=== PATIENT | female | born 1960 | race Caucasian/White ===

== ENCOUNTER 2016-09-29 18:20 | Emergency (ER) | payer OTHER ==
[~2016-09-29] VITALS: Ht 165.1 cm; Wt 77.1 kg
[~2016-09-29 18:20] MED LIST: ATOR40TA59 PO; BENZ100C2 PO; BENZ200C39 PO; CRESTOR20 MG PO; DOCU-27 PO; DOXY100T PO; DULO30CA2 PO; FERR325T58 PO; GLYB2.5T2 PO; IBUP-1007 PO; INSU300I SQ; MECL25TA3 PO; METF-620 PO; OMEP40CA5 PO; OXYC-244 PO; OXYC-323 PO; PRED20TA PO; PROAIR HFA8.5 GM INH; SENN-22 PO; SERT50TA PO
[2016-09-29] MEDS ORDERED: IBUPROFEN 800 MG TABLET. PO ONE (20:00)
[2016-09-29] MEDS ORDERED: MECLIZINE HCL 12.5 MG TABLET. PO ONE (20:00)
[2016-09-29] MEDS ORDERED: DIAZ5TAB PO (20:29)
[2016-09-29] MEDS ORDERED: MECL25TA3 PO (20:29)
[2016-09-29] MEDS ORDERED: ONDA4TAB10 PO (20:29)
[2016-09-29 20:30] VITALS: BP 130/67
--- NOTE | 2016-09-29 20:30 | PHYS DOC ---
Past Medical History Past Medical History: Diabetes-Type I, GERD, High Cholesterol Additional Past Medical Histor: Ryan's esophogus Past Surgical History: Hysterectomy, Other Additional Past Surgical Histo: bilateral mastectomy, removal of pelvic tumor Alcohol Use: None Drug Use: None Adult General Chief Complaint Chief Complaint: DIZZY/LIGHT HEADED HPI HPI Patient is a 56 year old female presenting to the emergency department for evaluation of intermittent vertigo that has been going on for the past 3 weeks. Patient states that it only affects her when she is moving her head. She says that it is happening more often now any walking and bending over makes her have the room spinning sensation. She says lying still she does not feel it but when she does have the room spinning sensation she feels quite nauseated. She denies any pain fevers chills nausea vomiting or other systemic symptoms. She does have pressure sensation in the left ear. Review of Systems Review of Systems Constitutional: Denies fever or chills [] Respiratory: Denies cough or shortness of breath [] Cardiovascular: No additional information not addressed in HPI [] GI: Denies abdominal pain, nausea, vomiting, bloody stools or diarrhea [] : Denies dysuria or hematuria [] Musculoskeletal: Denies back pain or joint pain [] Integument: Denies rash or skin lesions [] Neurologic: Denies headache, focal weakness or sensory changes [] Current Medications Current Medications Current Medications Medications (Trade) Dose Ordered Sig/[facility] Start Time Stop Time Status Last Admin Dose Admin Ibuprofen (Motrin) 800 mg 1X ONCE 09/29/16 20:00 09/29/16 20:01 DC 09/29/16 20:06 800 MG Meclizine HCl (Antivert) 25 mg 1X ONCE 09/29/16 20:00 09/29/16 20:01 DC 09/29/16 20:06 25 MG Allergies Allergies Allergies Coded Allergies Type Severity Reaction Last Updated Verified codeine Allergy Intermediate 03/05/16 Yes Physical Exam Physical Exam Constitutional: Well developed, well nourished, no acute distress, non-toxic appearance. [] HENT: Normocephalic, atraumatic, bilateral external ears normal, oropharynx moist, no oral exudates, nose normal. [] Eyes: PERRLA, EOMI, conjunctiva normal, no discharge. [] Neck: Normal range of motion, no tenderness, supple, no stridor. [] Cardiovascular:Heart rate regular rhythm, no murmur [] Lungs & Thorax: Bilateral breath sounds clear to auscultation [] Abdomen: Bowel sounds normal, soft, no tenderness, no masses, no pulsatile masses. [] Skin: Warm, dry, no erythema, no rash. [] Back: No tenderness, no CVA tenderness. [] Extremities: No tenderness, no cyanosis, no clubbing, ROM intact, no edema. [] Neurologic: Alert and oriented X 3, normal motor function, normal sensory function, no focal deficits noted. [] Psychologic: Affect normal, judgement normal, mood normal. [] Current Patient Data Vital Signs Vital Signs Date Time Temp Pulse Resp B/P (MAP) Pulse Ox O2 Delivery O2 Flow Rate FiO2 09/29/16 19:35 98.1 74 20 136/63 (87) 96 Room Air 98.1 Lab Values Laboratory Tests Test 09/29/16 19:42 Glucose (Fingerstick) 179 mg/dL (70-99) H EKG EKG [] Radiology/Procedures Radiology/Procedures [] Course & Med Decision Making Course & Med Decision Making Patient with classic positional intermittent vertigo. Patient is a symptomatic at rest and she only feels this when walking and her neurologic exam is completely normal including gait finger to nose and heel to eller. Patient will be discharged with meclizine and Valium and ibuprofen and instructions for Nasonex. Patient told to come back to the ER if her vertigo is intractable orders happening at rest. Patient aware and agreeable with plan for discharge and verbalized understanding of the need for short-term follow-up and strict ER return precautions discussed worsening pain weakness vertigo or other general concerns. Dragon Disclaimer Dragon Disclaimer This electronic medical record was generated, in whole or in part, using a voice recognition dictation system. Departure Departure Impression: Primary Impression: Vertigo Disposition: 01 HOME, SELF-CARE Condition: GOOD Referrals: DINORAH STEWART MD (PCP) Patient Instructions: Benign Positional Vertigo Additional Instructions: TAKE 400MG OF IBUPROFEN EVERY 6 HOURS AND NASONEX FOR EAR FULLNESS. FOLLOW WITH YOUR PCP LATER THIS WEEK TO ENSURE IMPROVEMENT AND COME BACK TO THE ED SOONER WITH ANY NEW OR WORSENING SYMPTOMS. THANK YOU! Scripts Diazepam (VALIUM) 5 Mg Tablet 5 MG PO TID Y for MUSCLE SPASMS, #10 TAB Prov: BLAKE FRANK DO 09/29/16 Ondansetron (ZOFRAN ODT) 4 Mg Tab.rapdis 4 MG PO BID Y for NAUSEA/VOMITING, #10 TAB Prov: BLAKE FRANK DO 09/29/16 Meclizine Hcl (MECLIZINE HCL) 25 Mg Tablet 1 TAB PO PRN TID Y for VERTIGO, #30 TAB Prov: BLAKE FRANK DO 09/29/16 BLAKE FRANK DO Sep 29, 2016 20:30
== END 2016-09-29 20:45 | disposition home or self-care (01) ==
LOC: ER 18:20
DX: R42 Dizziness and giddiness (principal); R11.0 Nausea; E10.9 Type 1 diabetes mellitus without complications; K21.9 Gastro-esophageal reflux disease without esophagitis; E78.00 Pure hypercholesterolemia, unspecified; K22.70 Barrett's esophagus without dysplasia; Z88.5 Allergy status to narcotic agent; Z90.13 Acquired absence of bilateral breasts and nipples; Z90.710 Acquired absence of both cervix and uterus
CPT/HCPCS: 82962; 99284; J8597

== ENCOUNTER 2016-10-03 10:32 | Inpatient (IN) | payer OTHER ==
[~2016-10-03] VITALS: Ht 165.1 cm; Wt 77.1 kg
[2016-10-03] MEDS: IV NORMAL SALINE 1000ML BAG 1,000 ML IV SCH ×2 (02:00→13:30)
[~2016-10-03 10:32] MED LIST changes: +BENZ100C15 PO; -BENZ100C2 PO; -BENZ200C39 PO; +BENZ200C47 PO; +DIAZ5TAB PO; +DOCU-109 PO; -DOCU-27 PO; +ONDA4TAB10 PO; -OXYC-244 PO; +OXYC-327 PO
[2016-10-03] MEDS ORDERED: IV NORMAL SALINE 1000ML BAG 1,000 ML IV SCH (11:26)
[2016-10-03] MEDS ORDERED: MECLIZINE HCL 12.5 MG TABLET. PO ONE (11:30)
[2016-10-03] MEDS ORDERED: ONDANSETRON PF 4 MG/2 ML VIAL. IV ONE (11:30)
[2016-10-03 11:52] LABS: EOS % 2 % (0-3); HEMOGLOBIN 12.3 g/dL (12.0-15.5); LYMPH % 27 % (24-48); MEAN CORPUSCULAR HEMOGLOBIN 24 pg (25-35); MEAN CORPUSCULAR HGB CONC 32 g/dL (31-37); MEAN CORPUSCULAR VOLUME 77 fL (79-100); MONO % 5 % (0-9); NEUT % 65 % (31-73); PLATELET COUNT 198 x10^3/uL (140-400); RED BLOOD COUNT 5.07 x10^6/uL (3.50-5.40); RED CELL DISTRIBUTION WIDTH 16.8 % (11.5-14.5); WHITE BLOOD COUNT 6.7 x10^3/uL (4.0-11.0)
[2016-10-03 11:53] LABS: BASO % 1 % (0-3); LYMPH # 1.8 x10^3/uL (1.0-4.8)
[2016-10-03 11:54] LABS: INR 1.1 (0.8-1.1); PROTHROMBIN TIME PATIENT 13.4 SEC (11.7-14.0)
--- NOTE | 2016-10-03 11:58 | RAD ---
CT of the head without contrast, 10/13/2016: History: Vertigo Comparison is made to a study from 03/15/2016. The ventricles are within normal limits in size. There is no shift of the midline structures. There is no evidence of acute intracranial hemorrhage or mass effect. Minimal bilateral basal ganglia calcifications are present. IMPRESSION: No acute intracranial abnormality is detected. PQRS Compliance Statement: One or more of the following individualized dose reduction techniques were utilized for this examination: 1. Automated exposure control 2. Adjustment of the mA and/or kV according to patient size 3. Use of iterative reconstruction technique
[2016-10-03 11:59] LABS: CREATININE 0.9 mg/dL (0.6-1.0); GFR 65.2; POTASSIUM 4.1 mmol/L (3.5-5.1)
[2016-10-03 12:03] LABS: ALBUMIN 3.5 g/dL (3.4-5.0); ALBUMIN/GLOBULIN RATIO 0.7 (1.0-1.7); CALCIUM 9.1 mg/dL (8.5-10.1); TOTAL BILIRUBIN 0.3 mg/dL (0.2-1.0); TOTAL PROTEIN 8.7 g/dL (6.4-8.2)
[2016-10-03 12:04] LABS: MAGNESIUM 1.3 mg/dL (1.8-2.4)
[2016-10-03 12:24] LABS: BACTERIA,URINE FEW /HPF (0-FEW); BILIRUBIN,URINE NEGATIVE (NEG); GLUCOSE,URINE >=1000 mg/dL (NEG); NITRITE,URINE NEGATIVE (NEG); PH,URINE 5.5; PROTEIN,URINE 30 mg/dL (NEG-TRACE); RBC,URINE 0 /HPF (0-2); SQUAMOUS EPITHELIAL CELL,UR MOD /LPF; UROBILINOGEN,URINE 0.2 mg/dL (0.2 mg/dL)
[2016-10-03] MEDS ORDERED: ACETAMINOPHEN 325 MG TABLET. PO PRN (13:30)
[2016-10-03] MEDS ORDERED: fentaNYL PF VIAL 100 MCG/2 ML VIAL IV PRN (13:30)
[2016-10-03] MEDS ORDERED: ONDANSETRON PF 4 MG/2 ML VIAL. IV PRN (13:30)
--- NOTE | 2016-10-03 13:56 | PHYS DOC ---
Past Medical History Past Medical History: Diabetes-Type I, GERD, High Cholesterol Additional Past Medical Histor: Ryan's esophogus Past Surgical History: Hysterectomy, Other Additional Past Surgical Histo: bilateral mastectomy, removal of pelvic tumor Alcohol Use: None Drug Use: None Adult General Chief Complaint Chief Complaint: DIZZY/LIGHT HEADED HPI HPI Patient is a 56 year old female who presents with complaint of dizziness. Patient states that she has been having symptoms for the past 2-3 weeks. Patient was seen 4 days ago in the emergency department and treated for peripheral vertigo with meclizine and Valium. Patient states that despite outpatient treatment she is still had worsening symptoms. Patient states that the symptoms do worsen with positional changes. Patient states that she has had to stay in bed and only be able to get up to use the restroom due to severe symptoms. Patient denies any fevers. The patient is concerned since her symptoms have resolved whether she may have experienced a stroke. Patient denies any unilateral weakness or difficulty with speech or swallowing. Patient does admit to nausea associated with her dizziness. Review of Systems Review of Systems Constitutional: Denies fever or chills [] Eyes: Denies change in visual acuity, redness, or eye pain [] HENT: Denies nasal congestion or sore throat [] Respiratory: Denies cough or shortness of breath [] Cardiovascular: Denies chest pain or edema [] GI: Nausea, denies abdominal pain, vomiting, bloody stools or diarrhea [] : Denies dysuria or hematuria [] Musculoskeletal: Denies back pain or joint pain [] Integument: Denies rash or skin lesions [] Neurologic: Dizziness, denies focal weakness or sensory changes [] Current Medications Current Medications Current Medications Medications (Trade) Dose Ordered Sig/[facility] Start Time Stop Time Status Last Admin Dose Admin Diazepam (Valium) 2 mg 1X ONCE 10/03/16 11:30 10/03/16 11:31 DC 10/03/16 12:02 2 MG Meclizine HCl (Antivert) 25 mg 1X ONCE 10/03/16 11:30 10/03/16 11:31 DC 10/03/16 11:57 25 MG Ondansetron HCl (Zofran) 4 mg 1X ONCE 10/03/16 11:30 10/03/16 11:31 DC 10/03/16 11:57 4 MG Sodium Chloride 1,000 ml @ 1,000 mls/hr Q1H 10/03/16 11:26 10/03/16 12:25 DC 10/03/16 12:03 1,000 MLS/HR Allergies Allergies Allergies Coded Allergies Type Severity Reaction Last Updated Verified codeine Allergy Intermediate 03/05/16 Yes Physical Exam Physical Exam Constitutional: Alert, afebrile, appears fatigued and in moderate discomfort. [] HENT: Normocephalic, atraumatic, bilateral external ears normal, oropharynx moist, no oral exudates, nose normal. [] Eyes: PERRLA, EOMI, conjunctiva normal, no discharge. [] Neck: Normal range of motion, no tenderness, supple, no stridor. [] Cardiovascular:Heart rate regular rhythm, no murmur [] Lungs & Thorax: Bilateral breath sounds clear to auscultation [] Abdomen: Bowel sounds normal, soft, no tenderness, no masses, no pulsatile masses. [] Skin: Warm, dry, no erythema, no rash. [] Back: No tenderness, no CVA tenderness. [] Extremities: No tenderness, no cyanosis, no clubbing, ROM intact, no edema. [] Neurologic: Alert and oriented X 3, normal motor function, normal sensory function, no focal deficits noted. [] Current Patient Data Vital Signs Vital Signs Date Time Temp Pulse Resp B/P (MAP) Pulse Ox O2 Delivery O2 Flow Rate FiO2 10/03/16 10:36 98.4 80 18 162/75 (104) 96 Room Air 98.4 Lab Values Laboratory Tests Test 10/03/16 11:30 10/03/16 12:05 White Blood Count 6.7 x10^3/uL (4.0-11.0) Red Blood Count 5.07 x10^6/uL (3.50-5.40) Hemoglobin 12.3 g/dL (12.0-15.5) Hematocrit 39.0 % (36.0-47.0) Mean Corpuscular Volume 77 fL (79-100) L Mean Corpuscular Hemoglobin 24 pg (25-35) L Mean Corpuscular Hemoglobin Concent 32 g/dL (31-37) Red Cell Distribution Width 16.8 % (11.5-14.5) H Platelet Count 198 x10^3/uL (140-400) Neutrophils (%) (Auto) 65 % (31-73) Lymphocytes (%) (Auto) 27 % (24-48) Monocytes (%) (Auto) 5 % (0-9) Eosinophils (%) (Auto) 2 % (0-3) Basophils (%) (Auto) 1 % (0-3) Neutrophils # (Auto) 4.3 x10^3uL (1.8-7.7) Lymphocytes # (Auto) 1.8 x10^3/uL (1.0-4.8) Monocytes # (Auto) 0.3 x10^3/uL (0.0-1.1) Eosinophils # (Auto) 0.1 x10^3/uL (0.0-0.7) Basophils # (Auto) 0.0 x10^3/uL (0.0-0.2) Prothrombin Time 13.4 SEC (11.7-14.0) Prothrombin Time INR 1.1 (0.8-1.1) PTT 34 SEC (24-38) Sodium Level 135 mmol/L (136-145) L Potassium Level 4.1 mmol/L (3.5-5.1) Chloride Level 98 mmol/L (98-107) Carbon Dioxide Level 28 mmol/L (21-32) Anion Gap 9 (6-14) Blood Urea Nitrogen 11 mg/dL (7-20) Creatinine 0.9 mg/dL (0.6-1.0) Estimated GFR (Cockcroft-Gault) 65.2 BUN/Creatinine Ratio 12 (6-20) Glucose Level 281 mg/dL (70-99) H Calcium Level 9.1 mg/dL (8.5-10.1) Magnesium Level 1.3 mg/dL (1.8-2.4) L Total Bilirubin 0.3 mg/dL (0.2-1.0) Aspartate Amino Transferase (AST) 60 U/L (15-37) H Alanine Aminotransferase (ALT) 62 U/L (14-59) H Alkaline Phosphatase 129 U/L (46-116) H Total Protein 8.7 g/dL (6.4-8.2) H Albumin 3.5 g/dL (3.4-5.0) Albumin/Globulin Ratio 0.7 (1.0-1.7) L Lipase 388 U/L (73-393) Urine Collection Type Void Urine Color Yellow Urine Clarity Turbid Urine pH 5.5 Urine Specific Jones 1.025 Urine Protein 30 mg/dL (NEG-TRACE) Urine Glucose (UA) >=1000 mg/dL (NEG) Urine Ketones (Stick) Negative mg/dL (NEG) Urine Blood Negative (NEG) Urine Nitrite Negative (NEG) Urine Bilirubin Negative (NEG) Urine Urobilinogen Dipstick 0.2 mg/dL (0.2 mg/dL) Urine Leukocyte Esterase Negative (NEG) Urine RBC 0 /HPF (0-2) Urine WBC 1-4 /HPF (0-4) Urine Squamous Epithelial Cells Mod /LPF Urine Bacteria Few /HPF (0-FEW) Urine Mucus Marked /LPF Laboratory Tests 10/03/16 11:30 Laboratory Tests 10/03/16 11:30 EKG EKG Interpreted by me: Heart rate 83, sinus rhythm, normal intervals, normal axis, no acute ST/T-wave abnormalities present [] Radiology/Procedures Radiology/Procedures [facility] [address] [place], [place] [id number] IMAGING REPORT Signed PATIENT: AUDREY BLANCO ACCOUNT: [id number] : 1960 LOCATION: ER AGE: 56 SEX: F EXAM STATUS: REG ER ORD. PHYSICIAN: HANNAH RECINOS MD REASON: vertigo symptoms for 3 weeks PROCEDURE: CT HEAD WO CONTRAST CT of the head without contrast, 10/13/2016: History: Vertigo Comparison is made to a study from 03/15/2016. The ventricles are within normal limits in size. There is no shift of the midline structures. There is no evidence of acute intracranial hemorrhage or mass effect. Minimal bilateral basal ganglia calcifications are present. IMPRESSION: No acute intracranial abnormality is detected. PQRS Compliance Statement: One or more of the following individualized dose reduction techniques were utilized for this examination: 1. Automated exposure control 2. Adjustment of the mA and/or kV according to patient size 3. Use of iterative reconstruction technique DICTATED and SIGNED BY: JOHNNIE BARNHART MD DATE: 10/03/16 6515 CC: HANNAH RECINOS MD; DINORAH STEWART MD ~ [] Course & Med Decision Making Course & Med Decision Making Pertinent Labs and Imaging studies reviewed. (See chart for details) Patient was given IV Valium and oral meclizine with mild improvement in symptoms. The patient continues to have significant symptoms that are keeping her from being able to perform activities of daily living. Due to failure of outpatient treatment, the patient will need admission to the hospital for continued symptomatic control and further workup. I spoke with Dr. Crespo who accepted care patient in hospital. A consult was placed to Dr. Hughes of neurology to follow with patient in hospital. Dragon Disclaimer Dragon Disclaimer This electronic medical record was generated, in whole or in part, using a voice recognition dictation system. Departure Departure Impression: Primary Impression: Vertigo Additional Impression: Failure of outpatient treatment Disposition: ADMITTED INPATIENT Admitting Physician: Rupa Crespo Condition: STABLE Referrals: DINORAH STEWART MD (PCP) Problem Qualifiers HANNAH RECINOS MD Oct 03, 2016 13:56
[2016-10-03 14:00] VITALS: BP 135/65
--- NOTE | 2016-10-03 14:23 | ACF ---
Admission Forms Criteria VERTIGO Clinical Indications for Admission to Inpatient Care (Place 'X' for any and all applicable criteria): Admission is indicated for ANY ONE of the following(1)(2)(3)(4): [ ]I. Acute bacterial labyrinthitis [ ]II. A suspected etiology that requires admission for treatment [X]III. Inpatient admission required rather than observation care (Also use Vertigo: Observation Care as appropriate) because of ANY ONE of the following: [ ]a) Hemodynamic instability that is severe or persistent [X]b) Signs or symptoms that are severe or persistent (eg, vomiting , orthostasis, inability to ambulate) [ ]c) Cardiac arrhythmias of immediate concern [ ]d) Severe (new) neurologic findings requiring inpatient care as indicated by ANY ONE of the following(6)(7) [ ]1) Cerebral bleeding, ischemia, or vasospasm(8)(9) [ ]2) Increased intracranial pressure or hydrocephalus(10) (11)(12) [ ]3) Papilledema [ ]4) Cerebral edema [ ]5) Mass effect on CT scan [ ]e) Vomiting that is severe or persistent [ ]f) Continuous IV infusion of anticoagulation, platelet inhibitor, vasoactive, or antiarrhythmic medication [ ]g) Cerebral bleeding, hydrocephalus, or vasospasm monitoring(14) [ ]h) Increased intracranial pressure or cerebral edema monitoring [ ]i) Other condition, treatment or monitoring requiring inpatient admission [ ]IV. Cerebellar, brainstem, or cerebral ischemia or hemorrhage(5) Extended stay beyond goal length of stay may be needed for evaluating and treating a specific cause of dizziness, including(26): [ ]a) Head injury (27) ( Also use Traumatic Brain Injury, Nonsurgical Treatment guideline) [ ]b) New-onset vertebrobasilar vascular insufficiency(23) [ ]c) Acute Meniere disease with intractable symptoms [ ]d) Cardiac arrhythmias or conduction defects [ ]e) Acute neurologic event causing dizziness [ ]f) Myocardial ischemia [ ]g) Acute bacterial labyrinthitis(1) [ ]h) Severe acute vestibular neuronitis(18) The original [employer] content created by [employer]án [employer] has been revised. The portions of the content which have been revised are identified through the use of italic text or in bold, and [employer]án [employer] has neither reviewed nor approved the modified material. All other unmodified content is copyright [facility]. Please see references footnoted in the original [facility] edition 2016 Admission Criteria Met?: Yes CEASAR GODOY Oct 03, 2016 14:23
[2016-10-03] MEDS ORDERED: INSU100I13 SQ (14:47)
[2016-10-03] MEDS ORDERED: LISI2.5T PO (14:47)
[2016-10-03] MEDS ORDERED: INSU100I17 SQ (14:47)
--- NOTE | 2016-10-03 14:54 | EKG ---
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
--- NOTE | 2016-10-03 18:00 | HP ---
ADMIT DATE: 10/03/2016 CHIEF COMPLAINT: Vertigo. HISTORY OF PRESENT ILLNESS: The patient is a pleasant 56-year-old female who presented to the ER with vertigo. She rates it 11/03. She has got associated nausea. It has been occurring for a day or so. She tried taking some home meds, but that was not working. I discussed the case with the ER physician. We are going to admit the patient and consult Neurology. PAST MEDICAL HISTORY: Pneumonia, sepsis, right shoulder fracture, bronchitis, diabetes, breast cancer with double mastectomy, hysterectomy. ALLERGIES: None. FAMILY HISTORY: Breast cancer. SOCIAL HISTORY: She does not drink, smoke or take drugs. MEDICATIONS: Reviewed, please refer to the MRAD. REVIEW OF SYSTEMS: GENERAL: No history of weight change, weakness or fevers. SKIN: No bruising, hair changes or rashes. EYES: No blurred, double or loss of vision. NOSE AND THROAT: No history of nosebleeds, hoarseness or sore throat. HEART: No history of palpitations, chest pain or shortness of breath on exertion. LUNGS: Denies cough, hemoptysis, wheezing or shortness of breath. GASTROINTESTINAL: Denies changes in appetite, nausea, vomiting, diarrhea or constipation. GENITOURINARY: No history of frequency, urgency, hesitancy or nocturia. NEUROLOGIC: She complains of vertigo. PSYCHIATRIC: No history of panic, anxiety or depression. ENDOCRINE: No history of heat or cold intolerance, polyuria or polydipsia. EXTREMITIES: Denies muscle weakness, joint pain, pain on walking or stiffness. PHYSICAL EXAMINATION: VITAL SIGNS: Temperature afebrile, pulse 68, respirations 18, blood pressure 144/90. GENERAL: She is alert, cooperative. HEART: Normal S1, S2. LUNGS: Clear. ABDOMEN: Soft, positive bowel sounds. EXTREMITIES: No edema. SKIN: No rashes. PSYCHIATRIC: She is stable. VASCULAR: Good capillary refill. ENDOCRINE: No thyromegaly. LYMPHATICS: No cervical nodes. HEMATOPOIETIC: No bruising. LABORATORY DATA: Reviewed. CT of the head was negative. ASSESSMENT AND PLAN: Vertigo, suspect vestibular dysfunction, perhaps a viral vestibulitis. The patient has been admitted. We will give her p.r.n. Antivert, IV fluids. Consult Dr. Hughes. PT, OT. Continue home medicines. ADAML Darrell ARITA DO DR: Elen JOB#: [id number] / [id number]
[2016-10-03 19:47] VITALS: BP_SYST 101; BP_SYST 150; BP_DIAS 44; BP_DIAS 45
[2016-10-03 23:26] VITALS: BP 104/54
[2016-10-04] MEDS: MECLIZINE HCL 12.5 MG TABLET. PO PRN (03:16)
[2016-10-04 04:48] LABS: BASO % 1 % (0-3); EOS % 2 % (0-3); HEMATOCRIT 35.1 % (36.0-47.0); HEMOGLOBIN 10.8 g/dL (12.0-15.5); LYMPH # 1.8 x10^3/uL (1.0-4.8); LYMPH % 37 % (24-48); MEAN CORPUSCULAR HEMOGLOBIN 24 pg (25-35); MEAN CORPUSCULAR HGB CONC 31 g/dL (31-37); MEAN CORPUSCULAR VOLUME 77 fL (79-100); MONO % 6 % (0-9); NEUT % 54 % (31-73); PLATELET COUNT 161 x10^3/uL (140-400); RED BLOOD COUNT 4.55 x10^6/uL (3.50-5.40); RED CELL DISTRIBUTION WIDTH 16.7 % (11.5-14.5); WHITE BLOOD COUNT 4.9 x10^3/uL (4.0-11.0)
[2016-10-04 05:15] LABS: CALCIUM 8.4 mg/dL (8.5-10.1); CREATININE 0.7 mg/dL (0.6-1.0); GFR 87.2; POTASSIUM 4.4 mmol/L (3.5-5.1)
[2016-10-04 07:00] VITALS: BP 132/54
[2016-10-04] MEDS: IV NORMAL SALINE 1000ML BAG 1,000 ML IV SCH (09:30)
[2016-10-04] MEDS: ASPIRIN CHEWABLE 81 MG TABLET. PO SCH (10:23)
[2016-10-04] MEDS ORDERED: ALBUTEROL SULFATE 2.5 MG/3 ML NEBU. NEB PRN (10:30)
[2016-10-04] MEDS ORDERED: ONDANSETRON ODT 4 MG TAB.RAPDIS. PO PRN (10:30)
[2016-10-04] MEDS ORDERED: NON FORMULARY ITEM (Albuterol Sulfate (Proair Hfa Inhaler) 1 PUFF) INH PRN (10:30)
[2016-10-04] MEDS: DULoxetine HCL 30 MG CAPSULE.DR PO SCH (10:35)
[2016-10-04] MEDS: oxyCODONE/APAP 5/325 1 TAB TABLET PO PRN ×2 (10:35→17:50)
[2016-10-04] MEDS: SERTRALINE 50 MG TABLET. PO SCH (10:35)
[2016-10-04] MEDS: FERROUS SULFATE 325 MG TABLET. PO SCH (10:35)
[2016-10-04] MEDS: PANTOPRAZOLE 40 MG TABLET.DR. PO SCH (10:35)
[2016-10-04] MEDS: glyBURIDE 5 MG TABLET PO SCH (10:36)
[2016-10-04] MEDS: LISINOPRIL 2.5 MG TABLET PO SCH (10:36)
--- NOTE | 2016-10-04 10:37 | PDOC ---
PROGRESS NOTES Chief Complaint Chief Complaint Vertigo ASSESSMENT AND PLAN: 1. Vertigo: ?vestibular dysfxn. neurology consult pending, MRI brain pending. treat symptomatically for now 2. Neck pain: new in past couple of days. eval with MRI (add on to brain scan ); heat, pain meds for now. no UEs neurological dysfxn 3. DM: on metformin, glyburide and insulin at home. currently good control ( poor PO intake). hold metformin for now. add ISS 4. HTN: well controlled on home meds 5. HLD: on statin 6. Chronic pain syndrome. continue home meds 7. Abn LFTs: chronic. previous viral hepatitis panel neg 8. Anemia: microcytic. by previous iron studies, due to combo of iron deficiency and chronic inflammation. on PO repletion 9. Prophylaxis: lovenox History of Present Illness History of Present Illness c/o persistent dizziness, but able to walk, took shower this AM. no nausea, but did not eat breakfast. Vitals Vitals Vital Signs Date Time Temp Pulse Resp B/P (MAP) Pulse Ox O2 Delivery O2 Flow Rate FiO2 10/04/16 07:00 98.4 66 18 132/54 (80) 93 Room Air 98.4 Physical Exam General: Alert, Oriented X3, Cooperative, No acute distress Heart: Regular rate Lungs: Clear Abdomen: Normal bowel sounds, Soft, No tenderness Extremities: No edema Skin: No rashes Labs LABS Laboratory Tests Test 10/03/16 11:30 10/03/16 12:05 10/03/16 16:25 10/03/16 20:42 White Blood Count 6.7 x10^3/uL (4.0-11.0) Red Blood Count 5.07 x10^6/uL (3.50-5.40) Hemoglobin 12.3 g/dL (12.0-15.5) Hematocrit 39.0 % (36.0-47.0) Mean Corpuscular Volume 77 fL (79-100) Mean Corpuscular Hemoglobin 24 pg (25-35) Mean Corpuscular Hemoglobin Concent 32 g/dL (31-37) Red Cell Distribution Width 16.8 % (11.5-14.5) Platelet Count 198 x10^3/uL (140-400) Neutrophils (%) (Auto) 65 % (31-73) Lymphocytes (%) (Auto) 27 % (24-48) Monocytes (%) (Auto) 5 % (0-9) Eosinophils (%) (Auto) 2 % (0-3) Basophils (%) (Auto) 1 % (0-3) Neutrophils # (Auto) 4.3 x10^3uL (1.8-7.7) Lymphocytes # (Auto) 1.8 x10^3/uL (1.0-4.8) Monocytes # (Auto) 0.3 x10^3/uL (0.0-1.1) Eosinophils # (Auto) 0.1 x10^3/uL (0.0-0.7) Basophils # (Auto) 0.0 x10^3/uL (0.0-0.2) Prothrombin Time 13.4 SEC (11.7-14.0) Prothromb Time International Ratio 1.1 (0.8-1.1) Activated Partial Thromboplast Time 34 SEC (24-38) Sodium Level 135 mmol/L (136-145) Potassium Level 4.1 mmol/L (3.5-5.1) Chloride Level 98 mmol/L (98-107) Carbon Dioxide Level 28 mmol/L (21-32) Anion Gap 9 (6-14) Blood Urea Nitrogen 11 mg/dL (7-20) Creatinine 0.9 mg/dL (0.6-1.0) Estimated GFR (Cockcroft-Gault) 65.2 BUN/Creatinine Ratio 12 (6-20) Glucose Level 281 mg/dL (70-99) Calcium Level 9.1 mg/dL (8.5-10.1) Magnesium Level 1.3 mg/dL (1.8-2.4) Total Bilirubin 0.3 mg/dL (0.2-1.0) Aspartate Amino Transf (AST/SGOT) 60 U/L (15-37) Alanine Aminotransferase (ALT/SGPT) 62 U/L (14-59) Alkaline Phosphatase 129 U/L (46-116) Total Protein 8.7 g/dL (6.4-8.2) Albumin 3.5 g/dL (3.4-5.0) Albumin/Globulin Ratio 0.7 (1.0-1.7) Lipase 388 U/L (73-393) Urine Collection Type Void Urine Color Yellow Urine Clarity Turbid Urine pH 5.5 Urine Specific Orient 1.025 Urine Protein 30 mg/dL (NEG-TRACE) Urine Glucose (UA) >=1000 mg/dL (NEG) Urine Ketones (Stick) Negative mg/dL (NEG) Urine Blood Negative (NEG) Urine Nitrite Negative (NEG) Urine Bilirubin Negative (NEG) Urine Urobilinogen Dipstick 0.2 mg/dL (0.2 mg/dL) Urine Leukocyte Esterase Negative (NEG) Urine RBC 0 /HPF (0-2) Urine WBC 1-4 /HPF (0-4) Urine Squamous Epithelial Cells Mod /LPF Urine Bacteria Few /HPF (0-FEW) Urine Mucus Marked /LPF Glucose (Fingerstick) 149 mg/dL (70-99) 174 mg/dL (70-99) Test 10/04/16 03:30 10/04/16 07:33 White Blood Count 4.9 x10^3/uL (4.0-11.0) Red Blood Count 4.55 x10^6/uL (3.50-5.40) Hemoglobin 10.8 g/dL (12.0-15.5) Hematocrit 35.1 % (36.0-47.0) Mean Corpuscular Volume 77 fL (79-100) Mean Corpuscular Hemoglobin 24 pg (25-35) Mean Corpuscular Hemoglobin Concent 31 g/dL (31-37) Red Cell Distribution Width 16.7 % (11.5-14.5) Platelet Count 161 x10^3/uL (140-400) Neutrophils (%) (Auto) 54 % (31-73) Lymphocytes (%) (Auto) 37 % (24-48) Monocytes (%) (Auto) 6 % (0-9) Eosinophils (%) (Auto) 2 % (0-3) Basophils (%) (Auto) 1 % (0-3) Neutrophils # (Auto) 2.7 x10^3uL (1.8-7.7) Lymphocytes # (Auto) 1.8 x10^3/uL (1.0-4.8) Monocytes # (Auto) 0.3 x10^3/uL (0.0-1.1) Eosinophils # (Auto) 0.1 x10^3/uL (0.0-0.7) Basophils # (Auto) 0.0 x10^3/uL (0.0-0.2) Sodium Level 144 mmol/L (136-145) Potassium Level 4.4 mmol/L (3.5-5.1) Chloride Level 107 mmol/L (98-107) Carbon Dioxide Level 32 mmol/L (21-32) Anion Gap 5 (6-14) Blood Urea Nitrogen 8 mg/dL (7-20) Creatinine 0.7 mg/dL (0.6-1.0) Estimated GFR (Cockcroft-Gault) 87.2 Glucose Level 178 mg/dL (70-99) Calcium Level 8.4 mg/dL (8.5-10.1) Glucose (Fingerstick) 149 mg/dL (70-99) BALJIT MOSS MD Oct 04, 2016 10:37
[2016-10-04] MEDS: ENOXAPARIN 40 MG/0.4 ML SYRINGE. SQ SCH (10:44)
[2016-10-04 10:57] VITALS: BP 124/74
[2016-10-04 14:56] VITALS: BP 115/53
--- NOTE | 2016-10-04 15:27 | RAD ---
Indication vertigo. Pain in the back of the head. Duration approximately 3 weeks. MRI examination of the head was performed. Imaging sequences which were obtained include sagittal T1, axial T1, T2, FLAIR and gradient echo sequences. Axial ADC and DWI maps were also obtained. No prior MRI imaging of the head is available. On the ADC and DWI maps no recent or acute infarct is seen. On the gradient echo sequence there is no evidence of hemorrhage. No significant microvascular disease is seen on the FLAIR sequence. The ventricles and sulci are normal. No acute or significant finding is seen. IMPRESSION: No acute or significant finding seen in the head
--- NOTE | 2016-10-04 16:46 | PDOC2 ---
CONSULT Date of Consult Date of Consult DATE: 10/04/16 TIME: 16:44 Reason for Consult Reason for Consult: Vertigo History of Present Illness Reason for Visit: This patient is 56-year-old woman who presented to emergency room with complaint of vertigo. Patient was recently evaluated for symptoms of vertigo patient reports last few months she is having problems with dizziness. She was having some worsening of symptoms in last few days. Patient currently has improvement in her symptoms. Patient will have more symptoms of vertigo, dizziness when she is trying to change her body position in bed or trying to get out of the bed quickly. Likely benign positional vertigo. MRI of the brain done did not show any acute intracranial process We'll treat symptomatically will use meclizine as needed We can also use low-dose Valium to help with symptoms. Past Medical History Cardiovascular: Hyperlipidemia Pulmonary: Bronchitis CENTRAL NERVOUS SYSTEM: Periperal neuropathy GI: GERD, Other Heme/Onc: Anemia NOS, Cancer Hepatobiliary: No pertinent hx Psych: Depression Musculoskeletal: Osteoarthritis Rheumatologic: No pertinent hx Infectious disease: No pertinent hx Renal/: UTI Endocrine: Diabetes Past Surgical History Past Surgical History: Mastectomy, Hysterectomy Family History Family History: Cancer, Coronary Artery Disease Social History ALCOHOL: none Drugs: None Lives: with Family Current Problem List Problem List Problems Medical Problems: (1) Failure of outpatient treatment Status: Acute (2) Vertigo Status: Acute Current Medications Current Medications Current Medications Ondansetron HCl (Zofran) 4 mg 1X ONCE IV Last administered on 10/03/16 11:57; Start 10/03/16 at 11:30; Stop 10/03/16 at 11:31; Status DC Meclizine HCl (Antivert) 25 mg 1X ONCE PO Last administered on 10/03/16 11:57 ; Start 10/03/16 at 11:30; Stop 10/03/16 at 11:31; Status DC Sodium Chloride 1,000 ml @ 1,000 mls/hr Q1H IV Last administered on 10/03/16 12:03; Start 10/03/16 at 11:26; Stop 10/03/16 at 12:25; Status DC Diazepam (Valium) 2 mg 1X ONCE IV Last administered on 10/03/16 12:02; Start 10/03/16 at 11:30; Stop 10/03/16 at 11:31; Status DC Ondansetron HCl (Zofran) 4 mg PRN Q8HRS PRN IV NAUSEA/VOMITING; Start 10/03/16 at 13:30; Stop 10/04/16 at 13:29; Status DC Fentanyl Citrate (Fentanyl 2ml Vial) 50 mcg PRN Q2HR PRN IV PAIN; Start at 13:30; Stop 10/04/16 at 10:36; Status DC Sodium Chloride 1,000 ml @ 100 mls/hr Q10H IV Last administered on 10/04/16 09:30; Start 10/03/16 at 13:30; Stop 10/04/16 at 13:29; Status DC Acetaminophen (Tylenol) 650 mg PRN Q4HRS PRN PO FEVER Last administered on 10/04 03:14; Start 10/03/16 at 13:30; Stop 10/04/16 at 13:29; Status DC Meclizine HCl (Antivert) 12.5 mg PRN Q6HRS PRN PO DIZZINESS Last administered on 10/04/16 03:16; Start 10/03/16 at 13:30 Diazepam (Valium) 2 mg PRN Q6HRS PRN IV DIZZINESS; Start 10/03/16 at 13:30 Aspirin (Children'S Aspirin) 81 mg DAILYWBKFT PO Last administered on 10:23; Start 10/04/16 at 10:15 Atorvastatin Calcium (Lipitor) 40 mg QHS PO ; Start 10/04/16 at 21:00 Diazepam (Valium) 5 mg PRN TID PRN PO MUSCLE SPASM; Start 10/04/16 at 10:30 Duloxetine HCl (Cymbalta) 30 mg DAILY PO Last administered on 10/04/16 10:35; Start 10/04/16 at 11:00 Ferrous Sulfate (Feosol) 325 mg DAILYWBKFT PO Last administered on 10/04/16 10 :35; Start 10/04/16 at 11:00 Lisinopril (Prinivil) 2.5 mg DAILY PO Last administered on 10/04/16 10:36; Start 10/04/16 at 11:00 Ondansetron HCl (Zofran Odt) 4 mg PRN BID PRN PO NAUSEA/VOMITING; Start at 10:30 Oxycodone/ Acetaminophen (Percocet 5/325) 1 tab PRN Q6HRS PRN PO PAIN Last administered on 10/04/16 10:35; Start 10/04/16 at 10:30 Sertraline HCl (Zoloft) 50 mg DAILY PO Last administered on 10/04/16 10:35; Start 10/04/16 at 11:00 Non-Formulary Medication 1 puff PRN Q6HRS PRN INH SHORTNESS OF BREATH; Start at 10:30; Status UNV Glyburide (Diabeta) 2.5 mg DAILY PO Last administered on 10/04/16 10:36; Start 10/04/16 at 11:00 Insulin Detemir (Levemir) 50 units QHS SQ ; Start 10/04/16 at 21:00 Pantoprazole Sodium (Protonix) 40 mg DAILYAC PO Last administered on 10/04/16 10:35; Start 10/04/16 at 11:00 Albuterol Sulfate (Ventolin Neb Soln) 2.5 mg PRN Q6HRS PRN NEB SHORTNESS OF BREATH; Start 10/04/16 at 10:30 Enoxaparin Sodium (Lovenox 40mg Syringe) 40 mg Q24H SQ Last administered on 10:44; Start 10/04/16 at 11:00 Active Scripts Active Valium (Diazepam) 5 Mg Tablet 5 Mg PO TID PRN Zofran Odt (Ondansetron) 4 Mg Tab.rapdis 4 Mg PO BID PRN Meclizine Hcl 25 Mg Tablet 1 Tab PO PRN TID PRN Benzonatate 200 Mg Capsule 1 Cap PO TID Prednisone 20 Mg Tablet 40 Mg PO DAILY 5 Days Proair Hfa Inhaler (Albuterol Sulfate) 8.5 Gm Hfa.aer.ad 1 Puff INH PRN Q6HRS PRN Meclizine Hcl 25 Mg Tablet 1 Tab PO TID Ibuprofen 600 Mg Tablet 600 Mg PO PRN Q6HRS PRN Percocet 5-325 Mg Tablet (Oxycodone/Acetaminophen) 1 Each Tablet 1 Tab PO PRN Q6HRS PRN Percocet 7.5-325 Mg Tablet (Oxycodone/Acetaminophen) 1 Each Tablet 1-2 Tab PO Q4 -6HRS PRN Iron Supplement (Ferrous Sulfate) 325 Mg Tablet 1 Tab PO DAILY Reported Lantus Solostar (Insulin Glargine,Hum.rec.anlog) 100 Unit/1 Ml Insuln.pen 50 Unit SQ QHS Lisinopril 2.5 Mg Tablet 1 Tab PO DAILY Novolog Flexpen (Insulin Aspart) 100 Unit/1 Ml Insuln.pen 12 Unit SQ TIDWMEALHC Daisy Solostar (Insulin Glargine,Hum.rec.anlog) 300 Unit/1 Ml Insuln.pen Unknown Dose SQ HS PRN Atorvastatin Calcium 40 Mg Tablet 40 Mg PO DAILY Zoloft (Sertraline Hcl) 50 Mg Tablet 50 Mg PO DAILY Omeprazole 40 Mg Capsule.dr 40 Mg PO DAILY Metformin Hcl 1,000 Mg Tablet 2,000 Mg PO DAILY Glyburide 2.5 Mg Tablet 2.5 Mg PO DAILY Cymbalta (Duloxetine Hcl) 30 Mg Capsule.dr 30 Mg PO DAILY Allergies Allergies: Coded Allergies: codeine (Verified Allergy, Intermediate, 03/05/16) Physical Exam Physical Exam REVIEW OF SYSTEMS: Otherwise, not [id number] review of systems. PHYSICAL EXAMINATION: General appearance is in acute distress. HEENT: Normocephalic and nontraumatic. Eyes, nose, ears, and throat are unremarkable. Neck is supple. No lymphadenopathy. No crepitus. Cardiovascular: S1, S2, regular rate and rhythm. Pulmonary: Clear to auscultation bilaterally. Abdomen: Bowel sounds are positive. Abdomen is soft, nontender, and nondistended. NEUROLOGICAL EXAMINATION: Alert Oriented to time, place and person. PERRL. EOMI. CN: no focal findings. Muscle tone: within normal. Muscle strength: 5 DTR: 2 Plantar reflex: Flexor response bilaterally Gait: not examined in bed. Sensory exam: no abnormal findings. No obvious cerebellar signs elicited. Vitals VITALS Vital Signs Date Time Temp Pulse Resp B/P (MAP) Pulse Ox O2 Delivery O2 Flow Rate FiO2 10/04/16 14:56 97.7 72 18 115/53 (73) 92 Room Air 97.7 Labs Labs Laboratory Tests Test 10/03/16 11:30 10/03/16 12:05 10/03/16 16:25 10/03/16 20:42 White Blood Count 6.7 x10^3/uL (4.0-11.0) Red Blood Count 5.07 x10^6/uL (3.50-5.40) Hemoglobin 12.3 g/dL (12.0-15.5) Hematocrit 39.0 % (36.0-47.0) Mean Corpuscular Volume 77 fL (79-100) Mean Corpuscular Hemoglobin 24 pg (25-35) Mean Corpuscular Hemoglobin Concent 32 g/dL (31-37) Red Cell Distribution Width 16.8 % (11.5-14.5) Platelet Count 198 x10^3/uL (140-400) Neutrophils (%) (Auto) 65 % (31-73) Lymphocytes (%) (Auto) 27 % (24-48) Monocytes (%) (Auto) 5 % (0-9) Eosinophils (%) (Auto) 2 % (0-3) Basophils (%) (Auto) 1 % (0-3) Neutrophils # (Auto) 4.3 x10^3uL (1.8-7.7) Lymphocytes # (Auto) 1.8 x10^3/uL (1.0-4.8) Monocytes # (Auto) 0.3 x10^3/uL (0.0-1.1) Eosinophils # (Auto) 0.1 x10^3/uL (0.0-0.7) Basophils # (Auto) 0.0 x10^3/uL (0.0-0.2) Prothrombin Time 13.4 SEC (11.7-14.0) Prothromb Time International Ratio 1.1 (0.8-1.1) Activated Partial Thromboplast Time 34 SEC (24-38) Sodium Level 135 mmol/L (136-145) Potassium Level 4.1 mmol/L (3.5-5.1) Chloride Level 98 mmol/L (98-107) Carbon Dioxide Level 28 mmol/L (21-32) Anion Gap 9 (6-14) Blood Urea Nitrogen 11 mg/dL (7-20) Creatinine 0.9 mg/dL (0.6-1.0) Estimated GFR (Cockcroft-Gault) 65.2 BUN/Creatinine Ratio 12 (6-20) Glucose Level 281 mg/dL (70-99) Calcium Level 9.1 mg/dL (8.5-10.1) Magnesium Level 1.3 mg/dL (1.8-2.4) Total Bilirubin 0.3 mg/dL (0.2-1.0) Aspartate Amino Transf (AST/SGOT) 60 U/L (15-37) Alanine Aminotransferase (ALT/SGPT) 62 U/L (14-59) Alkaline Phosphatase 129 U/L (46-116) Total Protein 8.7 g/dL (6.4-8.2) Albumin 3.5 g/dL (3.4-5.0) Albumin/Globulin Ratio 0.7 (1.0-1.7) Lipase 388 U/L (73-393) Urine Collection Type Void Urine Color Yellow Urine Clarity Turbid Urine pH 5.5 Urine Specific Juda 1.025 Urine Protein 30 mg/dL (NEG-TRACE) Urine Glucose (UA) >=1000 mg/dL (NEG) Urine Ketones (Stick) Negative mg/dL (NEG) Urine Blood Negative (NEG) Urine Nitrite Negative (NEG) Urine Bilirubin Negative (NEG) Urine Urobilinogen Dipstick 0.2 mg/dL (0.2 mg/dL) Urine Leukocyte Esterase Negative (NEG) Urine RBC 0 /HPF (0-2) Urine WBC 1-4 /HPF (0-4) Urine Squamous Epithelial Cells Mod /LPF Urine Bacteria Few /HPF (0-FEW) Urine Mucus Marked /LPF Glucose (Fingerstick) 149 mg/dL (70-99) 174 mg/dL (70-99) Test 10/04/16 03:30 10/04/16 07:33 10/04/16 16:31 White Blood Count 4.9 x10^3/uL (4.0-11.0) Red Blood Count 4.55 x10^6/uL (3.50-5.40) Hemoglobin 10.8 g/dL (12.0-15.5) Hematocrit 35.1 % (36.0-47.0) Mean Corpuscular Volume 77 fL (79-100) Mean Corpuscular Hemoglobin 24 pg (25-35) Mean Corpuscular Hemoglobin Concent 31 g/dL (31-37) Red Cell Distribution Width 16.7 % (11.5-14.5) Platelet Count 161 x10^3/uL (140-400) Neutrophils (%) (Auto) 54 % (31-73) Lymphocytes (%) (Auto) 37 % (24-48) Monocytes (%) (Auto) 6 % (0-9) Eosinophils (%) (Auto) 2 % (0-3) Basophils (%) (Auto) 1 % (0-3) Neutrophils # (Auto) 2.7 x10^3uL (1.8-7.7) Lymphocytes # (Auto) 1.8 x10^3/uL (1.0-4.8) Monocytes # (Auto) 0.3 x10^3/uL (0.0-1.1) Eosinophils # (Auto) 0.1 x10^3/uL (0.0-0.7) Basophils # (Auto) 0.0 x10^3/uL (0.0-0.2) Sodium Level 144 mmol/L (136-145) Potassium Level 4.4 mmol/L (3.5-5.1) Chloride Level 107 mmol/L (98-107) Carbon Dioxide Level 32 mmol/L (21-32) Anion Gap 5 (6-14) Blood Urea Nitrogen 8 mg/dL (7-20) Creatinine 0.7 mg/dL (0.6-1.0) Estimated GFR (Cockcroft-Gault) 87.2 Glucose Level 178 mg/dL (70-99) Calcium Level 8.4 mg/dL (8.5-10.1) Glucose (Fingerstick) 149 mg/dL (70-99) 172 mg/dL (70-99) Laboratory Tests Test 10/03/16 20:42 10/04/16 03:30 10/04/16 07:33 10/04/16 16:31 Glucose (Fingerstick) 174 mg/dL (70-99) 149 mg/dL (70-99) 172 mg/dL (70-99) White Blood Count 4.9 x10^3/uL (4.0-11.0) Red Blood Count 4.55 x10^6/uL (3.50-5.40) Hemoglobin 10.8 g/dL (12.0-15.5) Hematocrit 35.1 % (36.0-47.0) Mean Corpuscular Volume 77 fL (79-100) Mean Corpuscular Hemoglobin 24 pg (25-35) Mean Corpuscular Hemoglobin Concent 31 g/dL (31-37) Red Cell Distribution Width 16.7 % (11.5-14.5) Platelet Count 161 x10^3/uL (140-400) Neutrophils (%) (Auto) 54 % (31-73) Lymphocytes (%) (Auto) 37 % (24-48) Monocytes (%) (Auto) 6 % (0-9) Eosinophils (%) (Auto) 2 % (0-3) Basophils (%) (Auto) 1 % (0-3) Neutrophils # (Auto) 2.7 x10^3uL (1.8-7.7) Lymphocytes # (Auto) 1.8 x10^3/uL (1.0-4.8) Monocytes # (Auto) 0.3 x10^3/uL (0.0-1.1) Eosinophils # (Auto) 0.1 x10^3/uL (0.0-0.7) Basophils # (Auto) 0.0 x10^3/uL (0.0-0.2) Sodium Level 144 mmol/L (136-145) Potassium Level 4.4 mmol/L (3.5-5.1) Chloride Level 107 mmol/L (98-107) Carbon Dioxide Level 32 mmol/L (21-32) Anion Gap 5 (6-14) Blood Urea Nitrogen 8 mg/dL (7-20) Creatinine 0.7 mg/dL (0.6-1.0) Estimated GFR (Cockcroft-Gault) 87.2 Glucose Level 178 mg/dL (70-99) Calcium Level 8.4 mg/dL (8.5-10.1) Assessment/Plan Assessment/Plan This patient is 56-year-old woman who presented to emergency room with complaint of vertigo. Patient was recently evaluated for symptoms of vertigo patient reports last few months she is having problems with dizziness. She was having some worsening of symptoms in last few days. Patient currently has improvement in her symptoms. Patient will have more symptoms of vertigo, dizziness when she is trying to change her body position in bed or trying to get out of the bed quickly. Likely benign positional vertigo. MRI of the brain done did not show any acute intracranial process We'll treat symptomatically will use meclizine as needed We can also use low-dose Valium to help with symptoms. May benefit from vestibular rehabilitation. Patient also being evaluated for MRI C-spine with complaint of neck pain pending History of diabetes continue treat and monitor History of hypertension continue medication Anemia ENT evaluation Follow up with the neurology clinic. ANH GRACIA MD Oct 04, 2016 16:46
[2016-10-04 19:40] VITALS: BP 121/50
[2016-10-04] MEDS: ATORVASTATIN CALCIUM 40 MG TABLET. PO SCH (20:46)
[2016-10-04] MEDS: INSULIN DETEMIR 300 UNITS/3 ML INSULN.PEN. SQ SCH (20:52)
[2016-10-04] MEDS: diazePAM 5 MG TABLET PO PRN (23:07)
[2016-10-04 23:40] VITALS: BP 113/55
[2016-10-05 03:40] VITALS: BP 108/60
[2016-10-05] MEDS: oxyCODONE/APAP 5/325 1 TAB TABLET PO PRN ×3 (04:22→21:05)
[2016-10-05 05:58] LABS: BASO % 1 % (0-3); EOS % 3 % (0-3); HEMATOCRIT 34.3 % (36.0-47.0); HEMOGLOBIN 10.9 g/dL (12.0-15.5); LYMPH # 1.7 x10^3/uL (1.0-4.8); LYMPH % 38 % (24-48); MEAN CORPUSCULAR HEMOGLOBIN 24 pg (25-35); MEAN CORPUSCULAR HGB CONC 32 g/dL (31-37); MEAN CORPUSCULAR VOLUME 76 fL (79-100); MONO % 7 % (0-9); NEUT % 52 % (31-73); PLATELET COUNT 173 x10^3/uL (140-400); RED BLOOD COUNT 4.51 x10^6/uL (3.50-5.40); RED CELL DISTRIBUTION WIDTH 16.8 % (11.5-14.5); WHITE BLOOD COUNT 4.5 x10^3/uL (4.0-11.0)
[2016-10-05 06:24] LABS: ALBUMIN 2.9 g/dL (3.4-5.0); ALBUMIN/GLOBULIN RATIO 0.7 (1.0-1.7); CALCIUM 8.8 mg/dL (8.5-10.1); CREATININE 0.8 mg/dL (0.6-1.0); GFR 74.7; POTASSIUM 4.3 mmol/L (3.5-5.1); TOTAL BILIRUBIN 0.2 mg/dL (0.2-1.0); TOTAL PROTEIN 7.2 g/dL (6.4-8.2)
[2016-10-05 07:00] VITALS: BP 129/66
[2016-10-05] MEDS: ASPIRIN CHEWABLE 81 MG TABLET. PO SCH (08:07)
[2016-10-05] MEDS: LISINOPRIL 2.5 MG TABLET PO SCH (08:07)
[2016-10-05] MEDS: glyBURIDE 5 MG TABLET PO SCH (08:08)
[2016-10-05] MEDS: DULoxetine HCL 30 MG CAPSULE.DR PO SCH (08:08)
[2016-10-05] MEDS: SERTRALINE 50 MG TABLET. PO SCH (08:08)
[2016-10-05] MEDS: diazePAM 5 MG TABLET PO PRN (08:09)
[2016-10-05] MEDS: FERROUS SULFATE 325 MG TABLET. PO SCH (08:09)
[2016-10-05] MEDS: PANTOPRAZOLE 40 MG TABLET.DR. PO SCH (08:09)
[2016-10-05 10:47] VITALS: BP 119/62
[2016-10-05] MEDS: ENOXAPARIN 40 MG/0.4 ML SYRINGE. SQ SCH (11:47)
--- NOTE | 2016-10-05 13:38 | PDOC ---
PROGRESS NOTES Chief Complaint Chief Complaint Vertigo ASSESSMENT AND PLAN: 1. Vertigo: appreciate Dr Helm's input: BPV. treat sympromatically, consider vestibular rehab 2. Neck pain: new in past couple of days, worsening with pain when liftin R arm. eval with MRI (add on to brain scan); heat, pain meds for now. Dr Pierce consult 3. DM: on metformin, glyburide and insulin at home. hold metformin for now. add ISS. adequate control 4. HTN: well controlled on home meds 5. HLD: on statin 6. Chronic pain syndrome. continue home meds 7. Abn LFTs: chronic. previous viral hepatitis panel neg 8. Anemia: microcytic. by previous iron studies, due to combo of iron deficiency and chronic inflammation. on PO repletion 9. Prophylaxis: lovenox History of Present Illness History of Present Illness neck pain worse, overshadowing any other c/o. Vitals Vitals Vital Signs Date Time Temp Pulse Resp B/P (MAP) Pulse Ox O2 Delivery O2 Flow Rate FiO2 10/05/16 10:47 98.1 74 18 119/62 (81) 96 Room Air 98.1 Physical Exam General: Alert, Oriented X3, Cooperative, No acute distress Heart: Regular rate Lungs: Clear Abdomen: Normal bowel sounds, Soft, No tenderness Extremities: No edema Skin: No rashes Labs LABS Laboratory Tests Test 10/04/16 16:31 10/04/16 20:49 10/04/16 23:03 10/05/16 05:05 Glucose (Fingerstick) 172 mg/dL (70-99) 211 mg/dL (70-99) 250 mg/dL (70-99) White Blood Count 4.5 x10^3/uL (4.0-11.0) Red Blood Count 4.51 x10^6/uL (3.50-5.40) Hemoglobin 10.9 g/dL (12.0-15.5) Hematocrit 34.3 % (36.0-47.0) Mean Corpuscular Volume 76 fL (79-100) Mean Corpuscular Hemoglobin 24 pg (25-35) Mean Corpuscular Hemoglobin Concent 32 g/dL (31-37) Red Cell Distribution Width 16.8 % (11.5-14.5) Platelet Count 173 x10^3/uL (140-400) Neutrophils (%) (Auto) 52 % (31-73) Lymphocytes (%) (Auto) 38 % (24-48) Monocytes (%) (Auto) 7 % (0-9) Eosinophils (%) (Auto) 3 % (0-3) Basophils (%) (Auto) 1 % (0-3) Neutrophils # (Auto) 2.3 x10^3uL (1.8-7.7) Lymphocytes # (Auto) 1.7 x10^3/uL (1.0-4.8) Monocytes # (Auto) 0.3 x10^3/uL (0.0-1.1) Eosinophils # (Auto) 0.1 x10^3/uL (0.0-0.7) Basophils # (Auto) 0.0 x10^3/uL (0.0-0.2) Sodium Level 139 mmol/L (136-145) Potassium Level 4.3 mmol/L (3.5-5.1) Chloride Level 103 mmol/L (98-107) Carbon Dioxide Level 32 mmol/L (21-32) Anion Gap 4 (6-14) Blood Urea Nitrogen 10 mg/dL (7-20) Creatinine 0.8 mg/dL (0.6-1.0) Estimated GFR (Cockcroft-Gault) 74.7 BUN/Creatinine Ratio 13 (6-20) Glucose Level 195 mg/dL (70-99) Calcium Level 8.8 mg/dL (8.5-10.1) Total Bilirubin 0.2 mg/dL (0.2-1.0) Aspartate Amino Transf (AST/SGOT) 53 U/L (15-37) Alanine Aminotransferase (ALT/SGPT) 46 U/L (14-59) Alkaline Phosphatase 89 U/L (46-116) Total Protein 7.2 g/dL (6.4-8.2) Albumin 2.9 g/dL (3.4-5.0) Albumin/Globulin Ratio 0.7 (1.0-1.7) Test 10/05/16 07:59 10/05/16 11:54 Glucose (Fingerstick) 148 mg/dL (70-99) 216 mg/dL (70-99) BALJIT MOSS MD Oct 05, 2016 13:38
[2016-10-05 15:00] VITALS: BP 122/71
--- NOTE | 2016-10-05 17:14 | RAD ---
MR of the cervical spine, 10/04/2016: HISTORY: Head and neck pain radiating down right arm Imaging was performed in sagittal and axial planes utilizing T1 and T2 weighted sequences. The cervical vertebral heights are well maintained. There are mild scattered anterior and posterior spurs. No significant abnormality is identified at the C2-3, C3-4 or C4-5 disc levels. The central spinal canal and neural foramina are well maintained. At C5-6 there is a mild posterior disc bulge centered just to the left of midline. Thecal sac measures 9 mm in AP diameter at the midline. There is only minimal left foraminal narrowing. At C6-7 there is only minimal annular bulging at the midline. The thecal sac measures 9 mm in AP diameter. There is minimal left foraminal narrowing. No significant abnormality is identified at the C7-T1 level. The cervical cord demonstrates no intrinsic abnormality. IMPRESSION: Mild multilevel degenerative change with mild posterior disc bulges at C5-6 and C6-7 as described above. No high-grade central spinal or foraminal stenosis is evident. Electronically signed by: Melquiades Telles MD (10/05/2016 5:11 PM)
[2016-10-05] MEDS ORDERED: tiZANidine 4 MG TABLET. PO PRN (19:15)
[2016-10-05 19:45] VITALS: BP 114/58
--- NOTE | 2016-10-05 20:55 | PDOC ---
PROGRESS NOTES Assessment Problems Medical Problems: (1) Failure of outpatient treatment Status: Acute (2) Vertigo Status: Acute Problems: Plan This patient is 56-year-old woman who presented to emergency room with complaint of vertigo. Patient was recently evaluated for symptoms of vertigo patient reports last few months she is having problems with dizziness. She was having some worsening of symptoms in last few days. Patient currently has improvement in her symptoms. Patient will have more symptoms of vertigo, dizziness when she is trying to change her body position in bed or trying to get out of the bed quickly. Likely benign positional vertigo. MRI of the brain done did not show any acute intracranial process We'll treat symptomatically will use meclizine as needed We can also use low-dose Valium to help with symptoms. May benefit from vestibular rehabilitation. Patient also being evaluated for MRI C-spine with complaint of neck pain pending History of diabetes continue treat and monitor History of hypertension continue medication Anemia ENT evaluation Follow up with the neurology clinic. Objective Vital Signs Date Time Temp Pulse Resp B/P (MAP) Pulse Ox O2 Delivery O2 Flow Rate FiO2 10/05/16 20:00 Room Air 10/05/16 15:00 98.0 73 18 122/71 (88) 95 98.0 Intake and Output 10/05/16 07:00 Intake Total 800 ml Output Total 1750 ml Balance -950 ml Intake Oral 800 ml Output Urine Total 1750 ml PHYSICAL EXAM NEUROLOGICAL EXAMINATION: Alert Oriented to time, place and person. PERRL. EOMI. CN: no focal findings. Muscle tone: within normal. Muscle strength: 5 DTR: 2 Plantar reflex: Flexor response bilaterally Gait: not examined in bed. Sensory exam: no abnormal findings. No obvious cerebellar signs elicited. Review of Relevant I have reviewed the following items malorie (where applicable) has been applied. Labs Laboratory Tests Test 10/04/16 03:30 10/04/16 07:33 10/04/16 16:31 10/04/16 20:49 White Blood Count 4.9 x10^3/uL (4.0-11.0) Red Blood Count 4.55 x10^6/uL (3.50-5.40) Hemoglobin 10.8 g/dL (12.0-15.5) Hematocrit 35.1 % (36.0-47.0) Mean Corpuscular Volume 77 fL (79-100) Mean Corpuscular Hemoglobin 24 pg (25-35) Mean Corpuscular Hemoglobin Concent 31 g/dL (31-37) Red Cell Distribution Width 16.7 % (11.5-14.5) Platelet Count 161 x10^3/uL (140-400) Neutrophils (%) (Auto) 54 % (31-73) Lymphocytes (%) (Auto) 37 % (24-48) Monocytes (%) (Auto) 6 % (0-9) Eosinophils (%) (Auto) 2 % (0-3) Basophils (%) (Auto) 1 % (0-3) Neutrophils # (Auto) 2.7 x10^3uL (1.8-7.7) Lymphocytes # (Auto) 1.8 x10^3/uL (1.0-4.8) Monocytes # (Auto) 0.3 x10^3/uL (0.0-1.1) Eosinophils # (Auto) 0.1 x10^3/uL (0.0-0.7) Basophils # (Auto) 0.0 x10^3/uL (0.0-0.2) Sodium Level 144 mmol/L (136-145) Potassium Level 4.4 mmol/L (3.5-5.1) Chloride Level 107 mmol/L (98-107) Carbon Dioxide Level 32 mmol/L (21-32) Anion Gap 5 (6-14) Blood Urea Nitrogen 8 mg/dL (7-20) Creatinine 0.7 mg/dL (0.6-1.0) Estimated GFR (Cockcroft-Gault) 87.2 Glucose Level 178 mg/dL (70-99) Calcium Level 8.4 mg/dL (8.5-10.1) Glucose (Fingerstick) 149 mg/dL (70-99) 172 mg/dL (70-99) 211 mg/dL (70-99) Test 10/04/16 23:03 10/05/16 05:05 10/05/16 07:59 10/05/16 11:54 Glucose (Fingerstick) 250 mg/dL (70-99) 148 mg/dL (70-99) 216 mg/dL (70-99) White Blood Count 4.5 x10^3/uL (4.0-11.0) Red Blood Count 4.51 x10^6/uL (3.50-5.40) Hemoglobin 10.9 g/dL (12.0-15.5) Hematocrit 34.3 % (36.0-47.0) Mean Corpuscular Volume 76 fL (79-100) Mean Corpuscular Hemoglobin 24 pg (25-35) Mean Corpuscular Hemoglobin Concent 32 g/dL (31-37) Red Cell Distribution Width 16.8 % (11.5-14.5) Platelet Count 173 x10^3/uL (140-400) Neutrophils (%) (Auto) 52 % (31-73) Lymphocytes (%) (Auto) 38 % (24-48) Monocytes (%) (Auto) 7 % (0-9) Eosinophils (%) (Auto) 3 % (0-3) Basophils (%) (Auto) 1 % (0-3) Neutrophils # (Auto) 2.3 x10^3uL (1.8-7.7) Lymphocytes # (Auto) 1.7 x10^3/uL (1.0-4.8) Monocytes # (Auto) 0.3 x10^3/uL (0.0-1.1) Eosinophils # (Auto) 0.1 x10^3/uL (0.0-0.7) Basophils # (Auto) 0.0 x10^3/uL (0.0-0.2) Sodium Level 139 mmol/L (136-145) Potassium Level 4.3 mmol/L (3.5-5.1) Chloride Level 103 mmol/L (98-107) Carbon Dioxide Level 32 mmol/L (21-32) Anion Gap 4 (6-14) Blood Urea Nitrogen 10 mg/dL (7-20) Creatinine 0.8 mg/dL (0.6-1.0) Estimated GFR (Cockcroft-Gault) 74.7 BUN/Creatinine Ratio 13 (6-20) Glucose Level 195 mg/dL (70-99) Calcium Level 8.8 mg/dL (8.5-10.1) Total Bilirubin 0.2 mg/dL (0.2-1.0) Aspartate Amino Transf (AST/SGOT) 53 U/L (15-37) Alanine Aminotransferase (ALT/SGPT) 46 U/L (14-59) Alkaline Phosphatase 89 U/L (46-116) Total Protein 7.2 g/dL (6.4-8.2) Albumin 2.9 g/dL (3.4-5.0) Albumin/Globulin Ratio 0.7 (1.0-1.7) Test 10/05/16 16:32 Glucose (Fingerstick) 192 mg/dL (70-99) Laboratory Tests Test 10/04/16 23:03 10/05/16 05:05 10/05/16 07:59 10/05/16 11:54 Glucose (Fingerstick) 250 mg/dL (70-99) 148 mg/dL (70-99) 216 mg/dL (70-99) White Blood Count 4.5 x10^3/uL (4.0-11.0) Red Blood Count 4.51 x10^6/uL (3.50-5.40) Hemoglobin 10.9 g/dL (12.0-15.5) Hematocrit 34.3 % (36.0-47.0) Mean Corpuscular Volume 76 fL (79-100) Mean Corpuscular Hemoglobin 24 pg (25-35) Mean Corpuscular Hemoglobin Concent 32 g/dL (31-37) Red Cell Distribution Width 16.8 % (11.5-14.5) Platelet Count 173 x10^3/uL (140-400) Neutrophils (%) (Auto) 52 % (31-73) Lymphocytes (%) (Auto) 38 % (24-48) Monocytes (%) (Auto) 7 % (0-9) Eosinophils (%) (Auto) 3 % (0-3) Basophils (%) (Auto) 1 % (0-3) Neutrophils # (Auto) 2.3 x10^3uL (1.8-7.7) Lymphocytes # (Auto) 1.7 x10^3/uL (1.0-4.8) Monocytes # (Auto) 0.3 x10^3/uL (0.0-1.1) Eosinophils # (Auto) 0.1 x10^3/uL (0.0-0.7) Basophils # (Auto) 0.0 x10^3/uL (0.0-0.2) Sodium Level 139 mmol/L (136-145) Potassium Level 4.3 mmol/L (3.5-5.1) Chloride Level 103 mmol/L (98-107) Carbon Dioxide Level 32 mmol/L (21-32) Anion Gap 4 (6-14) Blood Urea Nitrogen 10 mg/dL (7-20) Creatinine 0.8 mg/dL (0.6-1.0) Estimated GFR (Cockcroft-Gault) 74.7 BUN/Creatinine Ratio 13 (6-20) Glucose Level 195 mg/dL (70-99) Calcium Level 8.8 mg/dL (8.5-10.1) Total Bilirubin 0.2 mg/dL (0.2-1.0) Aspartate Amino Transf (AST/SGOT) 53 U/L (15-37) Alanine Aminotransferase (ALT/SGPT) 46 U/L (14-59) Alkaline Phosphatase 89 U/L (46-116) Total Protein 7.2 g/dL (6.4-8.2) Albumin 2.9 g/dL (3.4-5.0) Albumin/Globulin Ratio 0.7 (1.0-1.7) Test 10/05/16 16:32 Glucose (Fingerstick) 192 mg/dL (70-99) Medications Current Medications Ondansetron HCl (Zofran) 4 mg 1X ONCE IV Last administered on 10/03/16 11:57; Start 10/03/16 at 11:30; Stop 10/03/16 at 11:31; Status DC Meclizine HCl (Antivert) 25 mg 1X ONCE PO Last administered on 10/03/16 11:57 ; Start 10/03/16 at 11:30; Stop 10/03/16 at 11:31; Status DC Sodium Chloride 1,000 ml @ 1,000 mls/hr Q1H IV Last administered on 10/03/16 12:03; Start 10/03/16 at 11:26; Stop 10/03/16 at 12:25; Status DC Diazepam (Valium) 2 mg 1X ONCE IV Last administered on 10/03/16 12:02; Start 10/03/16 at 11:30; Stop 10/03/16 at 11:31; Status DC Ondansetron HCl (Zofran) 4 mg PRN Q8HRS PRN IV NAUSEA/VOMITING; Start 10/03/16 at 13:30; Stop 10/04/16 at 13:29; Status DC Fentanyl Citrate (Fentanyl 2ml Vial) 50 mcg PRN Q2HR PRN IV PAIN; Start at 13:30; Stop 10/04/16 at 10:36; Status DC Sodium Chloride 1,000 ml @ 100 mls/hr Q10H IV Last administered on 10/04/16 09:30; Start 10/03/16 at 13:30; Stop 10/04/16 at 13:29; Status DC Acetaminophen (Tylenol) 650 mg PRN Q4HRS PRN PO FEVER Last administered on 10/04 03:14; Start 10/03/16 at 13:30; Stop 10/04/16 at 13:29; Status DC Meclizine HCl (Antivert) 12.5 mg PRN Q6HRS PRN PO DIZZINESS Last administered on 10/04/16 03:16; Start 10/03/16 at 13:30 Diazepam (Valium) 2 mg PRN Q6HRS PRN IV DIZZINESS; Start 10/03/16 at 13:30 Aspirin (Children'S Aspirin) 81 mg DAILYWBKFT PO Last administered on 08:07; Start 10/04/16 at 10:15 Atorvastatin Calcium (Lipitor) 40 mg QHS PO Last administered on 10/04/16 20: 46; Start 10/04/16 at 21:00 Diazepam (Valium) 5 mg PRN TID PRN PO MUSCLE SPASM Last administered on 08:09; Start 10/04/16 at 10:30 Duloxetine HCl (Cymbalta) 30 mg DAILY PO Last administered on 10/05/16 08:08; Start 10/04/16 at 11:00 Ferrous Sulfate (Feosol) 325 mg DAILYWBKFT PO Last administered on 10/05/16 08 :09; Start 10/04/16 at 11:00 Lisinopril (Prinivil) 2.5 mg DAILY PO Last administered on 10/05/16 08:07; Start 10/04/16 at 11:00 Ondansetron HCl (Zofran Odt) 4 mg PRN BID PRN PO NAUSEA/VOMITING; Start at 10:30 Oxycodone/ Acetaminophen (Percocet 5/325) 1 tab PRN Q6HRS PRN PO PAIN Last administered on 10/05/16 04:22; Start 10/04/16 at 10:30 Sertraline HCl (Zoloft) 50 mg DAILY PO Last administered on 10/05/16 08:08; Start 10/04/16 at 11:00 Non-Formulary Medication 1 puff PRN Q6HRS PRN INH SHORTNESS OF BREATH; Start at 10:30; Status UNV Glyburide (Diabeta) 2.5 mg DAILY PO Last administered on 10/05/16 08:08; Start 10/04/16 at 11:00 Insulin Detemir (Levemir) 50 units QHS SQ Last administered on 10/04/16 20:52 ; Start 10/04/16 at 21:00 Pantoprazole Sodium (Protonix) 40 mg DAILYAC PO Last administered on 10/05/16 08:09; Start 10/04/16 at 11:00 Albuterol Sulfate (Ventolin Neb Soln) 2.5 mg PRN Q6HRS PRN NEB SHORTNESS OF BREATH; Start 10/04/16 at 10:30 Enoxaparin Sodium (Lovenox 40mg Syringe) 40 mg Q24H SQ Last administered on 11:47; Start 10/04/16 at 11:00 Oxycodone/ Acetaminophen (Percocet 5/325) 2 tab PRN Q6HRS PRN PO PAIN Last administered on 10/05/16 15:06; Start 10/05/16 at 15:00 Tizanidine HCl (Zanaflex) 2 mg PRN Q12HR PRN PO MUSCLE SPASMS; Start 10/05/16 at 19:15 Active Scripts Active Valium (Diazepam) 5 Mg Tablet 5 Mg PO TID PRN Zofran Odt (Ondansetron) 4 Mg Tab.rapdis 4 Mg PO BID PRN Meclizine Hcl 25 Mg Tablet 1 Tab PO PRN TID PRN Benzonatate 200 Mg Capsule 1 Cap PO TID Prednisone 20 Mg Tablet 40 Mg PO DAILY 5 Days Proair Hfa Inhaler (Albuterol Sulfate) 8.5 Gm Hfa.aer.ad 1 Puff INH PRN Q6HRS PRN Meclizine Hcl 25 Mg Tablet 1 Tab PO TID Ibuprofen 600 Mg Tablet 600 Mg PO PRN Q6HRS PRN Percocet 5-325 Mg Tablet (Oxycodone/Acetaminophen) 1 Each Tablet 1 Tab PO PRN Q6HRS PRN Percocet 7.5-325 Mg Tablet (Oxycodone/Acetaminophen) 1 Each Tablet 1-2 Tab PO Q4 -6HRS PRN Iron Supplement (Ferrous Sulfate) 325 Mg Tablet 1 Tab PO DAILY Reported Lantus Solostar (Insulin Glargine,Hum.rec.anlog) 100 Unit/1 Ml Insuln.pen 50 Unit SQ QHS Lisinopril 2.5 Mg Tablet 1 Tab PO DAILY Novolog Flexpen (Insulin Aspart) 100 Unit/1 Ml Insuln.pen 12 Unit SQ TIDWMEALHC Toujeo Solostar (Insulin Glargine,Hum.rec.anlog) 300 Unit/1 Ml Insuln.pen Unknown Dose SQ HS PRN Atorvastatin Calcium 40 Mg Tablet 40 Mg PO DAILY Zoloft (Sertraline Hcl) 50 Mg Tablet 50 Mg PO DAILY Omeprazole 40 Mg Capsule.dr 40 Mg PO DAILY Metformin Hcl 1,000 Mg Tablet 2,000 Mg PO DAILY Glyburide 2.5 Mg Tablet 2.5 Mg PO DAILY Cymbalta (Duloxetine Hcl) 30 Mg Capsule.dr 30 Mg PO DAILY Vitals/I & O Vital Sign - Last 24 Hours 10/04/16 10/05/16 10/05/16 10/05/16 23:40 03:40 07:00 08:07 Temp 97.7 97.5 98.1 97.7 97.5 98.1 Pulse 67 68 67 67 Resp 20 20 18 B/P (MAP) 113/55 (74) 108/60 (76) 129/66 (87) 129/66 Pulse Ox 96 92 93 O2 Delivery Room Air Room Air Room Air 10/05/16 10/05/16 10/05/16 10/05/16 10:47 15:00 15:06 20:00 Temp 98.1 98.0 98.1 98.0 Pulse 74 73 Resp 18 18 B/P (MAP) 119/62 (81) 122/71 (88) Pulse Ox 96 95 O2 Delivery Room Air Room Air Room Air Room Air Intake and Output 10/04/16 10/04/1617 15:00 23:00 07:00 Intake Total 600 ml 200 ml Output Total 500 ml 1250 ml Balance 100 ml -1050 ml ANH GRACIA MD Oct 05, 2016 20:55
[2016-10-05] MEDS: ATORVASTATIN CALCIUM 40 MG TABLET. PO SCH (21:04)
[2016-10-05] MEDS: INSULIN DETEMIR 300 UNITS/3 ML INSULN.PEN. SQ SCH (21:08)
[2016-10-05 23:50] VITALS: BP 135/59
[2016-10-06 03:50] VITALS: BP 110/45
[2016-10-06 04:00] LABS: BASO % 1 % (0-3); EOS % 3 % (0-3); HEMATOCRIT 34.5 % (36.0-47.0); HEMOGLOBIN 10.9 g/dL (12.0-15.5); LYMPH # 1.5 x10^3/uL (1.0-4.8); LYMPH % 34 % (24-48); MEAN CORPUSCULAR HEMOGLOBIN 25 pg (25-35); MEAN CORPUSCULAR HGB CONC 32 g/dL (31-37); MEAN CORPUSCULAR VOLUME 77 fL (79-100); MONO % 7 % (0-9); NEUT % 56 % (31-73); PLATELET COUNT 162 x10^3/uL (140-400); RED BLOOD COUNT 4.46 x10^6/uL (3.50-5.40); RED CELL DISTRIBUTION WIDTH 16.9 % (11.5-14.5); WHITE BLOOD COUNT 4.4 x10^3/uL (4.0-11.0)
[2016-10-06 05:01] LABS: ALBUMIN/GLOBULIN RATIO 0.7 (1.0-1.7); CALCIUM 8.9 mg/dL (8.5-10.1); CREATININE 0.9 mg/dL (0.6-1.0); GFR 65.2; POTASSIUM 4.3 mmol/L (3.5-5.1); TOTAL BILIRUBIN 0.2 mg/dL (0.2-1.0); TOTAL PROTEIN 7.6 g/dL (6.4-8.2)
[2016-10-06 07:15] VITALS: BP 113/69
[2016-10-06] MEDS: oxyCODONE/APAP 5/325 1 TAB TABLET PO PRN ×2 (07:52→20:26)
[2016-10-06] MEDS: ASPIRIN CHEWABLE 81 MG TABLET. PO SCH (07:54)
[2016-10-06] MEDS: LISINOPRIL 2.5 MG TABLET PO SCH (07:54)
[2016-10-06] MEDS: DULoxetine HCL 30 MG CAPSULE.DR PO SCH (07:54)
[2016-10-06] MEDS: FERROUS SULFATE 325 MG TABLET. PO SCH (07:54)
[2016-10-06] MEDS: PANTOPRAZOLE 40 MG TABLET.DR. PO SCH (07:54)
[2016-10-06] MEDS: SERTRALINE 50 MG TABLET. PO SCH (07:54)
[2016-10-06] MEDS: glyBURIDE 5 MG TABLET PO SCH (07:55)
[2016-10-06] MEDS: NAPROXEN 500 MG TABLET PO SCH ×2 (10:33→17:18)
[2016-10-06] MEDS: ENOXAPARIN 40 MG/0.4 ML SYRINGE. SQ SCH (10:34)
[2016-10-06] MEDS: MECLIZINE HCL 12.5 MG TABLET. PO PRN (10:35)
[2016-10-06 10:49] VITALS: BP 129/53
[2016-10-06 14:37] VITALS: BP 122/53
--- NOTE | 2016-10-06 14:59 | PDOC ---
PROGRESS NOTES Chief Complaint Chief Complaint Vertigo 1. Vertigo: BPV. treat symptoms 2. Neck pain: new, MRI ok Dr Pierce consult 3. DM2: hold metformin for now. adequate control 4. HTN: well controlled on home meds 5. HLD: on statin 6. Chronic pain syndrome. continue home meds 7. Abn LFTs: chronic 8. Anemia: microcytic. History of Present Illness History of Present Illness neck pain worse, try lidoderm patch try wean off percocets Vitals Vitals Vital Signs Date Time Temp Pulse Resp B/P (MAP) Pulse Ox O2 Delivery O2 Flow Rate FiO2 10/06/16 14:37 97.9 71 19 122/53 (76) 96 Room Air 97.9 Physical Exam General: Alert, Oriented X3, Cooperative, No acute distress Heart: Regular rate Lungs: Clear Abdomen: Normal bowel sounds, Soft, No tenderness Extremities: No edema Skin: No rashes Labs LABS Laboratory Tests Test 10/05/16 16:32 10/05/16 21:04 10/06/16 03:20 10/06/16 07:14 Glucose (Fingerstick) 192 mg/dL (70-99) 262 mg/dL (70-99) 213 mg/dL (70-99) White Blood Count 4.4 x10^3/uL (4.0-11.0) Red Blood Count 4.46 x10^6/uL (3.50-5.40) Hemoglobin 10.9 g/dL (12.0-15.5) Hematocrit 34.5 % (36.0-47.0) Mean Corpuscular Volume 77 fL (79-100) Mean Corpuscular Hemoglobin 25 pg (25-35) Mean Corpuscular Hemoglobin Concent 32 g/dL (31-37) Red Cell Distribution Width 16.9 % (11.5-14.5) Platelet Count 162 x10^3/uL (140-400) Neutrophils (%) (Auto) 56 % (31-73) Lymphocytes (%) (Auto) 34 % (24-48) Monocytes (%) (Auto) 7 % (0-9) Eosinophils (%) (Auto) 3 % (0-3) Basophils (%) (Auto) 1 % (0-3) Neutrophils # (Auto) 2.4 x10^3uL (1.8-7.7) Lymphocytes # (Auto) 1.5 x10^3/uL (1.0-4.8) Monocytes # (Auto) 0.3 x10^3/uL (0.0-1.1) Eosinophils # (Auto) 0.1 x10^3/uL (0.0-0.7) Basophils # (Auto) 0.0 x10^3/uL (0.0-0.2) Sodium Level 139 mmol/L (136-145) Potassium Level 4.3 mmol/L (3.5-5.1) Chloride Level 102 mmol/L (98-107) Carbon Dioxide Level 32 mmol/L (21-32) Anion Gap 5 (6-14) Blood Urea Nitrogen 9 mg/dL (7-20) Creatinine 0.9 mg/dL (0.6-1.0) Estimated GFR (Cockcroft-Gault) 65.2 BUN/Creatinine Ratio 10 (6-20) Glucose Level 281 mg/dL (70-99) Calcium Level 8.9 mg/dL (8.5-10.1) Total Bilirubin 0.2 mg/dL (0.2-1.0) Aspartate Amino Transf (AST/SGOT) 43 U/L (15-37) Alanine Aminotransferase (ALT/SGPT) 47 U/L (14-59) Alkaline Phosphatase 105 U/L (46-116) Total Protein 7.6 g/dL (6.4-8.2) Albumin 3.0 g/dL (3.4-5.0) Albumin/Globulin Ratio 0.7 (1.0-1.7) Assessment and Plan Assessmemt and Plan Problems Medical Problems: (1) Failure of outpatient treatment Status: Acute (2) Vertigo Status: Acute Problems: Comment Review of Relevant I have reviewed the following items malorie (where applicable) has been applied. Labs Laboratory Tests Test 10/04/16 16:31 10/04/16 20:49 10/04/16 23:03 10/05/16 05:05 Glucose (Fingerstick) 172 mg/dL (70-99) 211 mg/dL (70-99) 250 mg/dL (70-99) White Blood Count 4.5 x10^3/uL (4.0-11.0) Red Blood Count 4.51 x10^6/uL (3.50-5.40) Hemoglobin 10.9 g/dL (12.0-15.5) Hematocrit 34.3 % (36.0-47.0) Mean Corpuscular Volume 76 fL (79-100) Mean Corpuscular Hemoglobin 24 pg (25-35) Mean Corpuscular Hemoglobin Concent 32 g/dL (31-37) Red Cell Distribution Width 16.8 % (11.5-14.5) Platelet Count 173 x10^3/uL (140-400) Neutrophils (%) (Auto) 52 % (31-73) Lymphocytes (%) (Auto) 38 % (24-48) Monocytes (%) (Auto) 7 % (0-9) Eosinophils (%) (Auto) 3 % (0-3) Basophils (%) (Auto) 1 % (0-3) Neutrophils # (Auto) 2.3 x10^3uL (1.8-7.7) Lymphocytes # (Auto) 1.7 x10^3/uL (1.0-4.8) Monocytes # (Auto) 0.3 x10^3/uL (0.0-1.1) Eosinophils # (Auto) 0.1 x10^3/uL (0.0-0.7) Basophils # (Auto) 0.0 x10^3/uL (0.0-0.2) Sodium Level 139 mmol/L (136-145) Potassium Level 4.3 mmol/L (3.5-5.1) Chloride Level 103 mmol/L (98-107) Carbon Dioxide Level 32 mmol/L (21-32) Anion Gap 4 (6-14) Blood Urea Nitrogen 10 mg/dL (7-20) Creatinine 0.8 mg/dL (0.6-1.0) Estimated GFR (Cockcroft-Gault) 74.7 BUN/Creatinine Ratio 13 (6-20) Glucose Level 195 mg/dL (70-99) Calcium Level 8.8 mg/dL (8.5-10.1) Total Bilirubin 0.2 mg/dL (0.2-1.0) Aspartate Amino Transf (AST/SGOT) 53 U/L (15-37) Alanine Aminotransferase (ALT/SGPT) 46 U/L (14-59) Alkaline Phosphatase 89 U/L (46-116) Total Protein 7.2 g/dL (6.4-8.2) Albumin 2.9 g/dL (3.4-5.0) Albumin/Globulin Ratio 0.7 (1.0-1.7) Test 10/05/16 07:59 10/05/16 11:54 10/05/16 16:32 10/05/16 21:04 Glucose (Fingerstick) 148 mg/dL (70-99) 216 mg/dL (70-99) 192 mg/dL (70-99) 262 mg/dL (70-99) Test 10/06/16 03:20 10/06/16 07:14 White Blood Count 4.4 x10^3/uL (4.0-11.0) Red Blood Count 4.46 x10^6/uL (3.50-5.40) Hemoglobin 10.9 g/dL (12.0-15.5) Hematocrit 34.5 % (36.0-47.0) Mean Corpuscular Volume 77 fL (79-100) Mean Corpuscular Hemoglobin 25 pg (25-35) Mean Corpuscular Hemoglobin Concent 32 g/dL (31-37) Red Cell Distribution Width 16.9 % (11.5-14.5) Platelet Count 162 x10^3/uL (140-400) Neutrophils (%) (Auto) 56 % (31-73) Lymphocytes (%) (Auto) 34 % (24-48) Monocytes (%) (Auto) 7 % (0-9) Eosinophils (%) (Auto) 3 % (0-3) Basophils (%) (Auto) 1 % (0-3) Neutrophils # (Auto) 2.4 x10^3uL (1.8-7.7) Lymphocytes # (Auto) 1.5 x10^3/uL (1.0-4.8) Monocytes # (Auto) 0.3 x10^3/uL (0.0-1.1) Eosinophils # (Auto) 0.1 x10^3/uL (0.0-0.7) Basophils # (Auto) 0.0 x10^3/uL (0.0-0.2) Sodium Level 139 mmol/L (136-145) Potassium Level 4.3 mmol/L (3.5-5.1) Chloride Level 102 mmol/L (98-107) Carbon Dioxide Level 32 mmol/L (21-32) Anion Gap 5 (6-14) Blood Urea Nitrogen 9 mg/dL (7-20) Creatinine 0.9 mg/dL (0.6-1.0) Estimated GFR (Cockcroft-Gault) 65.2 BUN/Creatinine Ratio 10 (6-20) Glucose Level 281 mg/dL (70-99) Calcium Level 8.9 mg/dL (8.5-10.1) Total Bilirubin 0.2 mg/dL (0.2-1.0) Aspartate Amino Transf (AST/SGOT) 43 U/L (15-37) Alanine Aminotransferase (ALT/SGPT) 47 U/L (14-59) Alkaline Phosphatase 105 U/L (46-116) Total Protein 7.6 g/dL (6.4-8.2) Albumin 3.0 g/dL (3.4-5.0) Albumin/Globulin Ratio 0.7 (1.0-1.7) Glucose (Fingerstick) 213 mg/dL (70-99) Laboratory Tests Test 10/05/16 16:32 10/05/16 21:04 10/06/16 03:20 10/06/16 07:14 Glucose (Fingerstick) 192 mg/dL (70-99) 262 mg/dL (70-99) 213 mg/dL (70-99) White Blood Count 4.4 x10^3/uL (4.0-11.0) Red Blood Count 4.46 x10^6/uL (3.50-5.40) Hemoglobin 10.9 g/dL (12.0-15.5) Hematocrit 34.5 % (36.0-47.0) Mean Corpuscular Volume 77 fL (79-100) Mean Corpuscular Hemoglobin 25 pg (25-35) Mean Corpuscular Hemoglobin Concent 32 g/dL (31-37) Red Cell Distribution Width 16.9 % (11.5-14.5) Platelet Count 162 x10^3/uL (140-400) Neutrophils (%) (Auto) 56 % (31-73) Lymphocytes (%) (Auto) 34 % (24-48) Monocytes (%) (Auto) 7 % (0-9) Eosinophils (%) (Auto) 3 % (0-3) Basophils (%) (Auto) 1 % (0-3) Neutrophils # (Auto) 2.4 x10^3uL (1.8-7.7) Lymphocytes # (Auto) 1.5 x10^3/uL (1.0-4.8) Monocytes # (Auto) 0.3 x10^3/uL (0.0-1.1) Eosinophils # (Auto) 0.1 x10^3/uL (0.0-0.7) Basophils # (Auto) 0.0 x10^3/uL (0.0-0.2) Sodium Level 139 mmol/L (136-145) Potassium Level 4.3 mmol/L (3.5-5.1) Chloride Level 102 mmol/L (98-107) Carbon Dioxide Level 32 mmol/L (21-32) Anion Gap 5 (6-14) Blood Urea Nitrogen 9 mg/dL (7-20) Creatinine 0.9 mg/dL (0.6-1.0) Estimated GFR (Cockcroft-Gault) 65.2 BUN/Creatinine Ratio 10 (6-20) Glucose Level 281 mg/dL (70-99) Calcium Level 8.9 mg/dL (8.5-10.1) Total Bilirubin 0.2 mg/dL (0.2-1.0) Aspartate Amino Transf (AST/SGOT) 43 U/L (15-37) Alanine Aminotransferase (ALT/SGPT) 47 U/L (14-59) Alkaline Phosphatase 105 U/L (46-116) Total Protein 7.6 g/dL (6.4-8.2) Albumin 3.0 g/dL (3.4-5.0) Albumin/Globulin Ratio 0.7 (1.0-1.7) Medications Current Medications Ondansetron HCl (Zofran) 4 mg 1X ONCE IV Last administered on 10/03/16 11:57; Start 10/03/16 at 11:30; Stop 10/03/16 at 11:31; Status DC Meclizine HCl (Antivert) 25 mg 1X ONCE PO Last administered on 10/03/16 11:57 ; Start 10/03/16 at 11:30; Stop 10/03/16 at 11:31; Status DC Sodium Chloride 1,000 ml @ 1,000 mls/hr Q1H IV Last administered on 10/03/16 12:03; Start 10/03/16 at 11:26; Stop 10/03/16 at 12:25; Status DC Diazepam (Valium) 2 mg 1X ONCE IV Last administered on 10/03/16 12:02; Start 10/03/16 at 11:30; Stop 10/03/16 at 11:31; Status DC Ondansetron HCl (Zofran) 4 mg PRN Q8HRS PRN IV NAUSEA/VOMITING; Start 10/03/16 at 13:30; Stop 10/04/16 at 13:29; Status DC Fentanyl Citrate (Fentanyl 2ml Vial) 50 mcg PRN Q2HR PRN IV PAIN; Start at 13:30; Stop 10/04/16 at 10:36; Status DC Sodium Chloride 1,000 ml @ 100 mls/hr Q10H IV Last administered on 10/04/16 09:30; Start 10/03/16 at 13:30; Stop 10/04/16 at 13:29; Status DC Acetaminophen (Tylenol) 650 mg PRN Q4HRS PRN PO FEVER Last administered on 10/04 03:14; Start 10/03/16 at 13:30; Stop 10/04/16 at 13:29; Status DC Meclizine HCl (Antivert) 12.5 mg PRN Q6HRS PRN PO DIZZINESS Last administered on 10/06/16 10:35; Start 10/03/16 at 13:30 Diazepam (Valium) 2 mg PRN Q6HRS PRN IV DIZZINESS; Start 10/03/16 at 13:30 Aspirin (Children'S Aspirin) 81 mg DAILYWBKFT PO Last administered on 07:54; Start 10/04/16 at 10:15 Atorvastatin Calcium (Lipitor) 40 mg QHS PO Last administered on 10/05/16 21: 04; Start 10/04/16 at 21:00 Diazepam (Valium) 5 mg PRN TID PRN PO MUSCLE SPASM Last administered on 08:09; Start 10/04/16 at 10:30 Duloxetine HCl (Cymbalta) 30 mg DAILY PO Last administered on 10/06/16 07:54; Start 10/04/16 at 11:00 Ferrous Sulfate (Feosol) 325 mg DAILYWBKFT PO Last administered on 10/06/16 07 :54; Start 10/04/16 at 11:00 Lisinopril (Prinivil) 2.5 mg DAILY PO Last administered on 10/06/16 07:54; Start 10/04/16 at 11:00 Ondansetron HCl (Zofran Odt) 4 mg PRN BID PRN PO NAUSEA/VOMITING; Start at 10:30 Oxycodone/ Acetaminophen (Percocet 5/325) 1 tab PRN Q6HRS PRN PO PAIN Last administered on 10/05/16 04:22; Start 10/04/16 at 10:30 Sertraline HCl (Zoloft) 50 mg DAILY PO Last administered on 10/06/16 07:54; Start 10/04/16 at 11:00 Non-Formulary Medication 1 puff PRN Q6HRS PRN INH SHORTNESS OF BREATH; Start at 10:30; Status UNV Glyburide (Diabeta) 2.5 mg DAILY PO Last administered on 10/06/16 07:55; Start 10/04/16 at 11:00 Insulin Detemir (Levemir) 50 units QHS SQ Last administered on 10/05/16 21:08 ; Start 10/04/16 at 21:00 Pantoprazole Sodium (Protonix) 40 mg DAILYAC PO Last administered on 10/06/16 07:54; Start 10/04/16 at 11:00 Albuterol Sulfate (Ventolin Neb Soln) 2.5 mg PRN Q6HRS PRN NEB SHORTNESS OF BREATH; Start 10/04/16 at 10:30 Enoxaparin Sodium (Lovenox 40mg Syringe) 40 mg Q24H SQ Last administered on 10:34; Start 10/04/16 at 11:00 Oxycodone/ Acetaminophen (Percocet 5/325) 2 tab PRN Q6HRS PRN PO PAIN Last administered on 10/06/16 07:52; Start 10/05/16 at 15:00 Tizanidine HCl (Zanaflex) 2 mg PRN Q12HR PRN PO MUSCLE SPASMS Last administered on 10/05/16 21:04; Start 10/05/16 at 19:15 Naproxen (Naprosyn) 500 mg BIDWMEALS PO Last administered on 10/06/16 10:33; Start 10/06/16 at 10:00 Lidocaine (Lidoderm) 1 patch DAILY TD ; Start 10/06/16 at 15:00 Active Scripts Active Valium (Diazepam) 5 Mg Tablet 5 Mg PO TID PRN Zofran Odt (Ondansetron) 4 Mg Tab.rapdis 4 Mg PO BID PRN Meclizine Hcl 25 Mg Tablet 1 Tab PO PRN TID PRN Benzonatate 200 Mg Capsule 1 Cap PO TID Prednisone 20 Mg Tablet 40 Mg PO DAILY 5 Days Proair Hfa Inhaler (Albuterol Sulfate) 8.5 Gm Hfa.aer.ad 1 Puff INH PRN Q6HRS PRN Meclizine Hcl 25 Mg Tablet 1 Tab PO TID Ibuprofen 600 Mg Tablet 600 Mg PO PRN Q6HRS PRN Percocet 5-325 Mg Tablet (Oxycodone/Acetaminophen) 1 Each Tablet 1 Tab PO PRN Q6HRS PRN Percocet 7.5-325 Mg Tablet (Oxycodone/Acetaminophen) 1 Each Tablet 1-2 Tab PO Q4 -6HRS PRN Iron Supplement (Ferrous Sulfate) 325 Mg Tablet 1 Tab PO DAILY Reported Lantus Solostar (Insulin Glargine,Hum.rec.anlog) 100 Unit/1 Ml Insuln.pen 50 Unit SQ QHS Lisinopril 2.5 Mg Tablet 1 Tab PO DAILY Novolog Flexpen (Insulin Aspart) 100 Unit/1 Ml Insuln.pen 12 Unit SQ TIDWMEALHC Toujeo Solostar (Insulin Glargine,Hum.rec.anlog) 300 Unit/1 Ml Insuln.pen Unknown Dose SQ HS PRN Atorvastatin Calcium 40 Mg Tablet 40 Mg PO DAILY Zoloft (Sertraline Hcl) 50 Mg Tablet 50 Mg PO DAILY Omeprazole 40 Mg Capsule.dr 40 Mg PO DAILY Metformin Hcl 1,000 Mg Tablet 2,000 Mg PO DAILY Glyburide 2.5 Mg Tablet 2.5 Mg PO DAILY Cymbalta (Duloxetine Hcl) 30 Mg Capsule.dr 30 Mg PO DAILY Vitals/I & O Vital Sign - Last 24 Hours 10/05/16 10/05/16 10/05/16 10/05/16 15:00 15:06 19:45 20:00 Temp 98.0 98.0 98.0 98.0 Pulse 73 72 Resp 18 20 B/P (MAP) 122/71 (88) 114/58 (76) Pulse Ox 95 96 O2 Delivery Room Air Room Air Room Air Room Air 10/05/16 10/05/16 10/05/16 10/06/16 21:05 22:00 23:50 03:50 Temp 97.8 97.6 97.8 97.6 Pulse 71 69 Resp 16 19 20 20 B/P (MAP) 135/59 (84) 110/45 (66) Pulse Ox 96 92 93 O2 Delivery Room Air Room Air Room Air 10/06/16 10/06/16 10/06/16 10/06/16 07:15 07:52 07:54 08:00 Temp 97.5 97.5 Pulse 69 69 Resp 17 B/P (MAP) 113/69 (84) 113/69 Pulse Ox 93 93 O2 Delivery Room Air Room Air Room Air 10/06/16 10/06/16 10/06/16 09:20 10:49 14:37 Temp 97.8 97.9 97.8 97.9 Pulse 73 71 Resp 19 19 B/P (MAP) 129/53 (78) 122/53 (76) Pulse Ox 93 93 96 O2 Delivery Room Air Room Air Room Air Intake and Output 10/05/16 10/05/16 10/06/16 14:59 22:59 06:59 Intake Total 600 ml 200 ml Output Total 500 ml 0 ml Balance 100 ml 200 ml BRUNO MARTEL MD Oct 06, 2016 14:59
--- NOTE | 2016-10-06 18:01 | PDOC ---
PROGRESS NOTES Assessment Assessment IMPRESSION: Vertigo. DM HLD Peripheral neuropathy. No evidence of acute CVA this time. RECOMMENDATIONS/PLAN: Continue ASA daily. Continue Lipitor HS. Treat medical diseases. FU with PCP. SUBJECTIVE: Stating better on 10/06/16. OBJECTIVE: No focalized neurological deficits. PAST MEDICAL HISTORY: Pneumonia, sepsis, right shoulder fracture, bronchitis, diabetes, breast cancer with double mastectomy, hysterectomy. ALLERGIES: NKDA FAMILY HISTORY: Breast cancer. SOCIAL HISTORY: Denies drink, smoke or illicit drugs. MEDICATIONS: Refer to MAR REVIEW OF SYSTEMS: Constitutional: No malnutrition, weight loss, cachexia. Head: No traumatic brain or head injury. Skin: No edema, or rash. Ear: No infection, tinnitus. Eyes: No vision loss, or diplopia. Nose: No bleeding or purulent discharges. Hearing: No hearing decrease. Neck: No injury. Cardiac: HLD Pulmonary: No CPOD. GI: No GI Ulcer, GI bleeding Urinary/genital: UTI. Endocrine: Diabetes Mellitus. Skeletomuscular: No muscular atrophy, deformity Neurological: see HP. Psychiatric: Denies drug use/abuse. Otherwise, not [id number] review of systems. PHYSICAL EXAMINATION: General appearance in no acute distress. HEENT: Normocephalic and nontraumatic. Eyes, nose, ears, and throat are unremarkable. Hearing decrease. Neck is supple. No lymphadenopathy. No Crepitus. Cardiovascular: S1, S2, regular rate and rhythm. Pulmonary: Clear to auscultation bilaterally. Abdomen: Bowel sounds are positive. Abdomen is soft, nontender, and nondistended. Extremities: No rash, lesions, or edema. No restriction of range of motion NEUROLOGICAL EXAMINATION: Alert. Oriented to time, place and person. PERRL. EOMI. CN: no focal findings. Muscle tone: within normal. Muscle strength: 5 DTR: 2 Plantar reflex: Flexor response bilaterally Gait: not examined in bed. Sensory exam: no abnormal findings. No cerebellar signs elicited. F-T-N test accurate. Objective Objective Vital Signs Date Time Temp Pulse Resp B/P (MAP) Pulse Ox O2 Delivery O2 Flow Rate FiO2 10/06/16 14:37 97.9 71 19 122/53 (76) 96 Room Air 97.9 Intake and Output 10/06/16 07:00 Intake Total 800 ml Output Total 500 ml Balance 300 ml Intake Oral 800 ml Output Urine Total 500 ml Vitals Signs Vitals VS - Last 72 Hours, by Label Date Time Temp Pulse Resp B/P (MAP) Pulse Ox O2 Delivery O2 Flow Rate FiO2 10/06/16 14:37 97.9 71 19 122/53 (76) 96 Room Air 97.9 10/06/16 10:49 97.8 73 19 129/53 (78) 93 Room Air 97.8 10/06/16 09:20 93 Room Air 10/06/16 08:00 Room Air 10/06/16 07:54 69 113/69 10/06/16 07:52 93 Room Air 10/06/16 07:15 97.5 69 17 113/69 (84) 93 Room Air 97.5 10/06/16 03:50 97.6 69 20 110/45 (66) 93 Room Air 97.6 10/05/16 23:50 97.8 71 20 135/59 (84) 92 Room Air 97.8 10/05/16 22:00 19 10/05/16 21:05 16 96 Room Air 10/05/16 20:00 Room Air 10/05/16 19:45 98.0 72 20 114/58 (76) 96 Room Air 98.0 10/05/16 15:06 Room Air 10/05/16 15:00 98.0 73 18 122/71 (88) 95 Room Air 98.0 10/05/16 10:47 98.1 74 18 119/62 (81) 96 Room Air 98.1 10/05/16 08:07 67 129/66 10/05/16 07:00 98.1 67 18 129/66 (87) 93 Room Air 98.1 Laboratory Laboratory Laboratory Tests Test 10/05/16 21:04 10/06/16 03:20 10/06/16 07:14 Glucose (Fingerstick) 262 mg/dL (70-99) 213 mg/dL (70-99) White Blood Count 4.4 x10^3/uL (4.0-11.0) Red Blood Count 4.46 x10^6/uL (3.50-5.40) Hemoglobin 10.9 g/dL (12.0-15.5) Hematocrit 34.5 % (36.0-47.0) Mean Corpuscular Volume 77 fL (79-100) Mean Corpuscular Hemoglobin 25 pg (25-35) Mean Corpuscular Hemoglobin Concent 32 g/dL (31-37) Red Cell Distribution Width 16.9 % (11.5-14.5) Platelet Count 162 x10^3/uL (140-400) Neutrophils (%) (Auto) 56 % (31-73) Lymphocytes (%) (Auto) 34 % (24-48) Monocytes (%) (Auto) 7 % (0-9) Eosinophils (%) (Auto) 3 % (0-3) Basophils (%) (Auto) 1 % (0-3) Neutrophils # (Auto) 2.4 x10^3uL (1.8-7.7) Lymphocytes # (Auto) 1.5 x10^3/uL (1.0-4.8) Monocytes # (Auto) 0.3 x10^3/uL (0.0-1.1) Eosinophils # (Auto) 0.1 x10^3/uL (0.0-0.7) Basophils # (Auto) 0.0 x10^3/uL (0.0-0.2) Sodium Level 139 mmol/L (136-145) Potassium Level 4.3 mmol/L (3.5-5.1) Chloride Level 102 mmol/L (98-107) Carbon Dioxide Level 32 mmol/L (21-32) Anion Gap 5 (6-14) Blood Urea Nitrogen 9 mg/dL (7-20) Creatinine 0.9 mg/dL (0.6-1.0) Estimated GFR (Cockcroft-Gault) 65.2 BUN/Creatinine Ratio 10 (6-20) Glucose Level 281 mg/dL (70-99) Calcium Level 8.9 mg/dL (8.5-10.1) Total Bilirubin 0.2 mg/dL (0.2-1.0) Aspartate Amino Transf (AST/SGOT) 43 U/L (15-37) Alanine Aminotransferase (ALT/SGPT) 47 U/L (14-59) Alkaline Phosphatase 105 U/L (46-116) Total Protein 7.6 g/dL (6.4-8.2) Albumin 3.0 g/dL (3.4-5.0) Albumin/Globulin Ratio 0.7 (1.0-1.7) Medication Medications Current Medications Lidocaine (Lidoderm) 1 patch DAILY TD ; Start 10/06/16 at 15:00 Naproxen (Naprosyn) 500 mg BIDWMEALS PO Last administered on 10/06/16 17:18; Start 10/06/16 at 10:00 Tizanidine HCl (Zanaflex) 2 mg PRN Q12HR PRN PO MUSCLE SPASMS Last administered on 10/05/16 21:04; Start 10/05/16 at 19:15 Comment Review of Relevant I have reviewed the following items malorie (where applicable) has been applied. JACOB SHEETS MD Oct 06, 2016 18:01
[2016-10-06 19:00] VITALS: BP 133/52
[2016-10-06] MEDS: LIDOCAINE (700MG/PATCH) PATCH. TD SCH (20:26)
[2016-10-06] MEDS: ATORVASTATIN CALCIUM 40 MG TABLET. PO SCH (20:26)
[2016-10-06] MEDS: INSULIN DETEMIR 300 UNITS/3 ML INSULN.PEN. SQ SCH (20:34)
[2016-10-06 23:04] VITALS: BP 117/57
--- NOTE | 2016-10-07 01:20 | CONS ---
DATE OF CONSULTATION: Dr. De Santiago is her family physician. 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 She started having some neck pain and dizziness and neck pain with radiation to both upper extremities going on for the last few weeks. She was admitted on 10/03/2016, complaining of vertigo with associated nausea started in the last few days. The patient was seen in the Emergency Room. The patient with history of pneumonia, sepsis, right shoulder fracture, bronchitis, diabetes mellitus, carcinoma of breast with double mastectomy, hysterectomy, KNOWN ALLERGIC TO CODEINE. The patient lives with her and grandchild in [place], [place], [place], had stairs to manage. The patient noted some balance problems. Since admission, she had a CT scan and MRI scan of the brain, which were within normal limits and MRI scan of her cervical vertebrae revealed straightening of normal cervical curvature and multilevel mild degenerative disk disease without any significant cervical spinal or neural foraminal compromise. The patient admits still some dizziness and funny sensation in her head. The patient was seen by Neurology as per consultation. He felt it might be benign positional vertigo and that treating with meclizine and Valium and he commanded she might benefit from vestibular rehabilitation. PHYSICAL EXAMINATION: Today revealed a middle-aged female. She is alert, oriented to time, place, person and circumstance and follows commands appropriately, moves all 4 extremities voluntarily where she had 4+/5 grade muscle strength. Deep tendon reflexes are slightly exaggerated at both knees and ankles. She had equal perception of touch and pinprick sensation bilaterally. She had tenderness to palpation over right cervical paraspinal and posterior shoulder girdle muscles. She had some limitation of right shoulder abduction and external rotation at extremes. The patient is independent with bed mobility and transfers, and she can walk on level surface without any loss of balance. She can even walk on her tiptoes and on her heels without loss of balance, but she has some difficulty to try to walk on a straight line, one foot in front of the other. Her skin is intact at this time. No significant cervical paraspinal muscle spasm was noted at this time. ASSESSMENT: A middle-aged female with degenerative disk disease of cervical vertebrae with associated cervical paraspinal and right posterior shoulder girdle muscle strain and cervical radiculitis. No clinical evidence of ongoing cervical radiculopathy. The patient is status post right shoulder fracture with residual mild limitation of right shoulder abduction and external rotation that might have been contributing to her neck problem and dizziness. The patient with known diabetes mellitus. No clinical evidence of peripheral neuropathy. She also had some high level balance problems with hyperreflexia in her knees, but no significant cervical spinal stenosis as per MRI scan of her neck and no mid and lower back area discomfort. RECOMMENDATIONS: I have instructed her in a home program of physical modalities, trigger point massage and relax stretching exercise to her neck and shoulder girdle muscles and Codman exercise to her right shoulder. To start her on Naprosyn. Agree with trial of meclizine and Valium and home with outpatient followup when medically stable. Dr. Crespo, I appreciate asking me to participate in the care of this interesting patient. I will be glad to follow her with you as needed for her rehabilitation. MIRIAM DAVENPORT MD DR: TRA/stoney JOB#: [id number] / [id number] DINORAH Greenfield MD
[2016-10-07 03:26] VITALS: BP 113/43
[2016-10-07 04:49] LABS: BASO % 1 % (0-3); EOS % 3 % (0-3); HEMATOCRIT 35.3 % (36.0-47.0); LYMPH # 1.4 x10^3/uL (1.0-4.8); LYMPH % 29 % (24-48); MEAN CORPUSCULAR HEMOGLOBIN 24 pg (25-35); MEAN CORPUSCULAR HGB CONC 31 g/dL (31-37); MEAN CORPUSCULAR VOLUME 77 fL (79-100); MONO % 6 % (0-9); NEUT % 62 % (31-73); PLATELET COUNT 185 x10^3/uL (140-400); RED BLOOD COUNT 4.57 x10^6/uL (3.50-5.40); RED CELL DISTRIBUTION WIDTH 16.7 % (11.5-14.5); WHITE BLOOD COUNT 4.9 x10^3/uL (4.0-11.0)
[2016-10-07 05:18] LABS: ALBUMIN 3.1 g/dL (3.4-5.0); ALBUMIN/GLOBULIN RATIO 0.7 (1.0-1.7); CALCIUM 8.6 mg/dL (8.5-10.1); CREATININE 0.8 mg/dL (0.6-1.0); GFR 74.7; POTASSIUM 4.1 mmol/L (3.5-5.1); TOTAL BILIRUBIN 0.3 mg/dL (0.2-1.0); TOTAL PROTEIN 7.4 g/dL (6.4-8.2)
[2016-10-07 07:22] VITALS: BP 120/67
[2016-10-07] MEDS: LIDOCAINE (700MG/PATCH) PATCH. TD SCH (08:27)
[2016-10-07] MEDS: NAPROXEN 500 MG TABLET PO SCH (08:28)
[2016-10-07] MEDS: glyBURIDE 5 MG TABLET PO SCH (08:28)
[2016-10-07] MEDS: DULoxetine HCL 30 MG CAPSULE.DR PO SCH (08:28)
[2016-10-07] MEDS: FERROUS SULFATE 325 MG TABLET. PO SCH (08:28)
[2016-10-07] MEDS: PANTOPRAZOLE 40 MG TABLET.DR. PO SCH (08:28)
[2016-10-07] MEDS: SERTRALINE 50 MG TABLET. PO SCH (08:28)
[2016-10-07] MEDS: ASPIRIN CHEWABLE 81 MG TABLET. PO SCH (08:28)
[2016-10-07] MEDS: LISINOPRIL 2.5 MG TABLET PO SCH (08:29)
[2016-10-07] MEDS ORDERED: OXYC-323 PO (09:54)
[2016-10-07] MEDS ORDERED: LIDO700A27 TD (09:54)
--- NOTE | 2016-10-07 09:58 | PDOC3 ---
Discharge Summary Visit Information Date of Admission: Oct 03, 2016 Date of Discharge: Oct 07, 2016 Admitting Diagnosis: vertigo, neck pain Final Diagnosis 1. Vertigo: BPV. marked symptoms 2. Neck pain: new, MRI ok 3. DM2: adequate control 4. HTN: 5. HLD: on statin 6. Chronic pain syndrome. continue home meds 7. Abn LFTs: chronic 8. Anemia: microcytic. 9. Depression and anxiety History of Present Illness History of Present Illness neck pain worse, try lidoderm patch try wean off percocetsProblems Medical Problems: (1) Failure of outpatient treatment Status: Acute (2) Vertigo Status: Acute Brief Hospital Course Allergies Allergies Coded Allergies Type Severity Reaction Last Updated Verified codeine Allergy Intermediate 03/05/16 Yes Vital Signs Vital Signs Date Time Temp Pulse Resp B/P (MAP) Pulse Ox O2 Delivery O2 Flow Rate FiO2 10/07/16 08:29 74 120/67 10/07/16 08:23 Room Air 10/07/16 07:22 97.9 18 93 97.9 Lab Results Laboratory Tests Test 10/05/16 11:54 10/05/16 16:32 10/05/16 21:04 10/06/16 03:20 Glucose (Fingerstick) 216 mg/dL (70-99) 192 mg/dL (70-99) 262 mg/dL (70-99) White Blood Count 4.4 x10^3/uL (4.0-11.0) Red Blood Count 4.46 x10^6/uL (3.50-5.40) Hemoglobin 10.9 g/dL (12.0-15.5) Hematocrit 34.5 % (36.0-47.0) Mean Corpuscular Volume 77 fL (79-100) Mean Corpuscular Hemoglobin 25 pg (25-35) Mean Corpuscular Hemoglobin Concent 32 g/dL (31-37) Red Cell Distribution Width 16.9 % (11.5-14.5) Platelet Count 162 x10^3/uL (140-400) Neutrophils (%) (Auto) 56 % (31-73) Lymphocytes (%) (Auto) 34 % (24-48) Monocytes (%) (Auto) 7 % (0-9) Eosinophils (%) (Auto) 3 % (0-3) Basophils (%) (Auto) 1 % (0-3) Neutrophils # (Auto) 2.4 x10^3uL (1.8-7.7) Lymphocytes # (Auto) 1.5 x10^3/uL (1.0-4.8) Monocytes # (Auto) 0.3 x10^3/uL (0.0-1.1) Eosinophils # (Auto) 0.1 x10^3/uL (0.0-0.7) Basophils # (Auto) 0.0 x10^3/uL (0.0-0.2) Sodium Level 139 mmol/L (136-145) Potassium Level 4.3 mmol/L (3.5-5.1) Chloride Level 102 mmol/L (98-107) Carbon Dioxide Level 32 mmol/L (21-32) Anion Gap 5 (6-14) Blood Urea Nitrogen 9 mg/dL (7-20) Creatinine 0.9 mg/dL (0.6-1.0) Estimated GFR (Cockcroft-Gault) 65.2 BUN/Creatinine Ratio 10 (6-20) Glucose Level 281 mg/dL (70-99) Calcium Level 8.9 mg/dL (8.5-10.1) Total Bilirubin 0.2 mg/dL (0.2-1.0) Aspartate Amino Transf (AST/SGOT) 43 U/L (15-37) Alanine Aminotransferase (ALT/SGPT) 47 U/L (14-59) Alkaline Phosphatase 105 U/L (46-116) Total Protein 7.6 g/dL (6.4-8.2) Albumin 3.0 g/dL (3.4-5.0) Albumin/Globulin Ratio 0.7 (1.0-1.7) Test 10/06/16 07:14 10/06/16 11:44 10/06/16 16:52 10/06/16 20:09 Glucose (Fingerstick) 213 mg/dL (70-99) 249 mg/dL (70-99) 168 mg/dL (70-99) 240 mg/dL (70-99) Test 10/07/16 04:05 10/07/16 07:29 White Blood Count 4.9 x10^3/uL (4.0-11.0) Red Blood Count 4.57 x10^6/uL (3.50-5.40) Hemoglobin 11.0 g/dL (12.0-15.5) Hematocrit 35.3 % (36.0-47.0) Mean Corpuscular Volume 77 fL (79-100) Mean Corpuscular Hemoglobin 24 pg (25-35) Mean Corpuscular Hemoglobin Concent 31 g/dL (31-37) Red Cell Distribution Width 16.7 % (11.5-14.5) Platelet Count 185 x10^3/uL (140-400) Neutrophils (%) (Auto) 62 % (31-73) Lymphocytes (%) (Auto) 29 % (24-48) Monocytes (%) (Auto) 6 % (0-9) Eosinophils (%) (Auto) 3 % (0-3) Basophils (%) (Auto) 1 % (0-3) Neutrophils # (Auto) 3.1 x10^3uL (1.8-7.7) Lymphocytes # (Auto) 1.4 x10^3/uL (1.0-4.8) Monocytes # (Auto) 0.3 x10^3/uL (0.0-1.1) Eosinophils # (Auto) 0.1 x10^3/uL (0.0-0.7) Basophils # (Auto) 0.0 x10^3/uL (0.0-0.2) Sodium Level 140 mmol/L (136-145) Potassium Level 4.1 mmol/L (3.5-5.1) Chloride Level 103 mmol/L (98-107) Carbon Dioxide Level 32 mmol/L (21-32) Anion Gap 5 (6-14) Blood Urea Nitrogen 13 mg/dL (7-20) Creatinine 0.8 mg/dL (0.6-1.0) Estimated GFR (Cockcroft-Gault) 74.7 BUN/Creatinine Ratio 16 (6-20) Glucose Level 198 mg/dL (70-99) Calcium Level 8.6 mg/dL (8.5-10.1) Total Bilirubin 0.3 mg/dL (0.2-1.0) Aspartate Amino Transf (AST/SGOT) 39 U/L (15-37) Alanine Aminotransferase (ALT/SGPT) 42 U/L (14-59) Alkaline Phosphatase 94 U/L (46-116) Total Protein 7.4 g/dL (6.4-8.2) Albumin 3.1 g/dL (3.4-5.0) Albumin/Globulin Ratio 0.7 (1.0-1.7) Glucose (Fingerstick) 173 mg/dL (70-99) Laboratory Tests Test 10/06/16 11:44 10/06/16 16:52 10/06/16 20:09 10/07/16 04:05 Glucose (Fingerstick) 249 mg/dL (70-99) 168 mg/dL (70-99) 240 mg/dL (70-99) White Blood Count 4.9 x10^3/uL (4.0-11.0) Red Blood Count 4.57 x10^6/uL (3.50-5.40) Hemoglobin 11.0 g/dL (12.0-15.5) Hematocrit 35.3 % (36.0-47.0) Mean Corpuscular Volume 77 fL (79-100) Mean Corpuscular Hemoglobin 24 pg (25-35) Mean Corpuscular Hemoglobin Concent 31 g/dL (31-37) Red Cell Distribution Width 16.7 % (11.5-14.5) Platelet Count 185 x10^3/uL (140-400) Neutrophils (%) (Auto) 62 % (31-73) Lymphocytes (%) (Auto) 29 % (24-48) Monocytes (%) (Auto) 6 % (0-9) Eosinophils (%) (Auto) 3 % (0-3) Basophils (%) (Auto) 1 % (0-3) Neutrophils # (Auto) 3.1 x10^3uL (1.8-7.7) Lymphocytes # (Auto) 1.4 x10^3/uL (1.0-4.8) Monocytes # (Auto) 0.3 x10^3/uL (0.0-1.1) Eosinophils # (Auto) 0.1 x10^3/uL (0.0-0.7) Basophils # (Auto) 0.0 x10^3/uL (0.0-0.2) Sodium Level 140 mmol/L (136-145) Potassium Level 4.1 mmol/L (3.5-5.1) Chloride Level 103 mmol/L (98-107) Carbon Dioxide Level 32 mmol/L (21-32) Anion Gap 5 (6-14) Blood Urea Nitrogen 13 mg/dL (7-20) Creatinine 0.8 mg/dL (0.6-1.0) Estimated GFR (Cockcroft-Gault) 74.7 BUN/Creatinine Ratio 16 (6-20) Glucose Level 198 mg/dL (70-99) Calcium Level 8.6 mg/dL (8.5-10.1) Total Bilirubin 0.3 mg/dL (0.2-1.0) Aspartate Amino Transf (AST/SGOT) 39 U/L (15-37) Alanine Aminotransferase (ALT/SGPT) 42 U/L (14-59) Alkaline Phosphatase 94 U/L (46-116) Total Protein 7.4 g/dL (6.4-8.2) Albumin 3.1 g/dL (3.4-5.0) Albumin/Globulin Ratio 0.7 (1.0-1.7) Test 10/07/16 07:29 Glucose (Fingerstick) 173 mg/dL (70-99) Brief Hospital Course Ms. Aguirre is a 56 old woman admit with complaint of vertigo, could not walk. She also had neck pain and parathesias neuro and physiatry consult cleared, MRI brain and c-spine were largely normal , some mild stenosis only difficult to control pain, pt slow to improve Discharge Information Condition at Discharge: Improved Follow Up: Weeks Disposition/Orders: D/C to Home Scheduled Atorvastatin Calcium (Atorvastatin Calcium), 40 MG PO DAILY, (Reported) Benzonatate (Benzonatate), 1 CAP PO TID Duloxetine Hcl (Cymbalta), 30 MG PO DAILY, (Reported) Ferrous Sulfate (Iron Supplement), 1 TAB PO DAILY Glyburide (Glyburide), 2.5 MG PO DAILY, (Reported) Insulin Aspart (Novolog Flexpen), 12 UNIT SQ TIDWMEALHC, (Reported) Insulin Glargine,Hum.rec.anlog (Lantus Solostar), 50 UNIT SQ QHS, (Reported) Lisinopril (Lisinopril), 1 TAB PO DAILY, (Reported) Meclizine Hcl (Meclizine Hcl), 1 TAB PO TID Metformin Hcl (Metformin Hcl), 2,000 MG PO DAILY, (Reported) Omeprazole (Omeprazole), 40 MG PO DAILY, (Reported) Prednisone (Prednisone), 40 MG PO DAILY Sertraline Hcl (Zoloft), 50 MG PO DAILY, (Reported) Scheduled PRN Albuterol Sulfate (Proair Hfa Inhaler), 1 PUFF INH PRN Q6HRS PRN for SHORTNESS OF BREATH Diazepam (Valium), 5 MG PO TID PRN for MUSCLE SPASMS Ibuprofen (Ibuprofen), 600 MG PO PRN Q6HRS PRN for INFLAMMATION Insulin Glargine,Hum.rec.anlog (Toujeo Solostar), Unknown Dose SQ HS PRN for high blood sugar, (Reported) Meclizine Hcl (Meclizine Hcl), 1 TAB PO PRN TID PRN for VERTIGO Ondansetron (Zofran Odt), 4 MG PO BID PRN for NAUSEA/VOMITING Oxycodone/Apap 5-325 (Percocet 5-325 Mg Tablet), 1 TAB PO PRN Q6HRS PRN for PAIN Oxycodone/Apap 7.5-325 (Percocet 7.5-325 Mg Tablet), 1-2 TAB PO Q4-6HRS PRN for PAIN Patient Instructions Patient Instructions time > 30 min BRUNO MARTEL MD Oct 07, 2016 09:58
--- NOTE | 2016-10-07 10:25 | PDOC ---
PROGRESS NOTES Subjective Subjective She feels better with her dizziness. Objective Objective Vital Signs Date Time Temp Pulse Resp B/P (MAP) Pulse Ox O2 Delivery O2 Flow Rate FiO2 10/07/16 08:29 74 120/67 10/07/16 08:23 Room Air 10/07/16 07:22 97.9 18 93 97.9 Intake and Output 10/07/16 07:00 Intake Total 900 ml Balance 900 ml Intake Oral 900 ml # Voids 7 Physical Exam Physical Exam She continues with tenderness to palpation over right cervical paraspinal and posterior shoulder girdle muscles and high level balance deficits. Assessment Assessment Problems Medical Problems: (1) Failure of outpatient treatment Status: Acute (2) Vertigo Status: Acute Plan Plan of Care Agree with plans for home with out patient follow up. Comment Review of Relevant I have reviewed the following items malorie (where applicable) has been applied. Labs Laboratory Tests Test 10/05/16 11:54 10/05/16 16:32 10/05/16 21:04 10/06/16 03:20 Glucose (Fingerstick) 216 mg/dL (70-99) 192 mg/dL (70-99) 262 mg/dL (70-99) White Blood Count 4.4 x10^3/uL (4.0-11.0) Red Blood Count 4.46 x10^6/uL (3.50-5.40) Hemoglobin 10.9 g/dL (12.0-15.5) Hematocrit 34.5 % (36.0-47.0) Mean Corpuscular Volume 77 fL (79-100) Mean Corpuscular Hemoglobin 25 pg (25-35) Mean Corpuscular Hemoglobin Concent 32 g/dL (31-37) Red Cell Distribution Width 16.9 % (11.5-14.5) Platelet Count 162 x10^3/uL (140-400) Neutrophils (%) (Auto) 56 % (31-73) Lymphocytes (%) (Auto) 34 % (24-48) Monocytes (%) (Auto) 7 % (0-9) Eosinophils (%) (Auto) 3 % (0-3) Basophils (%) (Auto) 1 % (0-3) Neutrophils # (Auto) 2.4 x10^3uL (1.8-7.7) Lymphocytes # (Auto) 1.5 x10^3/uL (1.0-4.8) Monocytes # (Auto) 0.3 x10^3/uL (0.0-1.1) Eosinophils # (Auto) 0.1 x10^3/uL (0.0-0.7) Basophils # (Auto) 0.0 x10^3/uL (0.0-0.2) Sodium Level 139 mmol/L (136-145) Potassium Level 4.3 mmol/L (3.5-5.1) Chloride Level 102 mmol/L (98-107) Carbon Dioxide Level 32 mmol/L (21-32) Anion Gap 5 (6-14) Blood Urea Nitrogen 9 mg/dL (7-20) Creatinine 0.9 mg/dL (0.6-1.0) Estimated GFR (Cockcroft-Gault) 65.2 BUN/Creatinine Ratio 10 (6-20) Glucose Level 281 mg/dL (70-99) Calcium Level 8.9 mg/dL (8.5-10.1) Total Bilirubin 0.2 mg/dL (0.2-1.0) Aspartate Amino Transf (AST/SGOT) 43 U/L (15-37) Alanine Aminotransferase (ALT/SGPT) 47 U/L (14-59) Alkaline Phosphatase 105 U/L (46-116) Total Protein 7.6 g/dL (6.4-8.2) Albumin 3.0 g/dL (3.4-5.0) Albumin/Globulin Ratio 0.7 (1.0-1.7) Test 10/06/16 07:14 10/06/16 11:44 10/06/16 16:52 10/06/16 20:09 Glucose (Fingerstick) 213 mg/dL (70-99) 249 mg/dL (70-99) 168 mg/dL (70-99) 240 mg/dL (70-99) Test 10/07/16 04:05 10/07/16 07:29 White Blood Count 4.9 x10^3/uL (4.0-11.0) Red Blood Count 4.57 x10^6/uL (3.50-5.40) Hemoglobin 11.0 g/dL (12.0-15.5) Hematocrit 35.3 % (36.0-47.0) Mean Corpuscular Volume 77 fL (79-100) Mean Corpuscular Hemoglobin 24 pg (25-35) Mean Corpuscular Hemoglobin Concent 31 g/dL (31-37) Red Cell Distribution Width 16.7 % (11.5-14.5) Platelet Count 185 x10^3/uL (140-400) Neutrophils (%) (Auto) 62 % (31-73) Lymphocytes (%) (Auto) 29 % (24-48) Monocytes (%) (Auto) 6 % (0-9) Eosinophils (%) (Auto) 3 % (0-3) Basophils (%) (Auto) 1 % (0-3) Neutrophils # (Auto) 3.1 x10^3uL (1.8-7.7) Lymphocytes # (Auto) 1.4 x10^3/uL (1.0-4.8) Monocytes # (Auto) 0.3 x10^3/uL (0.0-1.1) Eosinophils # (Auto) 0.1 x10^3/uL (0.0-0.7) Basophils # (Auto) 0.0 x10^3/uL (0.0-0.2) Sodium Level 140 mmol/L (136-145) Potassium Level 4.1 mmol/L (3.5-5.1) Chloride Level 103 mmol/L (98-107) Carbon Dioxide Level 32 mmol/L (21-32) Anion Gap 5 (6-14) Blood Urea Nitrogen 13 mg/dL (7-20) Creatinine 0.8 mg/dL (0.6-1.0) Estimated GFR (Cockcroft-Gault) 74.7 BUN/Creatinine Ratio 16 (6-20) Glucose Level 198 mg/dL (70-99) Calcium Level 8.6 mg/dL (8.5-10.1) Total Bilirubin 0.3 mg/dL (0.2-1.0) Aspartate Amino Transf (AST/SGOT) 39 U/L (15-37) Alanine Aminotransferase (ALT/SGPT) 42 U/L (14-59) Alkaline Phosphatase 94 U/L (46-116) Total Protein 7.4 g/dL (6.4-8.2) Albumin 3.1 g/dL (3.4-5.0) Albumin/Globulin Ratio 0.7 (1.0-1.7) Glucose (Fingerstick) 173 mg/dL (70-99) Laboratory Tests Test 10/06/16 11:44 10/06/16 16:52 10/06/16 20:09 10/07/16 04:05 Glucose (Fingerstick) 249 mg/dL (70-99) 168 mg/dL (70-99) 240 mg/dL (70-99) White Blood Count 4.9 x10^3/uL (4.0-11.0) Red Blood Count 4.57 x10^6/uL (3.50-5.40) Hemoglobin 11.0 g/dL (12.0-15.5) Hematocrit 35.3 % (36.0-47.0) Mean Corpuscular Volume 77 fL (79-100) Mean Corpuscular Hemoglobin 24 pg (25-35) Mean Corpuscular Hemoglobin Concent 31 g/dL (31-37) Red Cell Distribution Width 16.7 % (11.5-14.5) Platelet Count 185 x10^3/uL (140-400) Neutrophils (%) (Auto) 62 % (31-73) Lymphocytes (%) (Auto) 29 % (24-48) Monocytes (%) (Auto) 6 % (0-9) Eosinophils (%) (Auto) 3 % (0-3) Basophils (%) (Auto) 1 % (0-3) Neutrophils # (Auto) 3.1 x10^3uL (1.8-7.7) Lymphocytes # (Auto) 1.4 x10^3/uL (1.0-4.8) Monocytes # (Auto) 0.3 x10^3/uL (0.0-1.1) Eosinophils # (Auto) 0.1 x10^3/uL (0.0-0.7) Basophils # (Auto) 0.0 x10^3/uL (0.0-0.2) Sodium Level 140 mmol/L (136-145) Potassium Level 4.1 mmol/L (3.5-5.1) Chloride Level 103 mmol/L (98-107) Carbon Dioxide Level 32 mmol/L (21-32) Anion Gap 5 (6-14) Blood Urea Nitrogen 13 mg/dL (7-20) Creatinine 0.8 mg/dL (0.6-1.0) Estimated GFR (Cockcroft-Gault) 74.7 BUN/Creatinine Ratio 16 (6-20) Glucose Level 198 mg/dL (70-99) Calcium Level 8.6 mg/dL (8.5-10.1) Total Bilirubin 0.3 mg/dL (0.2-1.0) Aspartate Amino Transf (AST/SGOT) 39 U/L (15-37) Alanine Aminotransferase (ALT/SGPT) 42 U/L (14-59) Alkaline Phosphatase 94 U/L (46-116) Total Protein 7.4 g/dL (6.4-8.2) Albumin 3.1 g/dL (3.4-5.0) Albumin/Globulin Ratio 0.7 (1.0-1.7) Test 10/07/16 07:29 Glucose (Fingerstick) 173 mg/dL (70-99) Medications Current Medications Ondansetron HCl (Zofran) 4 mg 1X ONCE IV Last administered on 10/03/16 11:57; Start 10/03/16 at 11:30; Stop 10/03/16 at 11:31; Status DC Meclizine HCl (Antivert) 25 mg 1X ONCE PO Last administered on 10/03/16 11:57 ; Start 10/03/16 at 11:30; Stop 10/03/16 at 11:31; Status DC Sodium Chloride 1,000 ml @ 1,000 mls/hr Q1H IV Last administered on 10/03/16 12:03; Start 10/03/16 at 11:26; Stop 10/03/16 at 12:25; Status DC Diazepam (Valium) 2 mg 1X ONCE IV Last administered on 10/03/16 12:02; Start 10/03/16 at 11:30; Stop 10/03/16 at 11:31; Status DC Ondansetron HCl (Zofran) 4 mg PRN Q8HRS PRN IV NAUSEA/VOMITING; Start 10/03/16 at 13:30; Stop 10/04/16 at 13:29; Status DC Fentanyl Citrate (Fentanyl 2ml Vial) 50 mcg PRN Q2HR PRN IV PAIN; Start at 13:30; Stop 10/04/16 at 10:36; Status DC Sodium Chloride 1,000 ml @ 100 mls/hr Q10H IV Last administered on 10/04/16 09:30; Start 10/03/16 at 13:30; Stop 10/04/16 at 13:29; Status DC Acetaminophen (Tylenol) 650 mg PRN Q4HRS PRN PO FEVER Last administered on 10/04 03:14; Start 10/03/16 at 13:30; Stop 10/04/16 at 13:29; Status DC Meclizine HCl (Antivert) 12.5 mg PRN Q6HRS PRN PO DIZZINESS Last administered on 10/06/16 10:35; Start 10/03/16 at 13:30 Diazepam (Valium) 2 mg PRN Q6HRS PRN IV DIZZINESS; Start 10/03/16 at 13:30 Aspirin (Children'S Aspirin) 81 mg DAILYWBKFT PO Last administered on 08:28; Start 10/04/16 at 10:15 Atorvastatin Calcium (Lipitor) 40 mg QHS PO Last administered on 10/06/16 20: 26; Start 10/04/16 at 21:00 Diazepam (Valium) 5 mg PRN TID PRN PO MUSCLE SPASM Last administered on 08:09; Start 10/04/16 at 10:30 Duloxetine HCl (Cymbalta) 30 mg DAILY PO Last administered on 10/07/16 08:28; Start 10/04/16 at 11:00 Ferrous Sulfate (Feosol) 325 mg DAILYWBKFT PO Last administered on 10/07/16 08 :28; Start 10/04/16 at 11:00 Lisinopril (Prinivil) 2.5 mg DAILY PO Last administered on 10/07/16 08:29; Start 10/04/16 at 11:00 Ondansetron HCl (Zofran Odt) 4 mg PRN BID PRN PO NAUSEA/VOMITING; Start at 10:30 Oxycodone/ Acetaminophen (Percocet 5/325) 1 tab PRN Q6HRS PRN PO PAIN Last administered on 10/05/16 04:22; Start 10/04/16 at 10:30 Sertraline HCl (Zoloft) 50 mg DAILY PO Last administered on 10/07/16 08:28; Start 10/04/16 at 11:00 Non-Formulary Medication 1 puff PRN Q6HRS PRN INH SHORTNESS OF BREATH; Start at 10:30; Status UNV Glyburide (Diabeta) 2.5 mg DAILY PO Last administered on 10/07/16 08:28; Start 10/04/16 at 11:00 Insulin Detemir (Levemir) 50 units QHS SQ Last administered on 10/06/16 20:34 ; Start 10/04/16 at 21:00 Pantoprazole Sodium (Protonix) 40 mg DAILYAC PO Last administered on 10/07/16 08:28; Start 10/04/16 at 11:00 Albuterol Sulfate (Ventolin Neb Soln) 2.5 mg PRN Q6HRS PRN NEB SHORTNESS OF BREATH; Start 10/04/16 at 10:30 Enoxaparin Sodium (Lovenox 40mg Syringe) 40 mg Q24H SQ Last administered on 10:34; Start 10/04/16 at 11:00 Oxycodone/ Acetaminophen (Percocet 5/325) 2 tab PRN Q6HRS PRN PO PAIN Last administered on 10/06/16 20:26; Start 10/05/16 at 15:00 Tizanidine HCl (Zanaflex) 2 mg PRN Q12HR PRN PO MUSCLE SPASMS Last administered on 10/05/16 21:04; Start 10/05/16 at 19:15 Naproxen (Naprosyn) 500 mg BIDWMEALS PO Last administered on 10/07/16 08:28; Start 10/06/16 at 10:00 Lidocaine (Lidoderm) 1 patch DAILY TD Last administered on 10/06/16 20:26; Start 10/06/16 at 15:00 Active Scripts Active Lidocaine 700 Mg Adh..patch 1 Patch TD DAILY Percocet 5-325 Mg Tablet (Oxycodone/Acetaminophen) 1 Each Tablet 1 Tab PO PRN Q6HRS PRN Valium (Diazepam) 5 Mg Tablet 5 Mg PO TID PRN Zofran Odt (Ondansetron) 4 Mg Tab.rapdis 4 Mg PO BID PRN Meclizine Hcl 25 Mg Tablet 1 Tab PO PRN TID PRN Benzonatate 200 Mg Capsule 1 Cap PO TID Proair Hfa Inhaler (Albuterol Sulfate) 8.5 Gm Hfa.aer.ad 1 Puff INH PRN Q6HRS PRN Meclizine Hcl 25 Mg Tablet 1 Tab PO TID Ibuprofen 600 Mg Tablet 600 Mg PO PRN Q6HRS PRN Iron Supplement (Ferrous Sulfate) 325 Mg Tablet 1 Tab PO DAILY Reported Lantus Solostar (Insulin Glargine,Hum.rec.anlog) 100 Unit/1 Ml Insuln.pen 50 Unit SQ QHS Lisinopril 2.5 Mg Tablet 1 Tab PO DAILY Novolog Flexpen (Insulin Aspart) 100 Unit/1 Ml Insuln.pen 12 Unit SQ TIDWMEALHC Toujeo Solostar (Insulin Glargine,Hum.rec.anlog) 300 Unit/1 Ml Insuln.pen Unknown Dose SQ HS PRN Atorvastatin Calcium 40 Mg Tablet 40 Mg PO DAILY Zoloft (Sertraline Hcl) 50 Mg Tablet 50 Mg PO DAILY Omeprazole 40 Mg Capsule.dr 40 Mg PO DAILY Metformin Hcl 1,000 Mg Tablet 2,000 Mg PO DAILY Glyburide 2.5 Mg Tablet 2.5 Mg PO DAILY Cymbalta (Duloxetine Hcl) 30 Mg Capsule.dr 30 Mg PO DAILY Vitals/I & O Vital Sign - Last 24 Hours 10/06/16 10/06/16 10/06/16 10/06/16 10:49 14:37 19:00 20:00 Temp 97.8 97.9 97.5 97.8 97.9 97.5 Pulse 73 71 74 Resp 19 19 20 B/P (MAP) 129/53 (78) 122/53 (76) 133/52 (79) Pulse Ox 93 96 95 O2 Delivery Room Air Room Air Room Air Room Air 10/06/16 10/07/16 10/07/16 10/07/16 23:04 03:26 07:22 08:23 Temp 95.9 96.6 97.9 95.9 96.6 97.9 Pulse 73 67 74 Resp 20 20 18 B/P (MAP) 117/57 (77) 113/43 (66) 120/67 (84) Pulse Ox 96 91 93 O2 Delivery Room Air Room Air Room Air Room Air 10/07/16 08:29 Pulse 74 B/P (MAP) 120/67 Intake and Output 10/06/16 10/06/16 10/07/16 15:00 23:00 07:00 Intake Total 660 ml 240 ml Balance 660 ml 240 ml MIRIAM DAVENPORT MD Oct 07, 2016 10:25
[2016-10-07 10:41] VITALS: BP 126/61
[2016-10-07] MEDS: ENOXAPARIN 40 MG/0.4 ML SYRINGE. SQ SCH (11:00)
== END 2016-10-07 11:03 | disposition home or self-care (01) | DRG 563 ==
LOC: ER 10:32 → 6 SOUTH 12:11
PROVIDERS: ADMIT Internal Medicine; ATTEND Internal Medicine
DX: S42.91XA Fracture of right shoulder girdle, part unspecified, initial encounter for closed fracture (principal); H81.10 Benign paroxysmal vertigo, unspecified ear; S16.1XXA Strain of muscle, fascia and tendon at neck level, initial encounter; D50.9 Iron deficiency anemia, unspecified; E11.42 Type 2 diabetes mellitus with diabetic polyneuropathy; E78.5 Hyperlipidemia, unspecified; F32.9 Major depressive disorder, single episode, unspecified; F41.9 Anxiety disorder, unspecified; G89.4 Chronic pain syndrome; I10 Essential (primary) hypertension; K21.9 Gastro-esophageal reflux disease without esophagitis; M50.10 Cervical disc disorder with radiculopathy, unspecified cervical region; E78.00 Pure hypercholesterolemia, unspecified; R29.2 Abnormal reflex; S46.911A Strain of unspecified muscle, fascia and tendon at shoulder and upper arm level, right arm, initial encounter; X58.XXXA Exposure to other specified factors, initial encounter; M19.90 Unspecified osteoarthritis, unspecified site; Z79.4 Long term (current) use of insulin; Z80.3 Family history of malignant neoplasm of breast; Z82.49 Family history of ischemic heart disease and other diseases of the circulatory system; Z85.3 Personal history of malignant neoplasm of breast; Z90.13 Acquired absence of bilateral breasts and nipples; Z90.710 Acquired absence of both cervix and uterus; Z87.01 Personal history of pneumonia (recurrent); Z88.5 Allergy status to narcotic agent; Z87.440 Personal history of urinary (tract) infections; Y93.89 Activity, other specified; Y92.89 Other specified places as the place of occurrence of the external cause; Y99.8 Other external cause status
CPT/HCPCS: 36415; 70450; 70551; 72141; 80048; 80053; 81001; 82962; 83690; 83735; 85027; 85610; 85730; 93005; 96361; 96374; 96375; J1650; J1815; J2405; J3360; J7030; J8597; 97110; 99285-25

== ENCOUNTER 2017-11-09 18:44 | Emergency (ER) | payer BC, OTHER ==
[2017-11-09 20:02] LABS: BILIRUBIN,URINE NEGATIVE (NEG); CLARITY,URINE CLEAR; COLOR,URINE YELLOW; GLUCOSE,URINE >=1000 mg/dL (NEG); NITRITE,URINE NEGATIVE (NEG); PROTEIN,URINE 100 mg/dL (NEG-TRACE)
[2017-11-09 20:09] LABS: ADD MAN DIFF? NO
[2017-11-09 20:11] LABS: BASO % 1 % (0-3); EOS # 0.1 x10^3/uL (0.0-0.7); EOS % 2 % (0-3); HEMATOCRIT 36.4 % (36.0-47.0); HEMOGLOBIN 11.6 g/dL (12.0-15.5); LYMPH # 2.2 x10^3/uL (1.0-4.8); LYMPH % 36 % (24-48); MEAN CORPUSCULAR HEMOGLOBIN 24 pg (25-35); MEAN CORPUSCULAR HGB CONC 32 g/dL (31-37); MEAN CORPUSCULAR VOLUME 76 fL (79-100); MONO # 0.4 x10^3/uL (0.0-1.1); MONO % 6 % (0-9); NEUT # 3.4 x10^3uL (1.8-7.7); NEUT % 55 % (31-73); PLATELET COUNT 217 x10^3/uL (140-400); RED BLOOD COUNT 4.78 x10^6/uL (3.50-5.40); RED CELL DISTRIBUTION WIDTH 16.5 % (11.5-14.5); WHITE BLOOD COUNT 6.2 x10^3/uL (4.0-11.0)
[2017-11-09 20:17] LABS: BACTERIA,URINE FEW /HPF (0-FEW); RBC,URINE 0 /HPF (0-2); SQUAMOUS EPITHELIAL CELL,UR FEW /LPF
[2017-11-09 20:20] LABS: INR 1.1 (0.8-1.1); PROTHROMBIN TIME PATIENT 13.5 SEC (11.7-14.0)
[2017-11-09 20:21] LABS: PARTIAL THROMBOPLASTIN TIME 29 SEC (24-38)
[2017-11-09] MEDS: IV NORMAL SALINE 1000ML BAG 1,000 ML IV (20:23)
[2017-11-09 20:28] LABS: ANION GAP 11 (6-14); BLOOD UREA NITROGEN 10 mg/dL (7-20); BUN/CREATININE RATIO 11 (6-20); CALCIUM 8.9 mg/dL (8.5-10.1); CARBON DIOXIDE 26 mmol/L (21-32); CHLORIDE 99 mmol/L (98-107); CREATININE 0.9 mg/dL (0.6-1.0); GLUCOSE 284 mg/dL (70-99); POTASSIUM 3.5 mmol/L (3.5-5.1); SODIUM 136 mmol/L (136-145)
[2017-11-09 20:33] LABS: TROPONINI < 0.017 ng/mL (0.000-0.055)
[2017-11-09 20:33] LABS: ALBUMIN 3.5 g/dL (3.4-5.0); ALBUMIN/GLOBULIN RATIO 0.7 (1.0-1.7); ALK PHOS 128 U/L (46-116); ALT (SGPT) 47 U/L (14-59); AST (SGOT) 40 U/L (15-37); LIPASE 464 U/L (73-393); MAGNESIUM 1.4 mg/dL (1.8-2.4); TOTAL BILIRUBIN 0.3 mg/dL (0.2-1.0); TOTAL PROTEIN 8.4 g/dL (6.4-8.2)
[2017-11-09 20:36] LABS: CKMB INDEX 0.7 % (0-4); CKMB MASS 1.8 ng/mL (0.0-3.6); CREATINE KINASE 269 U/L (26-192)
== END 2017-11-09 21:32 | disposition home or self-care (01) ==
LOC: ER 18:44
DX: R10.13 Epigastric pain (principal); R14.0 Abdominal distension (gaseous); E10.9 Type 1 diabetes mellitus without complications; K21.9 Gastro-esophageal reflux disease without esophagitis; E78.00 Pure hypercholesterolemia, unspecified
CPT/HCPCS: 36415; 74176; 80053; 81001; 82553; 83690; 83735; 84484; 85025; 85610; 85730; 87086; 93005; 99285-25; J7030

== ENCOUNTER 2017-11-15 12:23 | Inpatient (IN) | payer BC, OTHER ==
[2017-11-15 13:02] LABS: BILIRUBIN,URINE NEGATIVE (NEG); CLARITY,URINE CLEAR; COLOR,URINE YELLOW; GLUCOSE,URINE >=1000 mg/dL (NEG); NITRITE,URINE NEGATIVE (NEG); PH,URINE 5.5; PROTEIN,URINE 30 mg/dL (NEG-TRACE); UROBILINOGEN,URINE 0.2 mg/dL (0.2 mg/dL)
[2017-11-15 13:12] LABS: RBC,URINE 0 /HPF (0-2)
[2017-11-15 13:13] LABS: BACTERIA,URINE FEW /HPF (0-FEW); HYALINE CASTS, URINE FEW /HPF; SQUAMOUS EPITHELIAL CELL,UR MANY /LPF; YEAST,URINE PRESENT /HPF
[2017-11-15 13:16] LABS: ADD MAN DIFF? NO
[2017-11-15 13:18] LABS: BASO % 1 % (0-3); EOS # 0.1 x10^3/uL (0.0-0.7); EOS % 2 % (0-3); HEMATOCRIT 36.3 % (36.0-47.0); HEMOGLOBIN 11.8 g/dL (12.0-15.5); LYMPH # 1.9 x10^3/uL (1.0-4.8); LYMPH % 30 % (24-48); MEAN CORPUSCULAR HEMOGLOBIN 25 pg (25-35); MEAN CORPUSCULAR HGB CONC 33 g/dL (31-37); MEAN CORPUSCULAR VOLUME 76 fL (79-100); MONO # 0.4 x10^3/uL (0.0-1.1); MONO % 6 % (0-9); NEUT # 3.8 x10^3uL (1.8-7.7); NEUT % 61 % (31-73); PLATELET COUNT 247 x10^3/uL (140-400); RED CELL DISTRIBUTION WIDTH 16.3 % (11.5-14.5); WHITE BLOOD COUNT 6.2 x10^3/uL (4.0-11.0)
[2017-11-15] MEDS: MORPHINE SULFATE 4 MG/ML DISP.SYRIN. IV ×3 (13:18→18:36)
[2017-11-15] MEDS: ONDANSETRON PF 4 MG/2 ML VIAL. IV ×2 (13:18→21:19)
[2017-11-15 13:27] LABS: ANION GAP 7 (6-14); BLOOD UREA NITROGEN 13 mg/dL (7-20); CALCIUM 9.6 mg/dL (8.5-10.1); CARBON DIOXIDE 29 mmol/L (21-32); CHLORIDE 97 mmol/L (98-107); CREATININE 0.9 mg/dL (0.6-1.0); GLUCOSE 266 mg/dL (70-99); POTASSIUM 4.7 mmol/L (3.5-5.1); SODIUM 133 mmol/L (136-145)
[2017-11-15 13:33] LABS: ALBUMIN 3.5 g/dL (3.4-5.0); ALK PHOS 120 U/L (46-116); ALT (SGPT) 59 U/L (14-59); AST (SGOT) 60 U/L (15-37); DIRECT BILIRUBIN 0.1 mg/dL (0.0-0.2); LIPASE 337 U/L (73-393); TOTAL BILIRUBIN 0.3 mg/dL (0.2-1.0); TOTAL PROTEIN 8.4 g/dL (6.4-8.2)
[2017-11-15] MEDS ORDERED: CONTRAST GIVEN. MC (14:45)
[2017-11-15] MEDS: IOHEXOL 240 MG/ML 50ML VIAL. PO (14:45)
[2017-11-15] MEDS: IOHEXOL 300 MG/ML 100ML VIAL. IV (14:45)
[2017-11-15] MEDS ORDERED: DOCUSATE SODIUM 100 MG CAPSULE. PO (18:15)
[2017-11-15] MEDS ORDERED: DEXTROSE 50% 25 GM / 50ML DISP.SYRIN. IV (18:15)
[2017-11-15] MEDS ORDERED: traMADol 50 MG TABLET PO (18:15)
[2017-11-15] MEDS ORDERED: MORPHINE SULFATE 2 MG/ML DISP.SYRIN. IV (18:15)
[2017-11-15] MEDS ORDERED: hydrALAZINE 20 MG/ML VIAL. IVP (18:15)
[2017-11-15] MEDS: ENOXAPARIN 40 MG/0.4 ML SYRINGE. SQ (18:15)
[2017-11-15] MEDS: INSULIN LISPRO 300 UNITS/3 ML INSULN.PEN. SQ (18:30)
[2017-11-15] MEDS: IV NORMAL SALINE 1000ML BAG 1,000 ML IV (18:37)
[2017-11-15] MEDS ORDERED: ONDANSETRON PF 4 MG/2 ML VIAL. IV (18:45)
[2017-11-15] MEDS ORDERED: MORPHINE SULFATE 4 MG/ML DISP.SYRIN. IV (18:45)
[2017-11-15] MEDS: LIDOCAINE (700MG/PATCH) PATCH. TD ×2 (19:00→21:22)
[2017-11-15 20:57] LABS: POC GLUCOSE 208 mg/dL (70-99)
[2017-11-15] MEDS: PATCH REMOVAL. MC (21:00)
[2017-11-15] MEDS: ACETAMINOPHEN 325 MG TABLET. PO (21:27)
[2017-11-15] MEDS: INSULIN GLARGINE 300 UNITS/3 ML INSULN.PEN. SQ (21:33)
[2017-11-15] MEDS: diphenhydrAMINE HCL 25 MG CAPSULE PO (22:10)
[2017-11-16] MEDS: oxyCODONE/APAP 5/325 1 TAB TABLET PO ×3 (05:24→17:24)
[2017-11-16] MEDS: IV NORMAL SALINE 1000ML BAG 1,000 ML IV ×2 (05:25→14:37)
[2017-11-16 07:28] LABS: POC GLUCOSE 213 mg/dL (70-99)
[2017-11-16] MEDS: INSULIN LISPRO 300 UNITS/3 ML INSULN.PEN. SQ ×6 (08:03→17:23)
[2017-11-16] MEDS ORDERED: NON FORMULARY ITEM (Albuterol Sulfate (Proair Hfa Inhaler) 1 PUFF) INH (08:45)
[2017-11-16] MEDS ORDERED: diazePAM 5 MG TABLET PO (08:45)
[2017-11-16] MEDS ORDERED: LOPERAMIDE 2 MG CAPSULE PO (08:45)
[2017-11-16] MEDS ORDERED: ONDANSETRON ODT 4 MG TAB.RAPDIS. PO (08:45)
[2017-11-16] MEDS ORDERED: NON FORMULARY ITEM (Orphenadrine Citrate 1 TAB) PO (08:45)
[2017-11-16] MEDS ORDERED: LIDOCAINE TD (09:00)
[2017-11-16] MEDS: BENZONATATE 100 MG CAPSULE. PO ×2 (09:00→09:59)
[2017-11-16] MEDS: LIDOCAINE (700MG/PATCH) PATCH. TD (09:00)
[2017-11-16] MEDS ORDERED: MECLIZINE HCL 12.5 MG TABLET. PO (09:00)
[2017-11-16] MEDS ORDERED: ALBUTEROL SULFATE 2.5 MG/3 ML NEBU. NEB (09:15)
[2017-11-16] MEDS: glyBURIDE 5 MG TABLET PO ×2 (09:30→09:59)
[2017-11-16] MEDS: FERROUS SULFATE 325 MG TABLET. PO (09:57)
[2017-11-16] MEDS: DULoxetine HCL 30 MG CAPSULE.DR PO (09:57)
[2017-11-16] MEDS: SERTRALINE 50 MG TABLET. PO (09:58)
[2017-11-16] MEDS: LISINOPRIL 5 MG TABLET. PO (09:58)
[2017-11-16] MEDS: PANTOPRAZOLE 40 MG TABLET.DR. PO (10:00)
[2017-11-16 10:32] LABS: ADD MAN DIFF? NO
[2017-11-16 10:34] LABS: BASO % 1 % (0-3); EOS # 0.1 x10^3/uL (0.0-0.7); EOS % 3 % (0-3); HEMATOCRIT 33.6 % (36.0-47.0); HEMOGLOBIN 10.8 g/dL (12.0-15.5); LYMPH # 1.6 x10^3/uL (1.0-4.8); LYMPH % 36 % (24-48); MEAN CORPUSCULAR HEMOGLOBIN 25 pg (25-35); MEAN CORPUSCULAR HGB CONC 32 g/dL (31-37); MEAN CORPUSCULAR VOLUME 77 fL (79-100); MONO # 0.3 x10^3/uL (0.0-1.1); MONO % 7 % (0-9); NEUT # 2.5 x10^3uL (1.8-7.7); NEUT % 54 % (31-73); PLATELET COUNT 226 x10^3/uL (140-400); RED CELL DISTRIBUTION WIDTH 16.2 % (11.5-14.5); WHITE BLOOD COUNT 4.6 x10^3/uL (4.0-11.0)
[2017-11-16 11:12] LABS: ALBUMIN 3.1 g/dL (3.4-5.0); ALBUMIN/GLOBULIN RATIO 0.7 (1.0-1.7); ALK PHOS 104 U/L (46-116); ALT (SGPT) 62 U/L (14-59); ANION GAP 7 (6-14); AST (SGOT) 72 U/L (15-37); BLOOD UREA NITROGEN 11 mg/dL (7-20); BUN/CREATININE RATIO 14 (6-20); CALCIUM 8.9 mg/dL (8.5-10.1); CARBON DIOXIDE 28 mmol/L (21-32); CHLORIDE 100 mmol/L (98-107); CREATININE 0.8 mg/dL (0.6-1.0); GFR 74.5; GLUCOSE 205 mg/dL (70-99); POTASSIUM 3.7 mmol/L (3.5-5.1); SODIUM 135 mmol/L (136-145); TOTAL BILIRUBIN 0.2 mg/dL (0.2-1.0); TOTAL PROTEIN 7.4 g/dL (6.4-8.2)
[2017-11-16 12:08] LABS: POC GLUCOSE 125 mg/dL (70-99)
[2017-11-16 16:44] LABS: POC GLUCOSE 214 mg/dL (70-99)
[2017-11-16] MEDS: PATCH REMOVAL. MC (19:00)
[2017-11-16] MEDS: IBUPROFEN 600 MG TABLET. PO (20:49)
[2017-11-16] MEDS: ATORVASTATIN CALCIUM 40 MG TABLET. PO (20:49)
[2017-11-16 20:53] LABS: POC GLUCOSE 264 mg/dL (70-99)
[2017-11-16] MEDS: INSULIN GLARGINE 300 UNITS/3 ML INSULN.PEN. SQ (20:53)
[2017-11-17 07:38] LABS: POC GLUCOSE 186 mg/dL (70-99)
[2017-11-17] MEDS: LIDOCAINE (700MG/PATCH) PATCH. TD (08:06)
[2017-11-17] MEDS: FERROUS SULFATE 325 MG TABLET. PO (08:06)
[2017-11-17] MEDS: LISINOPRIL 5 MG TABLET. PO (08:06)
[2017-11-17] MEDS: DULoxetine HCL 30 MG CAPSULE.DR PO (08:06)
[2017-11-17] MEDS: PANTOPRAZOLE 40 MG TABLET.DR. PO ×2 (08:06→17:06)
[2017-11-17] MEDS: SERTRALINE 50 MG TABLET. PO (08:06)
[2017-11-17] MEDS: INSULIN LISPRO 300 UNITS/3 ML INSULN.PEN. SQ ×6 (08:12→17:13)
[2017-11-17 11:29] LABS: POC GLUCOSE 194 mg/dL (70-99)
[2017-11-17] MEDS: oxyCODONE/APAP 5/325 1 TAB TABLET PO (11:43)
[2017-11-17] MEDS ORDERED: fentaNYL PF VIAL 100 MCG/2 ML VIAL IV (15:15)
[2017-11-17 16:38] LABS: POC GLUCOSE 138 mg/dL (70-99)
[2017-11-17 20:55] LABS: POC GLUCOSE 267 mg/dL (70-99)
[2017-11-17] MEDS: PATCH REMOVAL. MC ×2 (21:00)
[2017-11-17] MEDS: ATORVASTATIN CALCIUM 40 MG TABLET. PO (21:11)
[2017-11-17] MEDS: IBUPROFEN 800 MG TABLET. PO (21:11)
[2017-11-17] MEDS: HYDROcodone/APAP 10/325 1 TAB TABLET PO (21:13)
[2017-11-17] MEDS: INSULIN GLARGINE 300 UNITS/3 ML INSULN.PEN. SQ (21:16)
[2017-11-18 08:23] LABS: POC GLUCOSE 278 mg/dL (70-99)
[2017-11-18] MEDS: INSULIN LISPRO 300 UNITS/3 ML INSULN.PEN. SQ ×4 (08:33→12:00)
[2017-11-18] MEDS: LIDOCAINE (700MG/PATCH) PATCH. TD (09:00)
[2017-11-18] MEDS: INSULIN GLARGINE 300 UNITS/3 ML INSULN.PEN. SQ (09:00)
[2017-11-18] MEDS ORDERED: LIDOCAINE (700MG/PATCH) PATCH. TD (10:00)
[2017-11-18] MEDS: SINCALIDE 1.5 MCG in IV NORMAL SALINE 50ML 30 ML IV (11:00)
[2017-11-18 12:06] LABS: POC GLUCOSE 117 mg/dL (70-99)
[2017-11-18] MEDS: IBUPROFEN 800 MG TABLET. PO (12:19)
[2017-11-18] MEDS: metFORMIN XR 500 MG TAB.ER.24H PO (12:19)
[2017-11-18] MEDS: DULoxetine HCL 30 MG CAPSULE.DR PO (12:20)
[2017-11-18] MEDS: PANTOPRAZOLE 40 MG TABLET.DR. PO (12:20)
[2017-11-18] MEDS: FERROUS SULFATE 325 MG TABLET. PO (12:21)
[2017-11-18] MEDS: SERTRALINE 50 MG TABLET. PO (12:21)
[2017-11-18] MEDS: LISINOPRIL 5 MG TABLET. PO (12:22)
[2017-11-18] MEDS ORDERED: PATCH REMOVAL. MC (21:00)
== END 2017-11-18 12:30 | disposition home or self-care (01) | DRG 552 ==
LOC: ER 12:23 → 4 NORTH 16:50
DX: M51.14 Intervertebral disc disorders with radiculopathy, thoracic region (principal); R10.9 Unspecified abdominal pain; D64.9 Anemia, unspecified; E10.42 Type 1 diabetes mellitus with diabetic polyneuropathy; E10.65 Type 1 diabetes mellitus with hyperglycemia; E78.00 Pure hypercholesterolemia, unspecified; E78.5 Hyperlipidemia, unspecified; F32.9 Major depressive disorder, single episode, unspecified; I10 Essential (primary) hypertension; J42 Unspecified chronic bronchitis; K21.9 Gastro-esophageal reflux disease without esophagitis; K22.70 Barrett's esophagus without dysplasia; K44.9 Diaphragmatic hernia without obstruction or gangrene; K57.90 Diverticulosis of intestine, part unspecified, without perforation or abscess without bleeding; K63.5 Polyp of colon; K76.0 Fatty (change of) liver, not elsewhere classified; K82.9 Disease of gallbladder, unspecified; Z79.4 Long term (current) use of insulin; Z79.899 Other long term (current) drug therapy; Z80.0 Family history of malignant neoplasm of digestive organs; Z82.49 Family history of ischemic heart disease and other diseases of the circulatory system; Z82.3 Family history of stroke; Z83.3 Family history of diabetes mellitus; Z85.3 Personal history of malignant neoplasm of breast; Z87.440 Personal history of urinary (tract) infections; Z90.13 Acquired absence of bilateral breasts and nipples; Z90.710 Acquired absence of both cervix and uterus; Z98.891 History of uterine scar from previous surgery
CPT/HCPCS: 36415; 71250; 72146; 74160; 76705; 78226; 78306; 80048; 80053; 80076; 81001; 82962; 83690; 85025; 94760; 96374; 96375; 96376; 99285; 99285-25; A9503; A9537; G0379; J1815; J2270; J2405; J2805; J7030; Q0163

== ENCOUNTER 2018-11-05 14:36 | Inpatient (IN) | payer BC, OTHER ==
[~2018-11-05] VITALS: Ht 165.1 cm; Wt 78.5 kg
[~2018-11-05 14:36] MED LIST changes: +ALBU2.5V8 INH; +BENZ-8 PO; -BENZ100C15 PO; +INSU100I13 SQ; +INSU100I17 SQ; +LIDO700A27 TD; +LISI2.5T PO; -METF-620 PO; +METF10007 PO; +ORPH100T PO; -OXYC-323 PO; -OXYC-327 PO; +OXYC1TAB15 PO; +OXYC1TAB19 PO; -PROAIR HFA8.5 GM INH
--- NOTE | 2018-11-05 16:08 | PHYS DOC ---
Past Medical History Past Medical History: Diabetes-Type II, GERD, High Cholesterol, Pneumonia, Other Additional Past Medical Histor: Ryan's esophogus, Sepsis, Vertigo Past Surgical History: , Hysterectomy, Other Additional Past Surgical Histo: bilateral mastectomy, removal of pelvic tumor Alcohol Use: None Drug Use: None Adult General Chief Complaint Chief Complaint: ABDOMINAL PAIN HPI HPI 58-year-old female presents to ER for complaints of right lower abdominal pain for the past 2 days- intermittent and cramping in nature. Patient reports she thought maybe she was constipated and has been using [id number] laxatives and enema. She reports she did have small bowel movement this morning denies any dark tarry or bloody stools. Patient denies any N/V/D, urinary/vaginal sxs, or pain radiation into back. Patient reports she does feel more full following small amount of fluid and food intake so she has had less fluid and food over the past couple of days. Pt denies any chest pain, back pain, or dictations, or shortness of air. She denies smoking or alcohol history. She denies any recent travel. Review of Systems Review of Systems Constitutional: Denies fever or chills [] Eyes: Denies change in visual acuity, redness, or eye pain [] HENT: Denies nasal congestion or sore throat [] Respiratory: Denies cough or shortness of breath [] Cardiovascular: No additional information not addressed in HPI [] GI: Denies nausea, vomiting, bloody stools or diarrhea. Reports rt lower abd pain/cramping intermittently : Denies dysuria or hematuria [] Musculoskeletal: Denies back pain or joint pain [] Integument: Denies rash or skin lesions [] Neurologic: Denies headache, focal weakness or sensory changes [] Endocrine: Denies polyuria or polydipsia [] All other systems were reviewed and found to be within normal limits, except as documented in this note. Current Medications Current Medications Current Medications Medications (Trade) Dose Ordered Sig/Arie Start Time Stop Time Status Last Admin Dose Admin Dicyclomine HCl (Bentyl) 20 mg 1X ONCE 11/05/18 17:15 11/05/18 17:16 DC 11/05/18 17:28 20 MG Info (CONTRAST GIVEN -- Rx MONITORING) 1 each PRN DAILY PRN 11/05/18 16:45 11/07/18 16:44 Iohexol (Omnipaque 300 Mg/ml) 60 ml 1X ONCE 11/05/18 16:45 11/05/18 16:46 DC 11/05/18 16:54 60 ML Sodium Chloride 1,000 ml @ 1,000 mls/hr 1X ONCE 11/05/18 16:15 11/05/18 17:14 DC 11/05/18 16:28 1,000 MLS/HR Allergies Allergies Physical Exam Physical Exam Constitutional: Well developed, well nourished, no acute distress, non-toxic appearance. [] HENT: Normocephalic, atraumatic, mucous membranes pink/dry, no oral exudates, nose normal. [] Eyes: Pupils equal, conjunctiva normal, no discharge. [] Neck: Normal range of motion, no tenderness, supple, no stridor. [] Cardiovascular: Heart rate regular rhythm, no murmur [] Lungs & Thorax: Bilateral breath sounds clear to auscultation- resp. e qual/nonlabored Abdomen: Bowel sounds normal, soft/obese- no distention/rigidity, tender mid to rt lower abd- no rebound, no masses, no pulsatile masses. [] Skin: Warm, dry, no erythema, no rash. [] Back: No tenderness, no CVA tenderness. [] Extremities: No tenderness, no cyanosis, no clubbing, ROM intact, no edema. [] Neurologic: Alert and oriented X 3, normal motor function, normal sensory function, no focal deficits noted. [] Psychologic: Affect normal, judgement normal, mood normal. [] Current Patient Data Vital Signs Vital Signs Date Time Temp Pulse Resp B/P (MAP) Pulse Ox O2 Delivery O2 Flow Rate FiO2 11/05/18 17:31 78 24 160/80 (106) 93 Room Air 11/05/18 15:45 98.2 98.2 Lab Values Laboratory Tests Test 11/05/18 15:53 11/05/18 15:59 Urine Collection Type Void Urine Color Yellow Urine Clarity Clear Urine pH 5.5 Urine Specific [place] 1.025 Urine Protein 30 mg/dL (NEG-TRACE) Urine Glucose (UA) 500 mg/dL (NEG) Urine Ketones (Stick) Negative mg/dL (NEG) Urine Blood Negative (NEG) Urine Nitrite Negative (NEG) Urine Bilirubin Negative (NEG) Urine Urobilinogen Dipstick 0.2 mg/dL (0.2 mg/dL) Urine Leukocyte Esterase Negative (NEG) Urine RBC 0 /HPF (0-2) Urine WBC Occ /HPF (0-4) Urine Squamous Epithelial Cells Many /LPF Urine Bacteria Many /HPF (0-FEW) Urine Mucus Marked /LPF White Blood Count 5.0 x10^3/uL (4.0-11.0) Red Blood Count 4.64 x10^6/uL (3.50-5.40) Hemoglobin 10.5 g/dL (12.0-15.5) L Hematocrit 33.0 % (36.0-47.0) L Mean Corpuscular Volume 71 fL (79-100) L Mean Corpuscular Hemoglobin 23 pg (25-35) L Mean Corpuscular Hemoglobin Concent 32 g/dL (31-37) Red Cell Distribution Width 19.8 % (11.5-14.5) H Platelet Count 293 x10^3/uL (140-400) Neutrophils (%) (Auto) 68 % (31-73) Lymphocytes (%) (Auto) 24 % (24-48) Monocytes (%) (Auto) 7 % (0-9) Eosinophils (%) (Auto) 1 % (0-3) Basophils (%) (Auto) 0 % (0-3) Neutrophils # (Auto) 3.4 x10^3/uL (1.8-7.7) Lymphocytes # (Auto) 1.2 x10^3/uL (1.0-4.8) Monocytes # (Auto) 0.3 x10^3/uL (0.0-1.1) Eosinophils # (Auto) 0.1 x10^3/uL (0.0-0.7) Basophils # (Auto) 0.0 x10^3/uL (0.0-0.2) Platelet Estimate Adequate (ADEQUATE) Hypochromasia Mod Anisocytosis Mod Microcytosis Mod Sodium Level 134 mmol/L (136-145) L Potassium Level 3.7 mmol/L (3.5-5.1) Chloride Level 98 mmol/L (98-107) Carbon Dioxide Level 27 mmol/L (21-32) Anion Gap 9 (6-14) Blood Urea Nitrogen 11 mg/dL (7-20) Creatinine 1.0 mg/dL (0.6-1.0) Estimated GFR (Cockcroft-Gault) 57.4 BUN/Creatinine Ratio 11 (6-20) Glucose Level 281 mg/dL (70-99) H Calcium Level 9.4 mg/dL (8.5-10.1) Magnesium Level 1.5 mg/dL (1.8-2.4) L Total Bilirubin 0.2 mg/dL (0.2-1.0) Aspartate Amino Transferase (AST) 34 U/L (15-37) Alanine Aminotransferase (ALT) 33 U/L (14-59) Alkaline Phosphatase 117 U/L (46-116) H Total Protein 8.3 g/dL (6.4-8.2) H Albumin 3.0 g/dL (3.4-5.0) L Albumin/Globulin Ratio 0.6 (1.0-1.7) L Lipase 281 U/L (73-393) Laboratory Tests 11/05/18 15:59 Laboratory Tests 11/05/18 15:59 EKG EKG [] Radiology/Procedures Radiology/Procedures PROCEDURE: CT ABD PELV W/ IV CONTRST ONLY CT ABD PELV W/ IV CONTRST ONLY Indication: Right lower abdominal pain. Exposure: One or more of the following individualized dose reduction techniques were utilized for this examination: 1. Automated exposure control 2. Adjustment of the mA and/or kV according to patient size 3. Use of iterative reconstruction technique. Technique: Intravenous contrast was given. No oral contrast per request. Comparison: November 15, 2017 and November 09, 2017. FINDINGS: Lung bases are clear. Liver is not enlarged. Spleen is mildly enlarged about 13 cm. Pancreas appears unremarkable. No evidence of adrenal mass. Kidneys demonstrate symmetric enhancement without evidence of hydronephrosis or mass. No calcified gallstone. The aorta is nonaneurysmal. Mildly enlarged lymph nodes are seen in the portal region and proximal aortocaval region, overall similar to the previous exam. Small hiatal hernia. No significant small bowel distention. Circumferential rectal wall thickening. Colonic diverticulosis. Wall thickening of the entire colon. Pericolonic inflammatory stranding, particularly around the distal transverse colon, descending colon and proximal sigmoid colon. No evidence of pneumoperitoneum or ascites. Urinary bladder appears unremarkable, incompletely distended. Small and deformed sacrum again identified. Exostosis arising from the inferior right iliac bone is stable. No evidence of aggressive bone destruction or acute fracture. IMPRESSION: 1. Diffuse colonic and rectal wall thickening. Associated pericolonic fatty stranding, greatest at the distal transverse, descending and proximal sigmoid colon. Findings are most compatible with colitis and proctitis. This could be secondary to diverticulitis. 2. Mild splenomegaly appears similar. Electronically signed by: Corey Renner MD (11/05/2018 5:22 PM) [id number] DICTATED and SIGNED BY: COREY RENNER MD DATE: 11/05/181721 Course & Med Decision Making Course & Med Decision Making Pertinent Labs and Imaging studies reviewed. (See chart for details) 175: Discussed test results with pt- CT of abdomen/pelvis insistent with colitis/diverticulitis findings. This was discussed with patient as she had had diverticulitis in the past she had reported. Discussed home discharge with prescriptions for antibiotics however patient reports with ongoing symptoms she is preferring admission at this time for further care. Call placed for hospitalist and spoke with Dr. Crespo and discussed patient's case and admission plan. Patient has history of low magnesium with today's labs 1.5. Will provide 2 g IV magnesium. Will start patient on IV Flagyl and Cipro. Patient reports she has had improvement in pain since receiving dicyclomine. Will consult GI with admission orders. Dragon Disclaimer Dragon Disclaimer This electronic medical record was generated, in whole or in part, using a voice recognition dictation system. Departure Departure Impression: Primary Impression: Diverticulitis Additional Impression: Abdominal pain Disposition: ADMITTED INPATIENT Admitting Physician: HIMS Condition: STABLE Referrals: DINORAH STEWART MD (PCP) Problem Qualifiers EZEQUIEL SALDANA APRN Nov 05, 2018 16:08
[2018-11-05 16:15] LABS: BASO % 0 % (0-3); EOS # 0.1 x10^3/uL (0.0-0.7); EOS % 1 % (0-3); HEMOGLOBIN 10.5 g/dL (12.0-15.5); LYMPH # 1.2 x10^3/uL (1.0-4.8); LYMPH % 24 % (24-48); MEAN CORPUSCULAR HEMOGLOBIN 23 pg (25-35); MEAN CORPUSCULAR HGB CONC 32 g/dL (31-37); MEAN CORPUSCULAR VOLUME 71 fL (79-100); MONO # 0.3 x10^3/uL (0.0-1.1); MONO % 7 % (0-9); NEUT # 3.4 x10^3/uL (1.8-7.7); NEUT % 68 % (31-73); PLATELET COUNT 293 x10^3/uL (140-400); RED BLOOD COUNT 4.64 x10^6/uL (3.50-5.40); RED CELL DISTRIBUTION WIDTH 19.8 % (11.5-14.5)
[2018-11-05 16:15] LABS: BILIRUBIN,URINE NEGATIVE (NEG); CLARITY,URINE CLEAR; COLOR,URINE YELLOW; NITRITE,URINE NEGATIVE (NEG); PH,URINE 5.5; PROTEIN,URINE 30 mg/dL (NEG-TRACE); UROBILINOGEN,URINE 0.2 mg/dL (0.2 mg/dL)
[2018-11-05] MEDS ORDERED: IV NORMAL SALINE 1000ML BAG 1,000 ML IV ONE (16:15)
[2018-11-05 16:24] LABS: BACTERIA,URINE MANY /HPF (0-FEW); RBC,URINE 0 /HPF (0-2); SQUAMOUS EPITHELIAL CELL,UR MANY /LPF; WBC,URINE OCC /HPF (0-4)
[2018-11-05 16:28] LABS: CALCIUM 9.4 mg/dL (8.5-10.1); GFR 57.4; POTASSIUM 3.7 mmol/L (3.5-5.1)
[2018-11-05 16:42] LABS: ALBUMIN/GLOBULIN RATIO 0.6 (1.0-1.7); MAGNESIUM 1.5 mg/dL (1.8-2.4); TOTAL BILIRUBIN 0.2 mg/dL (0.2-1.0); TOTAL PROTEIN 8.3 g/dL (6.4-8.2)
[2018-11-05] MEDS ORDERED: CONTRAST GIVEN. MC PRN (16:45)
[2018-11-05] MEDS ORDERED: IOHEXOL 300 MG/ML 100ML VIAL. IV ONE (16:45)
[2018-11-05 17:12] LABS: ANISOCYTOSIS MOD; HYPOCHROMIA MOD; MICROCYTOSIS MOD; PLT ESTIMATE ADEQUATE (ADEQUATE)
[2018-11-05] MEDS ORDERED: DICYCLOMINE 20 MG/2 ML AMPUL. IM ONE (17:15)
--- NOTE | 2018-11-05 17:25 | RAD ---
CT ABD PELV W/ IV CONTRST ONLY Indication: Right lower abdominal pain. Exposure: One or more of the following individualized dose reduction techniques were utilized for this examination: 1. Automated exposure control 2. Adjustment of the mA and/or kV according to patient size 3. Use of iterative reconstruction technique. Technique: Intravenous contrast was given. No oral contrast per request. Comparison: November 15, 2017 and November 09, 2017. FINDINGS: Lung bases are clear. Liver is not enlarged. Spleen is mildly enlarged about 13 cm. Pancreas appears unremarkable. No evidence of adrenal mass. Kidneys demonstrate symmetric enhancement without evidence of hydronephrosis or mass. No calcified gallstone. The aorta is nonaneurysmal. Mildly enlarged lymph nodes are seen in the portal region and proximal aortocaval region, overall similar to the previous exam. Small hiatal hernia. No significant small bowel distention. Circumferential rectal wall thickening. Colonic diverticulosis. Wall thickening of the entire colon. Pericolonic inflammatory stranding, particularly around the distal transverse colon, descending colon and proximal sigmoid colon. No evidence of pneumoperitoneum or ascites. Urinary bladder appears unremarkable, incompletely distended. Small and deformed sacrum again identified. Exostosis arising from the inferior right iliac bone is stable. No evidence of aggressive bone destruction or acute fracture. IMPRESSION: 1. Diffuse colonic and rectal wall thickening. Associated pericolonic fatty stranding, greatest at the distal transverse, descending and proximal sigmoid colon. Findings are most compatible with colitis and proctitis. This could be secondary to diverticulitis. 2. Mild splenomegaly appears similar. Electronically signed by: Corey Renner MD (11/05/2018 5:22 PM) [id number]
[2018-11-05] MEDS ORDERED: CIPROFLOXACIN 400MG PREMIX 200 ML IV ONE (18:00)
[2018-11-05] MEDS ORDERED: MAGNESIUM SULFATE 2GM 50 ML IV ONE (18:00)
[2018-11-05] MEDS ORDERED: ONDANSETRON PF 4 MG/2 ML VIAL. IV PRN (19:15)
[2018-11-05] MEDS ORDERED: fentaNYL PF VIAL 100 MCG/2 ML VIAL IV PRN (19:15)
[2018-11-05 19:45] VITALS: BP 117/65
--- NOTE | 2018-11-05 19:50 | NUR ---
ADMISSION NOTE: Patient arrived to room 565 via wheelchair, accompanied by ED staff. Patient able to transfer self to bed without any visible difficulty. Patient complains of hunger at this time, clear liquid diet ordered. Will provide Jell-O, chicken broth, and diet lemon-paskenta soda. Bed low, locked, call light within reach. Patient has no complaints at this time. Will continue to monitor.
[2018-11-05] MEDS ORDERED: MAGN400C PO (20:17)
[2018-11-05] MEDS ORDERED: BUPR150T6 PO (20:17)
[2018-11-05] MEDS: INSULIN GLARGINE 300 UNITS/3 ML INSULN.PEN. SQ SCH (22:26)
[2018-11-05 23:00] VITALS: BP 106/55
[2018-11-05 23:59] VITALS: BP 111/54
[2018-11-06 03:00] VITALS: BP 111/57
[2018-11-06 05:27] LABS: BASO % 0 % (0-3); EOS # 0.1 x10^3/uL (0.0-0.7); EOS % 2 % (0-3); HEMATOCRIT 31.2 % (36.0-47.0); HEMOGLOBIN 9.9 g/dL (12.0-15.5); LYMPH # 1.4 x10^3/uL (1.0-4.8); LYMPH % 25 % (24-48); MEAN CORPUSCULAR HEMOGLOBIN 22 pg (25-35); MEAN CORPUSCULAR HGB CONC 32 g/dL (31-37); MEAN CORPUSCULAR VOLUME 71 fL (79-100); MONO # 0.5 x10^3/uL (0.0-1.1); MONO % 9 % (0-9); NEUT # 3.6 x10^3/uL (1.8-7.7); NEUT % 64 % (31-73); PLATELET COUNT 273 x10^3/uL (140-400); RED CELL DISTRIBUTION WIDTH 19.4 % (11.5-14.5); WHITE BLOOD COUNT 5.6 x10^3/uL (4.0-11.0)
[2018-11-06 05:36] LABS: ALBUMIN 2.8 g/dL (3.4-5.0); ALBUMIN/GLOBULIN RATIO 0.5 (1.0-1.7); CALCIUM 9.2 mg/dL (8.5-10.1); CREATININE 0.8 mg/dL (0.6-1.0); GFR 74.2; POTASSIUM 3.7 mmol/L (3.5-5.1); TOTAL BILIRUBIN 0.2 mg/dL (0.2-1.0); TOTAL PROTEIN 7.9 g/dL (6.4-8.2)
[2018-11-06 07:59] VITALS: BP_SYST 116; BP_SYST 119; BP_DIAS 52; BP_DIAS 85
[2018-11-06] MEDS: DULoxetine HCL 30 MG CAPSULE.DR PO SCH (09:13)
[2018-11-06] MEDS: FERROUS SULFATE 325 MG TABLET. PO SCH (09:13)
[2018-11-06] MEDS: MAGNESIUM OXIDE 400 MG TABLET PO SCH (09:16)
[2018-11-06] MEDS: SERTRALINE 50 MG TABLET. PO SCH (09:16)
[2018-11-06] MEDS: PANTOPRAZOLE 40 MG TABLET.DR. PO SCH (09:16)
[2018-11-06] MEDS: buPROPion XL 150 MG TAB.ER.24H. PO SCH (09:16)
[2018-11-06] MEDS: LISINOPRIL 10 MG TABLET PO SCH (09:16)
[2018-11-06] MEDS: INSULIN LISPRO 300 UNITS/3 ML INSULN.PEN. SQ SCH ×3 (10:03→17:11)
--- NOTE | 2018-11-06 11:43 | NUR ---
Pt. BG this am was 138. Pt. on clear liquid diet. This nurse administered 12units of Humalog instead of 24units ordered. notified. Will continue to monitor.
[2018-11-06 11:59] VITALS: BP 111/54
--- NOTE | 2018-11-06 12:02 | PDOC1 ---
History and Physical Date of Admission: Date of Admission DATE: 11/06/18 TIME: 12:00 Chief Complaint: Problems: (1) Influenza B (2) Iron (Fe) deficiency anemia (3) N&V (nausea and vomiting) (4) Migraine (5) Chest pain (6) Fracture of greater tuberosity of humerus (7) Bronchitis (8) Vertigo (9) Bulging disc (10) Diverticulitis (11) Abdominal pain Chief Complain: Abdominal pain History of Present Illness: HPI: This is a pleasant middle-aged white female who presents to the ER with abdominal pain rated 7 out of 10 with associated nausea spell occurring for 2-3 days She tried taking some home meds with that and seemed to help Describes as agonizing Food makes it worse CAT scan confirmed diverticulosis with diverticulitis Discussed the case with ER physician remained the patient with IV antibiotics and consultation to GI Past Medical/Surgical History: PMH/PSH: Past Medical History: Diabetes-Type II, GERD, High Cholesterol, Pneumonia, Other Additional Past Medical Histor: Ryan's esophogus, Sepsis, Vertigo Past Surgical History: , Hysterectomy, Other Additional Past Surgical Histo: bilateral mastectomy, removal of pelvic tumor Alcohol Use: None Drug Use: None Allergies: Allergies: Coded Allergies: No Known Drug Allergies (Unverified , 11/05/18) Family History: Family History: Diverticular disease Social History: Social Hisoty: She doesn't drink smoke or take drugs 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 Current Medications: Current Medications Current Medications Sodium Chloride 1,000 ml @ 1,000 mls/hr 1X ONCE IV Last administered on 11/05/18at 16:28; Start 11/05/18 at 16:15; Stop 11/05/18 at 17:14; Status DC Iohexol (Omnipaque 300 Mg/ml) 60 ml 1X ONCE IV Last administered on 11/05/18at 16:54; Start 11/05/18 at 16:45; Stop 11/05/18 at 16:46; Status DC Info (CONTRAST GIVEN -- Rx MONITORING) 1 each PRN DAILY PRN MC SEE COMMENTS; Start 11/05/18 at 16:45; Stop 11/07/18 at 16:44 Dicyclomine HCl (Bentyl) 20 mg 1X ONCE IM Last administered on 11/05/18at 17:28; Start 11/05/18 at 17:15; Stop 11/05/18 at 17:16; Status DC Magnesium Sulfate 50 ml @ 25 mls/hr 1X ONCE IV Last administered on 11/05/18at 19:22; Start 11/05/18 at 18:00; Stop 11/05/18 at 19:59; Status DC Metronidazole 100 ml @ 100 mls/hr 1X ONCE IV Last administered on 11/05/18at 19:04; Start 11/05/18 at 18:00; Stop 11/05/18 at 18:59; Status DC Ciprofloxacin/ Dextrose 200 ml @ 200 mls/hr 1X ONCE IV Last administered on 11/05/18at 20:33; Start 11/05/18 at 18:00; Stop 11/05/18 at 18:59; Status DC Ondansetron HCl (Zofran) 4 mg PRN Q8HRS PRN IV NAUSEA/VOMITING; Start 11/05/18 at 19:15; Stop 11/06/18 at 19:14 Fentanyl Citrate (Fentanyl 2ml Vial) 25 mcg PRN Q2HR PRN IV PAIN; Start 11/05/18 at 19:15; Stop 11/06/18 at 19:14 Atorvastatin Calcium (Lipitor) 40 mg HS PO ; Start 11/06/18 at 21:00 Bupropion HCl (Wellbutrin Xl) 150 mg DAILY PO Last administered on 11/06/18at 09:16; Start 11/06/18 at 09:00 Duloxetine HCl (Cymbalta) 30 mg DAILY PO Last administered on 11/06/18at 09:13; Start 11/06/18 at 09:00 Ferrous Sulfate (Feosol) 325 mg DAILY PO Last administered on 11/06/18at 09:13; Start 11/06/18 at 09:00 Insulin Glargine (Lantus) 52 units QHS SQ Last administered on 11/05/18at 22:26; Start 11/05/18 at 22:00 Sertraline HCl (Zoloft) 50 mg DAILY PO Last administered on 11/06/18at 09:16; Start 11/06/18 at 09:00 Insulin Human Lispro (HumaLOG) 24 units TIDWMEALS SQ Last administered on 11/06/18at 10:03; Start 11/06/18 at 08:00 Lisinopril (Prinivil) 10 mg DAILY PO Last administered on 11/06/18at 09:16; Start 11/06/18 at 09:00 Magnesium Oxide (Magnesium Oxide) 400 mg DAILY PO Last administered on 11/06/18at 09:16; Start 11/06/18 at 09:00 Pantoprazole Sodium (Protonix) 40 mg DAILYAC PO Last administered on 11/06/18at 09:16; Start 11/06/18 at 07:30 Metformin HCl (Glucophage) 2,000 mg DAILYWBKFT PO ; Start 11/08/18 at 08:00 Active Scripts Active Iron Supplement (Ferrous Sulfate) 325 Mg Tablet 1 Tab PO DAILY Reported Bupropion Xl (Bupropion Hcl) 150 Mg Tab.er.24h 150 Mg PO DAILY Magnesium (Magnesium Oxide) 400 Mg Capsule 1 Cap PO DAILY Lantus Solostar (Insulin Glargine,Hum.rec.anlog) 100 Unit/1 Ml Insuln.pen 52 Unit SQ QHS Lisinopril 2.5 Mg Tablet 10 Mg PO DAILY Novolog Flexpen (Insulin Aspart) 100 Unit/1 Ml Insuln.pen 24 Unit SQ TIDWMEALS Atorvastatin Calcium 40 Mg Tablet 40 Mg PO DAILY Zoloft (Sertraline Hcl) 50 Mg Tablet 50 Mg PO DAILY Omeprazole 40 Mg Capsule.dr 40 Mg PO DAILY Metformin Hcl 1,000 Mg Tablet 2,000 Mg PO DAILY Cymbalta (Duloxetine Hcl) 30 Mg Capsule.dr 30 Mg PO DAILY ROS: Review of Systems Review of System REVIEW OF SYSTEMS: GENERAL: Denies weakness SKIN: No bruising, hair changes or rashes. EYES: No blurred, double or loss of vision. NOSE AND THROAT: No history of nosebleeds, hoarseness or sore throat. HEART: No history of palpitations, chest pain or shortness of breath on exertion. LUNGS: Denies cough, hemoptysis, wheezing or shortness of breath. GASTROINTESTINAL: Complains of abdominal pain constipation. GENITOURINARY: No history of frequency, urgency, hesitancy or nocturia. NEUROLOGIC: Denies history of numbness, tingling, tremor or weakness. PSYCHIATRIC: No history of panic, anxiety or depression. ENDOCRINE: No history of heat or cold intolerance, polyuria or polydipsia. EXTREMITIES: Denies muscle weakness, joint pain, pain on walking or stiffness. Physical Exam: Vital Signs: Vital Signs Date Time Temp Pulse Resp B/P (MAP) Pulse Ox O2 Delivery O2 Flow Rate FiO2 11/06/18 09:16 67 116/52 11/06/18 08:00 Room Air 11/06/18 07:59 98.1 18 97 98.1 Physcial Exam: GEN.: No apparent distress. Alert and oriented. HEENT: Head is normocephalic, atraumatic NECK: Supple, no JVD LUNGS: Clear to auscultation without rhonchi or wheezing HEART: RRR, S1, S2 present. Peripheral pulses intact ABDOMEN: Soft tender decreased bowel sounds EXTREMITIES: Without any cyanosis, clubbing, or edema. Pedal pulses intact NEUROLOGIC: Normal speech, normal tone. A&O x 3 PSYCHIATRIC: Normal affect, normal mood. Stable SKIN: No ulcerations or rashes VASCULAR: Good capillary refill Labs: Labs: Laboratory Tests Test 11/05/18 15:53 11/05/18 15:59 11/05/18 20:58 11/06/18 04:20 Urine Collection Type Void Urine Color Yellow Urine Clarity Clear Urine pH 5.5 Urine Specific [place] 1.025 Urine Protein 30 mg/dL (NEG-TRACE) Urine Glucose (UA) 500 mg/dL (NEG) Urine Ketones (Stick) Negative mg/dL (NEG) Urine Blood Negative (NEG) Urine Nitrite Negative (NEG) Urine Bilirubin Negative (NEG) Urine Urobilinogen Dipstick 0.2 mg/dL (0.2 mg/dL) Urine Leukocyte Esterase Negative (NEG) Urine RBC 0 /HPF (0-2) Urine WBC Occ /HPF (0-4) Urine Squamous Epithelial Cells Many /LPF Urine Bacteria Many /HPF (0-FEW) Urine Mucus Marked /LPF White Blood Count 5.0 x10^3/uL (4.0-11.0) 5.6 x10^3/uL (4.0-11.0) Red Blood Count 4.64 x10^6/uL (3.50-5.40) 4.40 x10^6/uL (3.50-5.40) Hemoglobin 10.5 g/dL (12.0-15.5) 9.9 g/dL (12.0-15.5) Hematocrit 33.0 % (36.0-47.0) 31.2 % (36.0-47.0) Mean Corpuscular Volume 71 fL (79-100) 71 fL (79-100) Mean Corpuscular Hemoglobin 23 pg (25-35) 22 pg (25-35) Mean Corpuscular Hemoglobin Concent 32 g/dL (31-37) 32 g/dL (31-37) Red Cell Distribution Width 19.8 % (11.5-14.5) 19.4 % (11.5-14.5) Platelet Count 293 x10^3/uL (140-400) 273 x10^3/uL (140-400) Neutrophils (%) (Auto) 68 % (31-73) 64 % (31-73) Lymphocytes (%) (Auto) 24 % (24-48) 25 % (24-48) Monocytes (%) (Auto) 7 % (0-9) 9 % (0-9) Eosinophils (%) (Auto) 1 % (0-3) 2 % (0-3) Basophils (%) (Auto) 0 % (0-3) 0 % (0-3) Neutrophils # (Auto) 3.4 x10^3/uL (1.8-7.7) 3.6 x10^3/uL (1.8-7.7) Lymphocytes # (Auto) 1.2 x10^3/uL (1.0-4.8) 1.4 x10^3/uL (1.0-4.8) Monocytes # (Auto) 0.3 x10^3/uL (0.0-1.1) 0.5 x10^3/uL (0.0-1.1) Eosinophils # (Auto) 0.1 x10^3/uL (0.0-0.7) 0.1 x10^3/uL (0.0-0.7) Basophils # (Auto) 0.0 x10^3/uL (0.0-0.2) 0.0 x10^3/uL (0.0-0.2) Platelet Estimate Adequate (ADEQUATE) Hypochromasia Mod Anisocytosis Mod Microcytosis Mod Sodium Level 134 mmol/L (136-145) 141 mmol/L (136-145) Potassium Level 3.7 mmol/L (3.5-5.1) 3.7 mmol/L (3.5-5.1) Chloride Level 98 mmol/L (98-107) 103 mmol/L (98-107) Carbon Dioxide Level 27 mmol/L (21-32) 29 mmol/L (21-32) Anion Gap 9 (6-14) 9 (6-14) Blood Urea Nitrogen 11 mg/dL (7-20) 8 mg/dL (7-20) Creatinine 1.0 mg/dL (0.6-1.0) 0.8 mg/dL (0.6-1.0) Estimated GFR (Cockcroft-Gault) 57.4 74.2 BUN/Creatinine Ratio 11 (6-20) 10 (6-20) Glucose Level 281 mg/dL (70-99) 105 mg/dL (70-99) Calcium Level 9.4 mg/dL (8.5-10.1) 9.2 mg/dL (8.5-10.1) Magnesium Level 1.5 mg/dL (1.8-2.4) Total Bilirubin 0.2 mg/dL (0.2-1.0) 0.2 mg/dL (0.2-1.0) Aspartate Amino Transf (AST/SGOT) 34 U/L (15-37) 31 U/L (15-37) Alanine Aminotransferase (ALT/SGPT) 33 U/L (14-59) 30 U/L (14-59) Alkaline Phosphatase 117 U/L (46-116) 110 U/L (46-116) Total Protein 8.3 g/dL (6.4-8.2) 7.9 g/dL (6.4-8.2) Albumin 3.0 g/dL (3.4-5.0) 2.8 g/dL (3.4-5.0) Albumin/Globulin Ratio 0.6 (1.0-1.7) 0.5 (1.0-1.7) Lipase 281 U/L (73-393) Glucose (Fingerstick) 195 mg/dL (70-99) Test 11/06/18 08:00 Glucose (Fingerstick) 138 mg/dL (70-99) Laboratory Tests Test 11/05/18 15:53 11/05/18 15:59 11/05/18 20:58 11/06/18 04:20 Urine Collection Type Void Urine Color Yellow Urine Clarity Clear Urine pH 5.5 Urine Specific [place] 1.025 Urine Protein 30 mg/dL (NEG-TRACE) Urine Glucose (UA) 500 mg/dL (NEG) Urine Ketones (Stick) Negative mg/dL (NEG) Urine Blood Negative (NEG) Urine Nitrite Negative (NEG) Urine Bilirubin Negative (NEG) Urine Urobilinogen Dipstick 0.2 mg/dL (0.2 mg/dL) Urine Leukocyte Esterase Negative (NEG) Urine RBC 0 /HPF (0-2) Urine WBC Occ /HPF (0-4) Urine Squamous Epithelial Cells Many /LPF Urine Bacteria Many /HPF (0-FEW) Urine Mucus Marked /LPF White Blood Count 5.0 x10^3/uL (4.0-11.0) 5.6 x10^3/uL (4.0-11.0) Red Blood Count 4.64 x10^6/uL (3.50-5.40) 4.40 x10^6/uL (3.50-5.40) Hemoglobin 10.5 g/dL (12.0-15.5) 9.9 g/dL (12.0-15.5) Hematocrit 33.0 % (36.0-47.0) 31.2 % (36.0-47.0) Mean Corpuscular Volume 71 fL (79-100) 71 fL (79-100) Mean Corpuscular Hemoglobin 23 pg (25-35) 22 pg (25-35) Mean Corpuscular Hemoglobin Concent 32 g/dL (31-37) 32 g/dL (31-37) Red Cell Distribution Width 19.8 % (11.5-14.5) 19.4 % (11.5-14.5) Platelet Count 293 x10^3/uL (140-400) 273 x10^3/uL (140-400) Neutrophils (%) (Auto) 68 % (31-73) 64 % (31-73) Lymphocytes (%) (Auto) 24 % (24-48) 25 % (24-48) Monocytes (%) (Auto) 7 % (0-9) 9 % (0-9) Eosinophils (%) (Auto) 1 % (0-3) 2 % (0-3) Basophils (%) (Auto) 0 % (0-3) 0 % (0-3) Neutrophils # (Auto) 3.4 x10^3/uL (1.8-7.7) 3.6 x10^3/uL (1.8-7.7) Lymphocytes # (Auto) 1.2 x10^3/uL (1.0-4.8) 1.4 x10^3/uL (1.0-4.8) Monocytes # (Auto) 0.3 x10^3/uL (0.0-1.1) 0.5 x10^3/uL (0.0-1.1) Eosinophils # (Auto) 0.1 x10^3/uL (0.0-0.7) 0.1 x10^3/uL (0.0-0.7) Basophils # (Auto) 0.0 x10^3/uL (0.0-0.2) 0.0 x10^3/uL (0.0-0.2) Platelet Estimate Adequate (ADEQUATE) Hypochromasia Mod Anisocytosis Mod Microcytosis Mod Sodium Level 134 mmol/L (136-145) 141 mmol/L (136-145) Potassium Level 3.7 mmol/L (3.5-5.1) 3.7 mmol/L (3.5-5.1) Chloride Level 98 mmol/L (98-107) 103 mmol/L (98-107) Carbon Dioxide Level 27 mmol/L (21-32) 29 mmol/L (21-32) Anion Gap 9 (6-14) 9 (6-14) Blood Urea Nitrogen 11 mg/dL (7-20) 8 mg/dL (7-20) Creatinine 1.0 mg/dL (0.6-1.0) 0.8 mg/dL (0.6-1.0) Estimated GFR (Cockcroft-Gault) 57.4 74.2 BUN/Creatinine Ratio 11 (6-20) 10 (6-20) Glucose Level 281 mg/dL (70-99) 105 mg/dL (70-99) Calcium Level 9.4 mg/dL (8.5-10.1) 9.2 mg/dL (8.5-10.1) Magnesium Level 1.5 mg/dL (1.8-2.4) Total Bilirubin 0.2 mg/dL (0.2-1.0) 0.2 mg/dL (0.2-1.0) Aspartate Amino Transf (AST/SGOT) 34 U/L (15-37) 31 U/L (15-37) Alanine Aminotransferase (ALT/SGPT) 33 U/L (14-59) 30 U/L (14-59) Alkaline Phosphatase 117 U/L (46-116) 110 U/L (46-116) Total Protein 8.3 g/dL (6.4-8.2) 7.9 g/dL (6.4-8.2) Albumin 3.0 g/dL (3.4-5.0) 2.8 g/dL (3.4-5.0) Albumin/Globulin Ratio 0.6 (1.0-1.7) 0.5 (1.0-1.7) Lipase 281 U/L (73-393) Glucose (Fingerstick) 195 mg/dL (70-99) Test 11/06/18 08:00 Glucose (Fingerstick) 138 mg/dL (70-99) Images: Images CT showed diverticulitis Assessment/Plan Assessment/Plan Diverticulitis Plan IV Cipro and Flagyl IV fluids Consul GI Home meds Daily labs PT OT DVT prophylaxis Full code LUANN ARITA III DO Nov 06, 2018 12:02
--- NOTE | 2018-11-06 13:10 | PDOC2 ---
GI CONSULT Reason For Consult: Abdominal pain/abnormal CT HPI: HPI: 58 y/o female presented to ER after 2-3 days of LQ cramping pain. To me, says not ever more localized. Did have one loose stool during this, but not ongoing diarrhea. No N, V. Elbe maybe she was constipated and took docusate (not really a laxative) w/o avail. WBC normal x 2 here. No real fever. On CT, appearance of mural thickening in lots of colon (though largely decompressed) and "inflammatory stranding" in a few areas. Today thinks she's better. Does have diverticulosis and h/o diverticulitis, but not localized pain or CT findings to support. Typically some stool variability. Possibly treated for SIBO in the past. No overt GI bleeding. Has h/o polyps with last colonoscopy ~2012. Wt/appetite OK today. H/o colon cancer in maternal grandfather. Long h/o GERD with long-segment Ryan's taking daily PPI. Last surveillance EGD in 2012 as well. Did have EGD by me in 2016 for question of UGI bleeding, but did not biopsy. Known multiple fundic gland polyps in stomach. No dysphagia, PUD, GB or pancreatic disease. Did have HIDA with GBEF in past with low-normal GB emptying. H/o NAFLD. Has given h/o acute HBV in past; serologies here not consistent with chronic HBV. No tobacco or alcohol use. LONG h/o YOSELIN dating back to 1998 per our EMR. PMH: PMH: DM, HLP, UTIs, depression, breast cancer. S/P trans/flap abdominoplasty, bilateral mastectomies, hysterectomy, remote bronchscopy. FH: Family History: Cancer, CVA, DM, Hypertension Social History: Smoke: No ALCOHOL: none Drugs: None ROS: GEN: Denies fevers, chills, sweats HEENT: Denies blurred vision, sore throat CV: Denies chest pain RESP: Denies shortness of air, cough GI: Per HPI : Denies hematuria, dysuria ENDO: Denies weight changes NEURO: Denies confusion, dizziness MSK: Denies weakness, joint pain/swelling SKIN: Denies jaundice, pruritus Vitals: Vitals: Vital Signs Date Time Temp Pulse Resp B/P (MAP) Pulse Ox O2 Delivery O2 Flow Rate FiO2 7/13/19 11:59 97.4 67 20 111/54 (73) 97 Room Air 97.4 Labs: Labs: Laboratory Tests Test 11/05/18 15:53 11/05/18 15:59 11/05/18 20:58 11/06/18 04:20 Urine Collection Type Void Urine Color Yellow Urine Clarity Clear Urine pH 5.5 Urine Specific [place] 1.025 Urine Protein 30 mg/dL (NEG-TRACE) Urine Glucose (UA) 500 mg/dL (NEG) Urine Ketones (Stick) Negative mg/dL (NEG) Urine Blood Negative (NEG) Urine Nitrite Negative (NEG) Urine Bilirubin Negative (NEG) Urine Urobilinogen Dipstick 0.2 mg/dL (0.2 mg/dL) Urine Leukocyte Esterase Negative (NEG) Urine RBC 0 /HPF (0-2) Urine WBC Occ /HPF (0-4) Urine Squamous Epithelial Cells Many /LPF Urine Bacteria Many /HPF (0-FEW) Urine Mucus Marked /LPF White Blood Count 5.0 x10^3/uL (4.0-11.0) 5.6 x10^3/uL (4.0-11.0) Red Blood Count 4.64 x10^6/uL (3.50-5.40) 4.40 x10^6/uL (3.50-5.40) Hemoglobin 10.5 g/dL (12.0-15.5) 9.9 g/dL (12.0-15.5) Hematocrit 33.0 % (36.0-47.0) 31.2 % (36.0-47.0) Mean Corpuscular Volume 71 fL (79-100) 71 fL (79-100) Mean Corpuscular Hemoglobin 23 pg (25-35) 22 pg (25-35) Mean Corpuscular Hemoglobin Concent 32 g/dL (31-37) 32 g/dL (31-37) Red Cell Distribution Width 19.8 % (11.5-14.5) 19.4 % (11.5-14.5) Platelet Count 293 x10^3/uL (140-400) 273 x10^3/uL (140-400) Neutrophils (%) (Auto) 68 % (31-73) 64 % (31-73) Lymphocytes (%) (Auto) 24 % (24-48) 25 % (24-48) Monocytes (%) (Auto) 7 % (0-9) 9 % (0-9) Eosinophils (%) (Auto) 1 % (0-3) 2 % (0-3) Basophils (%) (Auto) 0 % (0-3) 0 % (0-3) Neutrophils # (Auto) 3.4 x10^3/uL (1.8-7.7) 3.6 x10^3/uL (1.8-7.7) Lymphocytes # (Auto) 1.2 x10^3/uL (1.0-4.8) 1.4 x10^3/uL (1.0-4.8) Monocytes # (Auto) 0.3 x10^3/uL (0.0-1.1) 0.5 x10^3/uL (0.0-1.1) Eosinophils # (Auto) 0.1 x10^3/uL (0.0-0.7) 0.1 x10^3/uL (0.0-0.7) Basophils # (Auto) 0.0 x10^3/uL (0.0-0.2) 0.0 x10^3/uL (0.0-0.2) Platelet Estimate Adequate (ADEQUATE) Hypochromasia Mod Anisocytosis Mod Microcytosis Mod Sodium Level 134 mmol/L (136-145) 141 mmol/L (136-145) Potassium Level 3.7 mmol/L (3.5-5.1) 3.7 mmol/L (3.5-5.1) Chloride Level 98 mmol/L (98-107) 103 mmol/L (98-107) Carbon Dioxide Level 27 mmol/L (21-32) 29 mmol/L (21-32) Anion Gap 9 (6-14) 9 (6-14) Blood Urea Nitrogen 11 mg/dL (7-20) 8 mg/dL (7-20) Creatinine 1.0 mg/dL (0.6-1.0) 0.8 mg/dL (0.6-1.0) Estimated GFR (Cockcroft-Gault) 57.4 74.2 BUN/Creatinine Ratio 11 (6-20) 10 (6-20) Glucose Level 281 mg/dL (70-99) 105 mg/dL (70-99) Calcium Level 9.4 mg/dL (8.5-10.1) 9.2 mg/dL (8.5-10.1) Magnesium Level 1.5 mg/dL (1.8-2.4) Total Bilirubin 0.2 mg/dL (0.2-1.0) 0.2 mg/dL (0.2-1.0) Aspartate Amino Transf (AST/SGOT) 34 U/L (15-37) 31 U/L (15-37) Alanine Aminotransferase (ALT/SGPT) 33 U/L (14-59) 30 U/L (14-59) Alkaline Phosphatase 117 U/L (46-116) 110 U/L (46-116) Total Protein 8.3 g/dL (6.4-8.2) 7.9 g/dL (6.4-8.2) Albumin 3.0 g/dL (3.4-5.0) 2.8 g/dL (3.4-5.0) Albumin/Globulin Ratio 0.6 (1.0-1.7) 0.5 (1.0-1.7) Lipase 281 U/L (73-393) Glucose (Fingerstick) 195 mg/dL (70-99) Test 11/06/18 08:00 11/06/18 12:02 Glucose (Fingerstick) 138 mg/dL (70-99) 168 mg/dL (70-99) Signs of iron deficiency on CBC, but otherwise nothing alarming. Allergies: Coded Allergies: No Known Drug Allergies (Unverified , 11/05/18) Medications: Current Medications Medications (Trade) Dose Ordered Sig/Arie Route PRN Reason Start Time Stop Time Status Last Admin Dose Admin Sodium Chloride 1,000 ml @ 1,000 mls/hr 1X ONCE IV 11/05/18 16:15 11/05/18 17:14 DC 11/05/18 16:28 Iohexol (Omnipaque 300 Mg/ml) 60 ml 1X ONCE IV 11/05/18 16:45 11/05/18 16:46 DC 11/05/18 16:54 Dicyclomine HCl (Bentyl) 20 mg 1X ONCE IM 11/05/18 17:15 11/05/18 17:16 DC 11/05/18 17:28 Magnesium Sulfate 50 ml @ 25 mls/hr 1X ONCE IV 11/05/18 18:00 11/05/18 19:59 DC 11/05/18 19:22 Metronidazole 100 ml @ 100 mls/hr 1X ONCE IV 11/05/18 18:00 11/05/18 18:59 DC 11/05/18 19:04 Ciprofloxacin/ Dextrose 200 ml @ 200 mls/hr 1X ONCE IV 11/05/18 18:00 11/05/18 18:59 DC 11/05/18 20:33 Bupropion HCl (Wellbutrin Xl) 150 mg DAILY PO 11/06/18 09:00 11/06/18 09:16 Duloxetine HCl (Cymbalta) 30 mg DAILY PO 11/06/18 09:00 11/06/18 09:13 Ferrous Sulfate (Feosol) 325 mg DAILY PO 11/06/18 09:00 11/06/18 09:13 Insulin Glargine (Lantus) 52 units QHS SQ 11/05/18 22:00 11/05/18 22:26 Sertraline HCl (Zoloft) 50 mg DAILY PO 11/06/18 09:00 11/06/18 09:16 Insulin Human Lispro (HumaLOG) 24 units TIDWMEALS SQ 11/06/18 08:00 11/06/18 12:30 Lisinopril (Prinivil) 10 mg DAILY PO 11/06/18 09:00 11/06/18 09:16 Magnesium Oxide (Magnesium Oxide) 400 mg DAILY PO 11/06/18 09:00 11/06/18 09:16 Pantoprazole Sodium (Protonix) 40 mg DAILYAC PO 11/06/18 07:30 11/06/18 09:16 Imaging: Imaging: ON CT: CT ABD PELV W/ IV CONTRST ONLY Indication: Right lower abdominal pain. Exposure: One or more of the following individualized dose reduction techniques were utilized for this examination: 1. Automated exposure control 2. Adjustment of the mA and/or kV according to patient size 3. Use of iterative reconstruction technique. Technique: Intravenous contrast was given. No oral contrast per request. Comparison: November 15, 2017 and November 09, 2017. FINDINGS: Lung bases are clear. Liver is not enlarged. Spleen is mildly enlarged about 13 cm. Pancreas appears unremarkable. No evidence of adrenal mass. Kidneys demonstrate symmetric enhancement without evidence of hydronephrosis or mass. No calcified gallstone. The aorta is nonaneurysmal. Mildly enlarged lymph nodes are seen in the portal region and proximal aortocaval region, overall similar to the previous exam. Small hiatal hernia. No significant small bowel distention. Circumferential rectal wall thickening. Colonic diverticulosis. Wall thickening of the entire colon. Pericolonic inflammatory stranding, particularly around the distal transverse colon, descending colon and proximal sigmoid colon. No evidence of pneumoperitoneum or ascites. Urinary bladder appears unremarkable, incompletely distended. Small and deformed sacrum again identified. Exostosis arising from the inferior right iliac bone is stable. No evidence of aggressive bone destruction or acute fracture. IMPRESSION: 1. Diffuse colonic and rectal wall thickening. Associated pericolonic fatty stranding, greatest at the distal transverse, descending and proximal sigmoid colon. Findings are most compatible with colitis and proctitis. This could be secondary to diverticulitis. 2. Mild splenomegaly appears similar. Electronically signed by: Corey Renner MD (11/05/2018 5:22 PM) [id number] PE: GEN: NAD HEENT: Atraumatic, PERRLA LUNGS: CTAB HEART: RRR, no murmurs ABD: NABS, S/ND/diffuse mild LQ tenderness, no masses EXTREMITY: No edema SKIN: No rashes, no jaundice NEURO/PSYCH: A & O �3 A/P: A/P: IMP: Transient abdominal pain. Now seems better. No clear etiology, toxic? History not compatible with "colitis" as not really diarrhea. History and imaging not really suggestive of diverticulitis either. GERD with Ryan's; in need of surveillance. NAFLD Questionable h/o prior HBV. No evidence for persistent chronic hepatitis. Diverticulosis. H/o colon polyps, a bit overdue for surveillance. REC: OK with me to try diet and advance as tolerated. Keep on PPI chronically. Unclear needs antibiotics; consider stopping and observe. To call office to get colonoscopy/EGD scheduled after discharge; gave business card and will have office call. Other pending. Thanks. COREY FOSTER MD Nov 06, 2018 13:10
[2018-11-06] MEDS: CIPROFLOXACIN 400MG PREMIX 200 ML IV SCH ×2 (13:12→21:20)
[2018-11-06 15:59] VITALS: BP 110/42
[2018-11-06 19:00] VITALS: BP 120/62
[2018-11-06] MEDS: INSULIN GLARGINE 300 UNITS/3 ML INSULN.PEN. SQ SCH (21:00)
[2018-11-06] MEDS: ATORVASTATIN CALCIUM 40 MG TABLET. PO SCH (21:21)
[2018-11-06 23:00] VITALS: BP 132/60
[2018-11-07 03:31] VITALS: BP 116/56
[2018-11-07 04:21] LABS: BASO % 1 % (0-3); EOS # 0.1 x10^3/uL (0.0-0.7); EOS % 3 % (0-3); HEMATOCRIT 31.5 % (36.0-47.0); HEMOGLOBIN 9.9 g/dL (12.0-15.5); LYMPH # 1.4 x10^3/uL (1.0-4.8); LYMPH % 30 % (24-48); MEAN CORPUSCULAR HEMOGLOBIN 22 pg (25-35); MEAN CORPUSCULAR HGB CONC 31 g/dL (31-37); MEAN CORPUSCULAR VOLUME 71 fL (79-100); MONO # 0.4 x10^3/uL (0.0-1.1); MONO % 9 % (0-9); NEUT # 2.8 x10^3/uL (1.8-7.7); NEUT % 58 % (31-73); PLATELET COUNT 272 x10^3/uL (140-400); RED BLOOD COUNT 4.41 x10^6/uL (3.50-5.40); RED CELL DISTRIBUTION WIDTH 19.4 % (11.5-14.5); WHITE BLOOD COUNT 4.8 x10^3/uL (4.0-11.0)
[2018-11-07 04:46] LABS: ALBUMIN 2.7 g/dL (3.4-5.0); ALBUMIN/GLOBULIN RATIO 0.5 (1.0-1.7); CALCIUM 9.2 mg/dL (8.5-10.1); CREATININE 0.8 mg/dL (0.6-1.0); GFR 74.2; TOTAL BILIRUBIN 0.2 mg/dL (0.2-1.0); TOTAL PROTEIN 7.7 g/dL (6.4-8.2)
[2018-11-07 07:00] VITALS: BP 102/46
[2018-11-07] MEDS: buPROPion XL 150 MG TAB.ER.24H. PO SCH (07:51)
[2018-11-07] MEDS: MAGNESIUM OXIDE 400 MG TABLET PO SCH (07:52)
[2018-11-07] MEDS: FERROUS SULFATE 325 MG TABLET. PO SCH (07:52)
[2018-11-07] MEDS: PANTOPRAZOLE 40 MG TABLET.DR. PO SCH (07:52)
[2018-11-07] MEDS: DULoxetine HCL 30 MG CAPSULE.DR PO SCH (07:52)
[2018-11-07] MEDS: SERTRALINE 50 MG TABLET. PO SCH (07:53)
[2018-11-07] MEDS: CIPROFLOXACIN 400MG PREMIX 200 ML IV SCH ×2 (07:54→20:52)
[2018-11-07] MEDS: LISINOPRIL 10 MG TABLET PO SCH (08:06)
[2018-11-07] MEDS: INSULIN LISPRO 300 UNITS/3 ML INSULN.PEN. SQ SCH ×3 (08:15→17:18)
[2018-11-07 10:58] VITALS: BP 120/59
--- NOTE | 2018-11-07 13:22 | PDOC ---
[employer] PROGRESS NOTE Chief Complaint Chief Complaint Abdominal pain with colitis and/or diverticulitis History of Present Illness History of Present Illness Patient seen and examined I reviewed her CAT scan Review chart Discussed with RN Vitals/I&O Vitals/I&O: Vital Signs Date Time Temp Pulse Resp B/P (MAP) Pulse Ox O2 Delivery O2 Flow Rate FiO2 11/07/18 10:58 98.2 75 20 120/59 (79) 96 Room Air 98.2 I & O 11/06/18 11/06/18 11/07/18 15:00 23:00 07:00 Intake Total 500 ml Balance 500 ml Physical Exam General: Alert, Oriented X3, Cooperative Heart: Regular rate, Normal S1 Lungs: Clear Abdomen: Normal bowel sounds, Soft Extremities: No clubbing, No cyanosis Skin: No rashes, No breakdown Labs Labs: Laboratory Tests Test 11/06/18 16:19 11/06/18 21:03 11/07/18 03:35 11/07/18 07:21 Glucose (Fingerstick) 128 mg/dL (70-99) 86 mg/dL (70-99) 170 mg/dL (70-99) White Blood Count 4.8 x10^3/uL (4.0-11.0) Red Blood Count 4.41 x10^6/uL (3.50-5.40) Hemoglobin 9.9 g/dL (12.0-15.5) Hematocrit 31.5 % (36.0-47.0) Mean Corpuscular Volume 71 fL (79-100) Mean Corpuscular Hemoglobin 22 pg (25-35) Mean Corpuscular Hemoglobin Concent 31 g/dL (31-37) Red Cell Distribution Width 19.4 % (11.5-14.5) Platelet Count 272 x10^3/uL (140-400) Neutrophils (%) (Auto) 58 % (31-73) Lymphocytes (%) (Auto) 30 % (24-48) Monocytes (%) (Auto) 9 % (0-9) Eosinophils (%) (Auto) 3 % (0-3) Basophils (%) (Auto) 1 % (0-3) Neutrophils # (Auto) 2.8 x10^3/uL (1.8-7.7) Lymphocytes # (Auto) 1.4 x10^3/uL (1.0-4.8) Monocytes # (Auto) 0.4 x10^3/uL (0.0-1.1) Eosinophils # (Auto) 0.1 x10^3/uL (0.0-0.7) Basophils # (Auto) 0.0 x10^3/uL (0.0-0.2) Sodium Level 139 mmol/L (136-145) Potassium Level 4.0 mmol/L (3.5-5.1) Chloride Level 103 mmol/L (98-107) Carbon Dioxide Level 27 mmol/L (21-32) Anion Gap 9 (6-14) Blood Urea Nitrogen 8 mg/dL (7-20) Creatinine 0.8 mg/dL (0.6-1.0) Estimated GFR (Cockcroft-Gault) 74.2 BUN/Creatinine Ratio 10 (6-20) Glucose Level 195 mg/dL (70-99) Calcium Level 9.2 mg/dL (8.5-10.1) Total Bilirubin 0.2 mg/dL (0.2-1.0) Aspartate Amino Transf (AST/SGOT) 29 U/L (15-37) Alanine Aminotransferase (ALT/SGPT) 29 U/L (14-59) Alkaline Phosphatase 107 U/L (46-116) Total Protein 7.7 g/dL (6.4-8.2) Albumin 2.7 g/dL (3.4-5.0) Albumin/Globulin Ratio 0.5 (1.0-1.7) Test 11/07/18 11:44 Glucose (Fingerstick) 119 mg/dL (70-99) Review of Systems Review of Systems: No new complaints Assessment and Plan Assessmemt and Plan Problems Medical Problems: (1) Abdominal pain Status: Acute (2) Diverticulitis Status: Acute Colitis and/or diverticulitis Plan IV antibiotics IV fluids GI is following Hope to discharge in a.m. if stable DVT prophylaxis Comment Review of Relevant I have reviewed the following items malorie (where applicable) has been applied. Medications: Current Medications Medications (Trade) Dose Ordered Sig/Arie Route PRN Reason Start Time Stop Time Status Last Admin Dose Admin Atorvastatin Calcium (Lipitor) 40 mg HS PO 11/06/18 21:00 11/06/18 21:21 LUANN ARITA III DO Nov 07, 2018 13:22
--- NOTE | 2018-11-07 13:55 | PDOC ---
G [facility] PROGRESS NOTE Subjective More upper abdominal bloating today. LQ pain seems negligible. Tolerating regular diet. Physical Exam Lungs clear. RRR Abdomen soft, not distended. Mild diffuse upper abdominal tenderness. Nil LQ tenderness. Review of Relevant I have reviewed the following items malorie (where applicable) has been applied. Labs Laboratory Tests Test 11/05/18 15:53 11/05/18 15:59 11/05/18 20:58 11/06/18 04:20 Urine Collection Type Void Urine Color Yellow Urine Clarity Clear Urine pH 5.5 Urine Specific [place] 1.025 Urine Protein 30 mg/dL (NEG-TRACE) Urine Glucose (UA) 500 mg/dL (NEG) Urine Ketones (Stick) Negative mg/dL (NEG) Urine Blood Negative (NEG) Urine Nitrite Negative (NEG) Urine Bilirubin Negative (NEG) Urine Urobilinogen Dipstick 0.2 mg/dL (0.2 mg/dL) Urine Leukocyte Esterase Negative (NEG) Urine RBC 0 /HPF (0-2) Urine WBC Occ /HPF (0-4) Urine Squamous Epithelial Cells Many /LPF Urine Bacteria Many /HPF (0-FEW) Urine Mucus Marked /LPF White Blood Count 5.0 x10^3/uL (4.0-11.0) 5.6 x10^3/uL (4.0-11.0) Red Blood Count 4.64 x10^6/uL (3.50-5.40) 4.40 x10^6/uL (3.50-5.40) Hemoglobin 10.5 g/dL (12.0-15.5) 9.9 g/dL (12.0-15.5) Hematocrit 33.0 % (36.0-47.0) 31.2 % (36.0-47.0) Mean Corpuscular Volume 71 fL (79-100) 71 fL (79-100) Mean Corpuscular Hemoglobin 23 pg (25-35) 22 pg (25-35) Mean Corpuscular Hemoglobin Concent 32 g/dL (31-37) 32 g/dL (31-37) Red Cell Distribution Width 19.8 % (11.5-14.5) 19.4 % (11.5-14.5) Platelet Count 293 x10^3/uL (140-400) 273 x10^3/uL (140-400) Neutrophils (%) (Auto) 68 % (31-73) 64 % (31-73) Lymphocytes (%) (Auto) 24 % (24-48) 25 % (24-48) Monocytes (%) (Auto) 7 % (0-9) 9 % (0-9) Eosinophils (%) (Auto) 1 % (0-3) 2 % (0-3) Basophils (%) (Auto) 0 % (0-3) 0 % (0-3) Neutrophils # (Auto) 3.4 x10^3/uL (1.8-7.7) 3.6 x10^3/uL (1.8-7.7) Lymphocytes # (Auto) 1.2 x10^3/uL (1.0-4.8) 1.4 x10^3/uL (1.0-4.8) Monocytes # (Auto) 0.3 x10^3/uL (0.0-1.1) 0.5 x10^3/uL (0.0-1.1) Eosinophils # (Auto) 0.1 x10^3/uL (0.0-0.7) 0.1 x10^3/uL (0.0-0.7) Basophils # (Auto) 0.0 x10^3/uL (0.0-0.2) 0.0 x10^3/uL (0.0-0.2) Platelet Estimate Adequate (ADEQUATE) Hypochromasia Mod Anisocytosis Mod Microcytosis Mod Sodium Level 134 mmol/L (136-145) 141 mmol/L (136-145) Potassium Level 3.7 mmol/L (3.5-5.1) 3.7 mmol/L (3.5-5.1) Chloride Level 98 mmol/L (98-107) 103 mmol/L (98-107) Carbon Dioxide Level 27 mmol/L (21-32) 29 mmol/L (21-32) Anion Gap 9 (6-14) 9 (6-14) Blood Urea Nitrogen 11 mg/dL (7-20) 8 mg/dL (7-20) Creatinine 1.0 mg/dL (0.6-1.0) 0.8 mg/dL (0.6-1.0) Estimated GFR (Cockcroft-Gault) 57.4 74.2 BUN/Creatinine Ratio 11 (6-20) 10 (6-20) Glucose Level 281 mg/dL (70-99) 105 mg/dL (70-99) Calcium Level 9.4 mg/dL (8.5-10.1) 9.2 mg/dL (8.5-10.1) Magnesium Level 1.5 mg/dL (1.8-2.4) Total Bilirubin 0.2 mg/dL (0.2-1.0) 0.2 mg/dL (0.2-1.0) Aspartate Amino Transf (AST/SGOT) 34 U/L (15-37) 31 U/L (15-37) Alanine Aminotransferase (ALT/SGPT) 33 U/L (14-59) 30 U/L (14-59) Alkaline Phosphatase 117 U/L (46-116) 110 U/L (46-116) Total Protein 8.3 g/dL (6.4-8.2) 7.9 g/dL (6.4-8.2) Albumin 3.0 g/dL (3.4-5.0) 2.8 g/dL (3.4-5.0) Albumin/Globulin Ratio 0.6 (1.0-1.7) 0.5 (1.0-1.7) Lipase 281 U/L (73-393) Glucose (Fingerstick) 195 mg/dL (70-99) Test 11/06/18 08:00 11/06/18 12:02 11/06/18 16:19 11/06/18 21:03 Glucose (Fingerstick) 138 mg/dL (70-99) 168 mg/dL (70-99) 128 mg/dL (70-99) 86 mg/dL (70-99) Test 11/07/18 03:35 11/07/18 07:21 11/07/18 11:44 White Blood Count 4.8 x10^3/uL (4.0-11.0) Red Blood Count 4.41 x10^6/uL (3.50-5.40) Hemoglobin 9.9 g/dL (12.0-15.5) Hematocrit 31.5 % (36.0-47.0) Mean Corpuscular Volume 71 fL (79-100) Mean Corpuscular Hemoglobin 22 pg (25-35) Mean Corpuscular Hemoglobin Concent 31 g/dL (31-37) Red Cell Distribution Width 19.4 % (11.5-14.5) Platelet Count 272 x10^3/uL (140-400) Neutrophils (%) (Auto) 58 % (31-73) Lymphocytes (%) (Auto) 30 % (24-48) Monocytes (%) (Auto) 9 % (0-9) Eosinophils (%) (Auto) 3 % (0-3) Basophils (%) (Auto) 1 % (0-3) Neutrophils # (Auto) 2.8 x10^3/uL (1.8-7.7) Lymphocytes # (Auto) 1.4 x10^3/uL (1.0-4.8) Monocytes # (Auto) 0.4 x10^3/uL (0.0-1.1) Eosinophils # (Auto) 0.1 x10^3/uL (0.0-0.7) Basophils # (Auto) 0.0 x10^3/uL (0.0-0.2) Sodium Level 139 mmol/L (136-145) Potassium Level 4.0 mmol/L (3.5-5.1) Chloride Level 103 mmol/L (98-107) Carbon Dioxide Level 27 mmol/L (21-32) Anion Gap 9 (6-14) Blood Urea Nitrogen 8 mg/dL (7-20) Creatinine 0.8 mg/dL (0.6-1.0) Estimated GFR (Cockcroft-Gault) 74.2 BUN/Creatinine Ratio 10 (6-20) Glucose Level 195 mg/dL (70-99) Calcium Level 9.2 mg/dL (8.5-10.1) Total Bilirubin 0.2 mg/dL (0.2-1.0) Aspartate Amino Transf (AST/SGOT) 29 U/L (15-37) Alanine Aminotransferase (ALT/SGPT) 29 U/L (14-59) Alkaline Phosphatase 107 U/L (46-116) Total Protein 7.7 g/dL (6.4-8.2) Albumin 2.7 g/dL (3.4-5.0) Albumin/Globulin Ratio 0.5 (1.0-1.7) Glucose (Fingerstick) 170 mg/dL (70-99) 119 mg/dL (70-99) Laboratory Tests Test 11/06/18 16:19 11/06/18 21:03 11/07/18 03:35 11/07/18 07:21 Glucose (Fingerstick) 128 mg/dL (70-99) 86 mg/dL (70-99) 170 mg/dL (70-99) White Blood Count 4.8 x10^3/uL (4.0-11.0) Red Blood Count 4.41 x10^6/uL (3.50-5.40) Hemoglobin 9.9 g/dL (12.0-15.5) Hematocrit 31.5 % (36.0-47.0) Mean Corpuscular Volume 71 fL (79-100) Mean Corpuscular Hemoglobin 22 pg (25-35) Mean Corpuscular Hemoglobin Concent 31 g/dL (31-37) Red Cell Distribution Width 19.4 % (11.5-14.5) Platelet Count 272 x10^3/uL (140-400) Neutrophils (%) (Auto) 58 % (31-73) Lymphocytes (%) (Auto) 30 % (24-48) Monocytes (%) (Auto) 9 % (0-9) Eosinophils (%) (Auto) 3 % (0-3) Basophils (%) (Auto) 1 % (0-3) Neutrophils # (Auto) 2.8 x10^3/uL (1.8-7.7) Lymphocytes # (Auto) 1.4 x10^3/uL (1.0-4.8) Monocytes # (Auto) 0.4 x10^3/uL (0.0-1.1) Eosinophils # (Auto) 0.1 x10^3/uL (0.0-0.7) Basophils # (Auto) 0.0 x10^3/uL (0.0-0.2) Sodium Level 139 mmol/L (136-145) Potassium Level 4.0 mmol/L (3.5-5.1) Chloride Level 103 mmol/L (98-107) Carbon Dioxide Level 27 mmol/L (21-32) Anion Gap 9 (6-14) Blood Urea Nitrogen 8 mg/dL (7-20) Creatinine 0.8 mg/dL (0.6-1.0) Estimated GFR (Cockcroft-Gault) 74.2 BUN/Creatinine Ratio 10 (6-20) Glucose Level 195 mg/dL (70-99) Calcium Level 9.2 mg/dL (8.5-10.1) Total Bilirubin 0.2 mg/dL (0.2-1.0) Aspartate Amino Transf (AST/SGOT) 29 U/L (15-37) Alanine Aminotransferase (ALT/SGPT) 29 U/L (14-59) Alkaline Phosphatase 107 U/L (46-116) Total Protein 7.7 g/dL (6.4-8.2) Albumin 2.7 g/dL (3.4-5.0) Albumin/Globulin Ratio 0.5 (1.0-1.7) Test 11/07/18 11:44 Glucose (Fingerstick) 119 mg/dL (70-99) Vitals/I & O Vital Sign - Last 24 Hours 11/06/18 11/06/18 11/06/18 11/06/18 15:59 19:00 19:30 23:00 Temp 98.2 98.9 98.0 98.2 98.9 98.0 Pulse 75 82 75 Resp 18 20 20 B/P (MAP) 110/42 (64) 120/62 (81) 132/60 (84) Pulse Ox 95 97 97 O2 Delivery Room Air Room Air Room Air Room Air 11/07/18 11/07/18 11/07/18 11/07/18 03:31 07:00 08:06 08:30 Temp 98.1 97.4 98.1 97.4 Pulse 73 67 67 Resp 20 20 B/P (MAP) 116/56 (76) 102/46 (64) 102/46 Pulse Ox 98 96 O2 Delivery Room Air Room Air Room Air 11/07/18 10:58 Temp 98.2 98.2 Pulse 75 Resp 20 B/P (MAP) 120/59 (79) Pulse Ox 96 O2 Delivery Room Air Intake and Output 11/06/18 11/06/18 11/07/18 14:59 22:59 06:59 Intake Total 500 ml Balance 500 ml Problem List Problems Medical Problems: (1) Abdominal pain Status: Acute (2) Diverticulitis Status: Acute Assessment Presenting syndrome seems essentially resolved. Viral? Really not c/w diverticulitis or real colitis. GERD/Ryan's--likely accounts for some of the pc bloating today with increase in diet. Plan of Care: Continue current Tx, Mgmt Plan of Care Note Home at your discretion on chronic PPI. Ambivalent re: any antibiotics. Has info to call office for endoscopies in 4 weeks. HAJA FOSTER MD Nov 07, 2018 13:55
[2018-11-07 15:00] VITALS: BP 117/52
[2018-11-07 19:00] VITALS: BP 131/64
[2018-11-07] MEDS: ATORVASTATIN CALCIUM 40 MG TABLET. PO SCH (20:52)
[2018-11-07] MEDS: INSULIN GLARGINE 300 UNITS/3 ML INSULN.PEN. SQ SCH (20:59)
[2018-11-07 23:00] VITALS: BP 131/54
[2018-11-08 04:24] VITALS: BP 129/56
[2018-11-08 06:28] LABS: ALBUMIN 2.9 g/dL (3.4-5.0); ALBUMIN/GLOBULIN RATIO 0.5 (1.0-1.7); CALCIUM 9.4 mg/dL (8.5-10.1); CREATININE 0.9 mg/dL (0.6-1.0); GFR 64.8; POTASSIUM 4.5 mmol/L (3.5-5.1); TOTAL BILIRUBIN 0.2 mg/dL (0.2-1.0); TOTAL PROTEIN 8.3 g/dL (6.4-8.2)
[2018-11-08 06:36] LABS: BASO % 1 % (0-3); EOS # 0.1 x10^3/uL (0.0-0.7); EOS % 3 % (0-3); HEMATOCRIT 33.2 % (36.0-47.0); HEMOGLOBIN 10.4 g/dL (12.0-15.5); LYMPH # 1.7 x10^3/uL (1.0-4.8); LYMPH % 34 % (24-48); MEAN CORPUSCULAR HEMOGLOBIN 22 pg (25-35); MEAN CORPUSCULAR HGB CONC 31 g/dL (31-37); MEAN CORPUSCULAR VOLUME 71 fL (79-100); MONO # 0.4 x10^3/uL (0.0-1.1); MONO % 8 % (0-9); NEUT # 2.7 x10^3/uL (1.8-7.7); NEUT % 55 % (31-73); PLATELET COUNT 289 x10^3/uL (140-400); RED BLOOD COUNT 4.66 x10^6/uL (3.50-5.40); RED CELL DISTRIBUTION WIDTH 19.4 % (11.5-14.5)
[2018-11-08 07:00] VITALS: BP 124/55
[2018-11-08] MEDS ORDERED: metFORMIN 500 MG TABLET PO SCH (08:00)
[2018-11-08] MEDS: PANTOPRAZOLE 40 MG TABLET.DR. PO SCH (08:23)
[2018-11-08] MEDS: buPROPion XL 150 MG TAB.ER.24H. PO SCH (08:23)
[2018-11-08] MEDS: SERTRALINE 50 MG TABLET. PO SCH (08:23)
[2018-11-08] MEDS: FERROUS SULFATE 325 MG TABLET. PO SCH (08:23)
[2018-11-08] MEDS: MAGNESIUM OXIDE 400 MG TABLET PO SCH (08:24)
[2018-11-08] MEDS: LISINOPRIL 10 MG TABLET PO SCH (08:24)
[2018-11-08] MEDS: CIPROFLOXACIN 400MG PREMIX 200 ML IV SCH (08:26)
[2018-11-08] MEDS: INSULIN LISPRO 300 UNITS/3 ML INSULN.PEN. SQ SCH (08:27)
[2018-11-08] MEDS: DULoxetine HCL 30 MG CAPSULE.DR PO SCH (08:28)
[2018-11-08 11:00] VITALS: BP 120/57
--- NOTE | 2018-11-08 11:13 | DS ---
DATE OF DISCHARGE: 11/08/2018 ADMISSION DIAGNOSIS: Diverticulitis. DISCHARGE DIAGNOSIS: Resolving diverticulitis. HOSPITAL COURSE: The patient is a pleasant 58-year-old female who presented with diverticulitis. She was admitted. We gave her IV Flagyl, IV Levaquin, consulted GI. Over the past few days she has returned to her baseline. I saw her this morning. Her heart tones were normal. Her lungs were clear. She was up walking. We plan to discharge with close outpatient followup. DISPOSITION: Home. ACTIVITY: As tolerated. DIET: Low sodium. MEDICATIONS: I gave her prescriptions for Cipro and Flagyl and will continue her home meds. TOTAL TIME: 33 minutes. LUANN ARITA DO DR: SOTO/stoney JOB#: [id number] / [id number]
--- NOTE | 2018-11-08 11:48 | NUR ---
pt discharged home with self care. daughter in room to provide transportation. medications and follow up reviewed. pt discharged home via private vehicle. stable upon DC
== END 2018-11-08 11:35 | disposition home or self-care (01) | DRG 392 ==
LOC: ER 14:36 → 5 SOUTH 17:50
PROVIDERS: ADMIT Internal Medicine; ATTEND Internal Medicine
DX: K57.92 Diverticulitis of intestine, part unspecified, without perforation or abscess without bleeding (principal); D50.9 Iron deficiency anemia, unspecified; E11.9 Type 2 diabetes mellitus without complications; E78.00 Pure hypercholesterolemia, unspecified; G43.909 Migraine, unspecified, not intractable, without status migrainosus; E78.5 Hyperlipidemia, unspecified; J40 Bronchitis, not specified as acute or chronic; K21.9 Gastro-esophageal reflux disease without esophagitis; K22.70 Barrett's esophagus without dysplasia; Z80.0 Family history of malignant neoplasm of digestive organs; Z82.3 Family history of stroke; Z82.49 Family history of ischemic heart disease and other diseases of the circulatory system; Z85.038 Personal history of other malignant neoplasm of large intestine; Z83.3 Family history of diabetes mellitus; Z85.3 Personal history of malignant neoplasm of breast; Z86.010 Personal history of colon polyps; Z90.13 Acquired absence of bilateral breasts and nipples; Z90.710 Acquired absence of both cervix and uterus; F32.9 Major depressive disorder, single episode, unspecified
CPT/HCPCS: 36415; 74177; 80053; 81001; 82962; 83690; 83735; 85025; 87086; 96361; 96365; 96372; J0500; J0744; J1815; J3475; J3490; J7030; Q9967; 99285-25

== ENCOUNTER 2019-05-05 15:08 | Emergency (ER) | payer OTHER ==
[~2019-05-05] VITALS: Ht 165.1 cm; Wt 72.6 kg
[~2019-05-05 15:08] MED LIST changes: +BUPR150T6 PO; +DICY20TA3 PO; +GABA-585 PO; +MAGN400C PO; +MECL-75 PO; -MECL25TA3 PO; +OMEP40CA45 PO; -OMEP40CA5 PO; +ONDA4TAB12 PO; +VITA200C PO
[2019-05-05 15:58] VITALS: BP 157/78
--- NOTE | 2019-05-05 16:40 | RAD ---
Examination: 2 views of the left shoulder HISTORY: History of left shoulder pain COMPARISON: None available. FINDINGS: The humerus head is within the glenoid. Mild joint space loss identified in the glenohumeral joint, acromioclavicular joint. There is no acute fracture identified. IMPRESSION: 1. No acute osseous findings. 2. Mild degenerative changes glenohumeral joint, acromioclavicular joint. Electronically signed by: Niraj Eddy MD (05/05/2019 4:38 PM) [place] [id number]
--- NOTE | 2019-05-05 17:18 | PHYS DOC ---
Past Medical History Past Medical History: Diabetes-Type II, Diverticulitis, GERD, High Cholesterol, Pneumonia, Other Additional Past Medical Histor: Ryan's esophogus, Sepsis, Vertigo Past Surgical History: , Hysterectomy, Other Additional Past Surgical Histo: bilateral mastectomy, removal of pelvic tumor Alcohol Use: None Drug Use: None Adult General Chief Complaint Chief Complaint: SHOULDER INJURY HPI HPI Patient is a 59 year old female with history of diabetes, hypertension, high cholesterol, who presents to the ED today complaining of 7 out of 10 sharp intermittent left shoulder pain worse on range of motion that has been going on for 4 months. Patient denies any known injury. She reports she has been seen by the PCP as well as a chiropractor. She reports the pain has continued. She is requesting an x-ray to make sure nothing is wrong. Review of Systems Review of Systems Constitutional: Denies fever or chills [] : Denies dysuria or hematuria [] Musculoskeletal: Reports left shoulder pain Integument: Denies rash or skin lesions [] Neurologic: Denies headache, focal weakness or sensory changes [] All other systems were reviewed and found to be within normal limits, except as documented in this note. Allergies Allergies Allergies Coded Allergies Type Severity Reaction Last Updated Verified No Known Drug Allergies 11/05/18 No Physical Exam Physical Exam Constitutional: Well developed, well nourished, no acute distress, non-toxic appearance. [] Skin: Warm, dry, no erythema, no rash. [] Back: No tenderness, no CVA tenderness. [] Extremities: Left shoulder with no obvious deformity, slight tenderness on palpation of the left anterior shoulder. Full range of motion to the left shoulder and left upper extremity. Adequate radial, medial, ulnar sensation to the left upper extremity. +2 left radial pulse. Cap refill symptoms also left up per extremity. Neurologic: Alert and oriented X 3, normal motor function, normal sensory function, no focal deficits noted. [] Psychologic: Affect normal, judgement normal, mood normal. [] Current Patient Data Vital Signs Vital Signs Date Time Temp Pulse Resp B/P (MAP) Pulse Ox O2 Delivery O2 Flow Rate FiO2 05/05/19 15:58 98.2 85 14 157/78 (104) 97 Room Air 98.2 EKG EKG [] Radiology/Procedures Radiology/Procedures []PROCEDURE: SHOULDER 2+V LEFT Examination: 2 views of the left shoulder HISTORY: History of left shoulder pain COMPARISON: None available. FINDINGS: The humerus head is within the glenoid. Mild joint space loss identified in the glenohumeral joint, acromioclavicular joint. There is no acute fracture identified. IMPRESSION: 1. No acute osseous findings. 2. Mild degenerative changes glenohumeral joint, acromioclavicular joint. Electronically signed by: Niraj Eddy MD (05/05/2019 4:38 PM) [facility] [id number] DICTATED and SIGNED BY: NIRAJ EDDY MD DATE: 05/05/19 0638 Course & Med Decision Making Course & Med Decision Making Pertinent Labs and Imaging studies reviewed. (See chart for details) This is a 59-year-old female patient presenting to the ED today with left shoulder pain for 4 months. Left shoulder x-rays are negative for any acute findings, noted for DJD. Discharged to home. Follow-up with orthopedic doctor in one week. Dragon Disclaimer Dragon Disclaimer This electronic medical record was generated, in whole or in part, using a voice recognition dictation system. Departure Departure Impression: Primary Impression: DJD of left shoulder Additional Impression: Left shoulder pain Disposition: HOME, SELF-CARE Condition: STABLE Referrals: DINORAH STEWART MD (PCP) MILY PERRY MD follow up in 1-2 weeks Patient Instructions: Arthritis, Degenerative-Brief, Shoulder Pain, [id number] Additional Instructions: You were evaluated in the emergency room for left shoulder pain. Your left shoulder x-rays were negative for any acute findings, you have arthritis to the shoulder. We highly recommend you follow-up with the provided orthopedic doctor in 1-2 weeks. Scripts Gabapentin (GABAPENTIN) 300 Mg Capsule 300 MG PO TID PRN for PAIN, #20 CAP Prov: EDITHUNGAYVONNE RIBBON WINDER 05/05/19 Diclofenac Sodium (VOLTAREN) 100 Gm Gel..gram. 1 GM TP QID for pain for 30 Days, #1 EACH 0 Refills apply to affected area(s) Prov: YVONNE HERNÁNDEZ RIBBON WINDER 05/05/19 Cyclobenzaprine Hcl (CYCLOBENZAPRINE HCL) 10 Mg Tablet 1 TAB PO TID, #30 TAB Prov: YVONNE HERNÁNDEZ APRN 05/05/19 Problem Qualifiers Primary Impression: DJD of left shoulder Osteoarthritis type: primary Qualified Codes: M19.012 - Primary osteoarthritis, left shoulder Additional Impression: Left shoulder pain Chronicity: acute Qualified Codes: M25.512 - Pain in left shoulder YVONNE HERNÁNDEZ APRN May 05, 2019 17:17
[2019-05-05] MEDS ORDERED: CYCL10TA2 PO (17:22)
[2019-05-05] MEDS ORDERED: GABA300C18 PO (17:22)
[2019-05-05] MEDS ORDERED: DICL100G18 TP (17:22)
== END 2019-05-05 17:37 | disposition home or self-care (01) ==
LOC: ER 15:08
DX: M25.512 Pain in left shoulder (principal); M19.012 Primary osteoarthritis, left shoulder; E11.9 Type 2 diabetes mellitus without complications; K21.9 Gastro-esophageal reflux disease without esophagitis; E78.00 Pure hypercholesterolemia, unspecified; K22.70 Barrett's esophagus without dysplasia
CPT/HCPCS: 73030; 99284

== ENCOUNTER 2019-05-12 14:24 | Emergency (ER) | payer OTHER ==
[~2019-05-12] VITALS: Ht 165.1 cm; Wt 72.6 kg
[~2019-05-12 14:24] MED LIST changes: +CYCL10TA2 PO; +DICL100G18 TP; +GABA300C18 PO
[2019-05-12 15:31] VITALS: BP 136/60
--- NOTE | 2019-05-12 16:22 | PHYS DOC ---
Past Medical History Past Medical History: Diabetes-Type II, Diverticulitis, GERD, High Cholesterol, Pneumonia, Other Additional Past Medical Histor: Ryan's esophogus, Sepsis, Vertigo Past Surgical History: , Hysterectomy, Other Additional Past Surgical Histo: bilateral mastectomy, removal of pelvic tumor Alcohol Use: None Drug Use: None Adult General Chief Complaint Chief Complaint: OTHER COMPLAINTS [facility] HPI Patient is a 59 year old female with history of diabetes type 2, high cholesterol, acid reflex, who presents to the ED today stating she has discovered this bumps on the back of her tongue that she's never seen before. Discovery was noted on Thursday. She is also complaining of dry mouth, she states she was started on Flexeril and gabapentin and is also on other medications and is concerned it could be making her mouth and dry. Symptoms began on Thursday as well. She was seen in the ED last week for shoulder pain. She stated she just came from the orthopedic doctor's office this afternoon and then came to the ED to be evaluated. Denies any difficulty swallowing, throat or tongue swelling. Review of Systems Review of Systems Constitutional: Denies fever or chills [] Eyes: Denies change in visual acuity, redness, or eye pain [] HENT: Reports bumps on the back of the tongue. Reports dry mouth. Denies nasal congestion or sore throat [] Respiratory: Denies cough or shortness of breath [] Cardiovascular: No additional information not addressed in HPI [] GI: Denies abdominal pain, nausea, vomiting, bloody stools or diarrhea [] : Denies dysuria or hematuria [] Musculoskeletal: Denies back pain or joint pain [] Integument: Denies rash or skin lesions [] Neurologic: Denies headache, focal weakness or sensory changes [] All other systems were reviewed and found to be within normal limits, except as documented in this note. Allergies Allergies Allergies Coded Allergies Type Severity Reaction Last Updated Verified No Known Drug Allergies 11/05/18 No Physical Exam Physical Exam Constitutional: Well developed, well nourished, no acute distress, non-toxic appearance. [] HENT: Normocephalic, atraumatic, bilateral external ears normal, oropharynx moist, no oral exudates, nose normal. [] Airway is open, area of concern has papillae which is normal anatomy of the tongue. Eyes: PERRLA, EOMI, conjunctiva normal, no discharge. [] Neck: Normal range of motion, no tenderness, supple, no stridor. [] Cardiovascular:Heart rate regular rhythm, no murmur [] Lungs & Thorax: Bilateral breath sounds clear to auscultation [] Abdomen: Bowel sounds normal, soft, no tenderness, no masses, no pulsatile masses. [] Skin: Warm, dry, no erythema, no rash. [] Back: No tenderness, no CVA tenderness. [] Extremities: No tenderness, no cyanosis, no clubbing, ROM intact, no edema. [] Neurologic: Alert and oriented X 3, normal motor function, normal sensory function, no focal deficits noted. [] Psychologic: Affect normal, judgement normal, mood normal. [] Current Patient Data Vital Signs Vital Signs Date Time Temp Pulse Resp B/P (MAP) Pulse Ox O2 Delivery O2 Flow Rate FiO2 05/12/19 15:31 98.1 88 16 136/60 (85) 98 Room Air 98.1 EKG EKG [] Radiology/Procedures Radiology/Procedures [] Course & Med Decision Making Course & Med Decision Making Pertinent Labs and Imaging studies reviewed. (See chart for details) This is a 59-year-old female presented to the ED today concerned about bumps on the back of her tongue that she just discovered today. On physical exam patient is noted to have normal anatomy-papillae, she was reassured, she requested a strep test which was negative. She is also complaining of dry mouth. Instructed to stop taking Flexeril and gabapentin if she feels that making her mouth dry. Instructed to push fluids and use [id number] none sugary candy to keep her mouth moisturized. Follow-up with primary care doctor in 1-2 weeks. Dragon Disclaimer Dragon Disclaimer This electronic medical record was generated, in whole or in part, using a voice recognition dictation system. Departure Departure Impression: Primary Impression: Dry mouth Disposition: 01 HOME, SELF-CARE Condition: IMPROVED Referrals: DINORAH STEWART MD (PCP) follow up in 1 week Additional Instructions: You were evaluated in the emergency room, and noted to have papillae, this is a normal anatomy for some people on the tongue. Your strep test is negative. If you feel the Flexeril and gabapentin are making your mouth dry you can stop taking them. You can also consider hydrating yourself as well as chewing on none sugary candy to keep your mouth moisturized. Follow-up with your own doctor in 1-2 weeks. YVONNE HERNÁNDEZ APRN May 12, 2019 16:22
== END 2019-05-12 16:28 | disposition home or self-care (01) ==
LOC: ER 14:24
DX: R68.2 Dry mouth, unspecified (principal); E11.9 Type 2 diabetes mellitus without complications; K21.9 Gastro-esophageal reflux disease without esophagitis; E78.00 Pure hypercholesterolemia, unspecified
CPT/HCPCS: 87070; 87880; 99283

== ENCOUNTER 2019-11-25 15:21 | Emergency (ER) | payer OTHER ==
[~2019-11-25] VITALS: Ht 165.1 cm; Wt 72.1 kg
[~2019-11-25 15:21] MED LIST changes: -DICL100G18 TP; +DICL100G54 TP
--- NOTE | 2019-11-25 16:35 | PHYS DOC ---
Past Medical History Past Medical History: Diabetes-Type II, Diverticulitis, GERD, High Cholesterol, Pneumonia, Other Additional Past Medical Histor: Ryan's esophogus, Sepsis, Vertigo, herniated disc Past Surgical History: , Hysterectomy, Other Additional Past Surgical Histo: bilateral mastectomy, removal of pelvic tumor Smoking Status: Never Smoker Alcohol Use: None Drug Use: None General Adult EDM: Chief Complaint: BACK PAIN - NO INJURY HPI: HPI: Patient is a 59 year old female who presents to the emergency department with bilateral lower back pain that radiates down bilateral legs that started when she woke up this morning. She denies any injury, loss of bowel or bladder control, saddle anesthesias, fever, or dysuria. Patient is able to bear weight and ambulate. Patient reports that she has bulging discs. She rates her pain 9 out of 10, it is worse with movement and worse with straight leg raise, she describes the pain as a sharp pain, pain does radiate down both legs she did not take anything for her pain today but last night she did take ibuprofen with little relief. She denies any numbness or tingling of her lower extremities. Review of Systems: Review of Systems: Constitutional: Denies fever or chills. [] GI: Denies abdominal pain, nausea, vomiting, or diarrhea. [] : Denies dysuria. [] Back: See HPI Musculoskeletal: See HPI Integument: Denies rash. [] Neurologic: Denies headache, focal weakness or sensory changes. [] Psychiatric: Denies depression or anxiety. [] Heart Score: Risk Factors: Risk Factors: DM, Current or recent (<one month) smoker, HTN, HLP, family history of CAD, obesity. Risk Scores: Score 0 - 3: 2.5% MACE over next 6 weeks - Discharge Home Score 4 - 6: 20.3% MACE over next 6 weeks - Admit for Clinical Observation Score 7 - 10: 72.7% MACE over next 6 weeks - Early Invasive Strategies Allergies: Allergies: Allergies Coded Allergies Type Severity Reaction Last Updated Verified No Known Drug Allergies 11/05/18 No Physical Exam: PE: Constitutional: Well developed, well nourished, no acute distress, non-toxic appearance. [] HENT: Normocephalic, atraumatic, bilateral external ears normal, nose normal. [] Eyes: PERRLA, EOMI, conjunctiva normal, no discharge. [] Neck: Normal range of motion, no stridor. [] Cardiovascular:Heart rate regular rhythm Lungs & Thorax: Respirations even and unlabored, no retractions, no respiratory distress Skin: Warm, dry, no erythema, no rash. [] Back: No bony spinal tenderness with palpation, bilateral paraspinal tenderness with palpation, bilateral lower back pain worsened with straight leg lift testing Extremities: No cyanosis, ROM intact, no edema. [] Neurologic: Alert and oriented X 3, no focal deficits noted. [] Psychologic: Affect normal, judgement normal, mood normal. [] Current Patient Data: Vital Signs: Vital Signs Date Time Temp Pulse Resp B/P (MAP) Pulse Ox O2 Delivery O2 Flow Rate FiO2 11/25/19 15:51 97.3 88 18 137/68 (91) 98 Room Air 97.3 EKG: EKG: [] Radiology/Procedures: Radiology/Procedures: PROCEDURE: CT LUMBAR SPINE WO CONTRAST Exam: CT lumbar spine without contrast INDICATION: Low back pain TECHNIQUE: Sequential axial images through the lumbar spine obtained without IV contrast. Sagittal and coronal reformatted images were reconstructed from the axial data and reviewed. Comparisons: 11/17/2018 FINDINGS: Vertebral body heights and alignment are well-maintained. Fracture to the lumbar spine is not identified. No significant spondylotic change in the cervical spine. Diverticulosis in the same sigmoid colon without evidence of acute diverticulitis. IMPRESSION: 1. Unremarkable CT lumbar spine. 2. Diverticulosis of sigmoid colon. [] Course & Med Decision Making: Course & Med Decision Making Pertinent Labs and Imaging studies reviewed. (See chart for details) Patient is a 59-year-old female who presented to the emergency department with complaints of bilateral low back pain that radiated to both of her legs without any acute injury. CT of the patient's lumbar spine revealed no acute findings. The patient was given 60 mg of IM orphenadrine and 30 mg of IM Toradol, she reported feeling better after these medications. Will prescribe the patient Flexeril and naproxen to use at home. Recommend activity as tolerated, follow-up with her primary care doctor next week for reevaluation. Return to the ER if symptoms worsen. Patient verbalized an understanding of home care, medications, follow-up, and return to ED instructions and was in agreement with the plan of care. [] Kylah Disclaimer: Kylah Disclaimer: This electronic medical record was generated, in whole or in part, using a voice recognition dictation system. Departure Departure Impression: Primary Impression: Low back pain with bilateral sciatica Qualified Codes: M54.42 - Lumbago with sciatica, left side; M54.41 - Lumbago with sciatica, right side; G89.29 - Other chronic pain Disposition: HOME, SELF-CARE Condition: STABLE Referrals: DINORAH STEWART MD (PCP) Patient Instructions: Sciatica, [id number] Additional Instructions: Fill the prescription(s) and use as directed. Apply heat or ice for to sore are as as needed for comfort. Activity as tolerated. Follow up with your primary care doctor this week if symptoms persist, return to the ER if symptoms worsen. Scripts Cyclobenzaprine Hcl (CYCLOBENZAPRINE HCL) 10 Mg Tablet 1 TAB PO TID PRN for PAIN for 10 Days, #30 TAB 0 Refills Prov: MANJIT EAST APRN 11/25/19 Naproxen (NAPROXEN) 500 Mg Tablet 1 TAB PO BID PRN for PAIN for 10 Days, #20 TAB 0 Refills Prov: MANJIT EAST APRN 11/25/19 Justicifation of Admission Dx: Justifications for Admission: Justification of Admission Dx: N/A MANJIT EAST APRN Nov 25, 2019 16:35
[2019-11-25] MEDS ORDERED: KETOROLAC 60 MG/2 ML VIAL. IM ONE (16:45)
[2019-11-25] MEDS ORDERED: ORPHENADRINE CITRATE 60 MG/2 ML VIAL. IM ONE (16:45)
--- NOTE | 2019-11-25 17:16 | RAD ---
Exam: CT lumbar spine without contrast INDICATION: Low back pain TECHNIQUE: Sequential axial images through the lumbar spine obtained without IV contrast. Sagittal and coronal reformatted images were reconstructed from the axial data and reviewed. Comparisons: 11/17/2018 FINDINGS: Vertebral body heights and alignment are well-maintained. Fracture to the lumbar spine is not identified. No significant spondylotic change in the cervical spine. Diverticulosis in the same sigmoid colon without evidence of acute diverticulitis. IMPRESSION: 1. Unremarkable CT lumbar spine. 2. Diverticulosis of sigmoid colon. Exposure: One or more of the following in the visualized dose reduction techniques were utilized for this examination: 1. Automated exposure control 2. Adjustment of the MA and/or KV according to patient size 3. Use of iterative of reconstructive technique Electronically signed by: Agata Clifton MD (11/25/2019 5:13 PM) [id number]
[2019-11-25] MEDS ORDERED: CYCL10TA2 PO (17:53)
[2019-11-25] MEDS ORDERED: NAPR-514 PO (17:53)
[2019-11-25 18:10] VITALS: BP 121/68
== END 2019-11-25 18:12 | disposition home or self-care (01) ==
LOC: ER 15:21
DX: M54.41 Lumbago with sciatica, right side (principal); M54.42 Lumbago with sciatica, left side; G89.29 Other chronic pain; E11.9 Type 2 diabetes mellitus without complications; E78.00 Pure hypercholesterolemia, unspecified; K21.9 Gastro-esophageal reflux disease without esophagitis; K57.30 Diverticulosis of large intestine without perforation or abscess without bleeding
CPT/HCPCS: 72131; 96372; 99284; J1885; J2360

== ENCOUNTER 2020-01-16 10:33 | Emergency (ER) | payer OTHER ==
[~2020-01-16] VITALS: Ht 165.1 cm; Wt 68.6 kg
[~2020-01-16 10:33] MED LIST changes: +NAPR-514 PO
--- NOTE | 2020-01-16 12:17 | RAD ---
EXAM: AP, open-mouth odontoid and lateral views of the cervical spine DATE: 01/16/2020 11:34 AM CLINICAL HISTORY: Neck pain COMPARISON: None available. FINDINGS: On the lateral view, the cervical spine is imaged from the skull base to anterior superior T1. Vertebral body heights are preserved. Intervertebral disc heights are preserved. Straightening of the normal cervical lordosis. No spondylolisthesis. No offset of the lateral masses of C1 on C2. Normal predental space. No significant prevertebral soft tissue swelling. IMPRESSION: No acute fracture or subluxation. Electronically signed by: Ki Nichols MD (01/16/2020 12:14 PM) [email or web address]
--- NOTE | 2020-01-16 12:19 | RAD ---
EXAM: AP, lateral and lumbosacral spot views of the lumbar spine DATE: 01/16/2020 11:34 AM INDICATION: Reason: pain / Spl. Instructions: / History: COMPARISON: No Prior FINDINGS/ IMPRESSION: Deformity of the sacrum likely congenital/developmental. Vertebral body heights are preserved. Mild L5-S1 disc height loss. No spondylolisthesis. No acute fracture. Electronically signed by: Ki Nichols MD (01/16/2020 12:16 PM) [email or web address]
--- NOTE | 2020-01-16 12:22 | RAD ---
Exam:Left ribs with PA chest Date: 01/16/2020 11:34 AM Comparison: No prior Indication: Reason: pain / Spl. Instructions: / History: Findings/ Impression: Cardiomediastinal silhouette is normal. Calcified granuloma right upper lung. No pleural effusion or pneumothorax. Breast calcifications are seen. AP, Oblique images of the left ribs are negative for acute displaced rib fracture. Negative focal pleural elevation. Symmetrical intercostal spacing. It is of note that an acute non-displaced rib fracture can be in-apparent on initial post-trauma imaging. Electronically signed by: Ki Nichols MD (01/16/2020 12:19 PM) [email or web address]
--- NOTE | 2020-01-16 12:23 | RAD ---
THORACIC SPINE 3V 01/16/2020 11:34 AM INDICATION: Pain COMPARISON: None available. TECHNIQUE: 2 views of the thoracic spine are provided. FINDINGS/ IMPRESSION: Minimal dextroconvex curvature is noted at the thoracolumbar junction. No acute fracture of the thoracic spine. Disc heights are maintained. Vertebral body heights are maintained. No significant spondylolisthesis. Visualized portions of the lungs and mediastinum appear clear. Electronically signed by: Tena Hoover MD (01/16/2020 12:20 PM) [id number]
--- NOTE | 2020-01-16 12:50 | PHYS DOC ---
Past Medical History Past Medical History: Cancer, Diabetes-Type II, Diverticulitis, GERD, High Cholesterol, Pneumonia, Other Additional Past Medical Histor: Ryan's esophogus, Sepsis, Vertigo, herniated disc, carcinoma in situ Past Surgical History: , Hysterectomy, Other Additional Past Surgical Histo: bilateral mastectomy, removal of pelvic tumor Smoking Status: Never Smoker Alcohol Use: None Drug Use: None General Adult EDM: Chief Complaint: CHEST PAIN-NON CARDIAC NATURE HPI: HPI: Patient is a 59 year old female with history of diabetes type 2, high cholesterol, left breast cancer with mastectomy and reconstruction years ago, poonam brown presents the ED today complaining of 7 out of 10 left-sided chest pain, low back pain and mid back pain that began on January 08, 2020 after she fell down at night. She states she got up from her sleep and was dizzy, she states she fell down hitting her left side of the chest on a side board. Patient denies any loss of consciousness. States the pain on the low back is worse on certain movements. She states the pain in the low back radiates to the right lower extremity. Denies any loss of bowel/bladder function. Denies any numbness or tingling to bilateral lower extremities. Of note this patient is well-known to this ED for multiple visits for chronic pain and other illnesses complaints. Review of Systems: Review of Systems: Constitutional: Denies fever or chills. [] Eyes: Denies change in visual acuity. [] HENT: Denies nasal congestion or sore throat. [] Respiratory: Denies cough or shortness of breath. [] Cardiovascular: Reports left-sided chest pain. GI: Denies abdominal pain, nausea, vomiting, bloody stools or diarrhea. [] : Denies dysuria. [] Musculoskeletal: Reports mid and low back pain Integument: Denies rash. [] Neurologic: Denies headache, focal weakness or sensory changes. [] Psychiatric: Denies depression or anxiety. [] Heart Score: Risk Factors: Risk Factors: DM, Current or recent (<one month) smoker, HTN, HLP, family history of CAD, obesity. Risk Scores: Score 0 - 3: 2.5% MACE over next 6 weeks - Discharge Home Score 4 - 6: 20.3% MACE over next 6 weeks - Admit for Clinical Observation Score 7 - 10: 72.7% MACE over next 6 weeks - Early Invasive Strategies Allergies: Allergies: Allergies Coded Allergies Type Severity Reaction Last Updated Verified No Known Drug Allergies 01/16/20 No Physical Exam: PE: Constitutional: Well developed, well nourished, no acute distress, non-toxic appearance. [] HENT: Normocephalic, atraumatic, bilateral external ears normal, oropharynx moist, no oral exudates, nose normal. [] Eyes: PERRLA, EOMI, conjunctiva normal, no discharge. [] Neck: Normal range of motion, no tenderness, supple, no stridor. [] Cardiovascular:Heart rate regular rhythm, no murmur [] Lungs & Thorax: Bilateral breath sounds clear to auscultation [] Abdomen: Bowel sounds normal, soft, no tenderness, no masses, no pulsatile masses. [] Skin: Warm, dry, no erythema, no rash. [] Back: No tenderness, no CVA tenderness. [] Extremities: Diffuse muscle spinal tenderness to the lower tenderness lumbar spine, thoracic and cervical spine, no midline cervical thoracic or lumbar spine tenderness, no cyanosis, no clubbing, ROM intact, no edema. [] Neurologic: Alert and oriented X 3, normal motor function, normal sensory function, no focal deficits noted. Cranial nerves II through XII intact Psychologic: Affect normal, judgement normal, mood normal. [] Current Patient Data: Vital Signs: Vital Signs Date Time Temp Pulse Resp B/P (MAP) Pulse Ox O2 Delivery O2 Flow Rate FiO2 01/16/20 10:43 97.6 75 20 141/63 (89) 98 Room Air 97.6 EKG: EKG: [] Radiology/Procedures: Radiology/Procedures: []PROCEDURE: CERVICAL SPINE 2-3V EXAM: AP, open-mouth odontoid and lateral views of the cervical spine DATE: 01/16/2020 11:34 AM CLINICAL HISTORY: Neck pain COMPARISON: None available. FINDINGS: On the lateral view, the cervical spine is imaged from the skull base to anterior superior T1. Vertebral body heights are preserved. Intervertebral disc heights are preserved. Straightening of the normal cervical lordosis. No spondylolisthesis. No offset of the lateral masses of C1 on C2. Normal predental space. No significant prevertebral soft tissue swelling. IMPRESSION: No acute fracture or subluxation. Electronically signed by: Ki Carrillo MD (01/16/2020 12:14 PM) [id number] DICTATED and SIGNED BY: KI CARRILLO MD DATE: 01/16/20 1214 PROCEDURE: LUMBAR SPINE 2-3V EXAM: AP, lateral and lumbosacral spot views of the lumbar spine DATE: 01/16/2020 11:34 AM INDICATION: Reason: pain / Spl. Instructions: / History: COMPARISON: No Prior FINDINGS/ IMPRESSION: Deformity of the sacrum likely congenital/developmental. Vertebral body heights are preserved. Mild L5-S1 disc height loss. No spondylolisthesis. No acute fracture. Electronically signed by: Ki Carrillo MD (01/16/2020 12:16 PM) [email or web address] DICTATED and SIGNED BY: KI CARRILLO MD DATE: 01/16/20 1216 PROCEDURE: RIBS LEFT AND PA CHEST Exam:Left ribs with PA chest Date: 01/16/2020 11:34 AM Comparison: No prior Indication: Reason: pain / Spl. Instructions: / History: Findings/ Impression: Cardiomediastinal silhouette is normal. Calcified granuloma right upper lung. No pleural effusion or pneumothorax. Breast calcifications are seen. AP, Oblique images of the left ribs are negative for acute displaced rib fracture. Negative focal pleural elevation. Symmetrical intercostal spacing. It is of note that an acute non-displaced rib fracture can be in-apparent on initial post-trauma imaging. Electronically signed by: Ki Carrillo MD (01/16/2020 12:19 PM) [email or web address] DICTATED and SIGNED BY: KI CARRILLO MD DATE: 01/16/20 1219 PROCEDURE: THORACIC SPINE 3V THORACIC SPINE 3V 01/16/2020 11:34 AM INDICATION: Pain COMPARISON: None available. TECHNIQUE: 2 views of the thoracic spine are provided. FINDINGS/ IMPRESSION: Minimal dextroconvex curvature is noted at the thoracolumbar junction. No acute fracture of the thoracic spine. Disc heights are maintained. Vertebral body heights are maintained. No significant spondylolisthesis. Visualized portions of the lungs and mediastinum appear clear. Electronically signed by: Gene Segundo MD (01/16/2020 12:20 PM) [id number] DICTATED and SIGNED BY: GENE SEGUNDO MD DATE: 01/16/20 1220 Course & Med Decision Making: Course & Med Decision Making Pertinent Labs and Imaging studies reviewed. (See chart for details) This is a 59-year-old female patient well-known to this ED who presents today complaining of left chest pain, mid and low back pain after falling down on January 08, 2020. No cauda equina syndrome symptoms, no loss of consciousness. CT of the head, xrays of the cervical spine, thoracic and lumbar spine are negative for any acute findings. Chest x-ray is negative. Patient was discharged to home. Of note patient is well-known to this ED for pain complaints and other none urgent medical care complaints. Supportive care measures recommended. Dragon Disclaimer: Dragon Disclaimer: This electronic medical record was generated, in whole or in part, using a voice recognition dictation system. Departure Departure Impression: Primary Impression: Fall Qualified Codes: W19.XXXA - Unspecified fall, initial encounter Additional Impressions: Chest wall contusion Qualified Codes: S20.212A - Contusion of left front wall of thorax, initial encounter Low back pain Qualified Codes: M54.42 - Lumbago with sciatica, left side; M54.41 - Lumbago with sciatica, right side Disposition: 01 HOME, SELF-CARE Condition: STABLE Referrals: DINORAH STEWART MD (PCP) follow up next week Patient Instructions: Contusion, [id number], Fall Prevention and Home Safety Additional Instructions: Your CAT scan of the head is negative for any acute findings, your x-rays of the cervical spine, thoracic and lumbar spine as well as chest are negative for any acute findings. Try to ice and elevate the affected areas. Follow-up with your doctor in 1 to 2 weeks. Justicifation of Admission Dx: Justifications for Admission: Justification of Admission Dx: N/A YVONNE HERNÁNDEZ [employer] Jan 16, 2020 12:50
--- NOTE | 2020-01-16 13:31 | RAD ---
CT HEAD INDICATION: Fall COMPARISON: 10/03/2016. Exposure: One or more of the following individualized dose reduction techniques were utilized for this examination: 1. Automated exposure control 2. Adjustment of the mA and/or kV according to patient size 3. Use of iterative reconstruction technique TECHNIQUE: 5 mm contiguous axial images were obtained from the skull base to the vertex in both bone and soft tissue algorithm. FINDINGS: No abnormal attenuation within the brain parenchyma. No evidence of acute intracranial hemorrhage. No extra-axial fluid collections. No mass effect or midline shift. Ventricular size is appropriate. Basal cisterns are patent. No fractures identified.Santos-white differentiation is preserved.Globes and orbits are within normal limits. Paranasal sinuses and mastoid air cells are clear. IMPRESSION: No acute intracranial findings. Electronically signed by: Niraj Eddy MD (01/16/2020 1:28 PM) [id number]
[2020-01-16 15:02] VITALS: BP 131/62
== END 2020-01-16 15:02 | disposition home or self-care (01) ==
LOC: ER 10:33
DX: S20.212A Contusion of left front wall of thorax, initial encounter (principal); M54.42 Lumbago with sciatica, left side; M54.41 Lumbago with sciatica, right side; R07.81 Pleurodynia; M54.2 Cervicalgia; R51 Headache; K21.9 Gastro-esophageal reflux disease without esophagitis; E78.00 Pure hypercholesterolemia, unspecified; E11.9 Type 2 diabetes mellitus without complications; Z90.710 Acquired absence of both cervix and uterus; W18.09XA Striking against other object with subsequent fall, initial encounter; Y93.89 Activity, other specified; Y92.89 Other specified places as the place of occurrence of the external cause; Y99.8 Other external cause status
CPT/HCPCS: 70450; 71101; 72040; 72072; 72100; 93005; 99285

== ENCOUNTER 2021-06-09 08:18 | Emergency (ER) | payer BC, OTHER ==
[~2021-06-09] VITALS: Ht 165.1 cm; Wt 72.8 kg
[~2021-06-09 08:18] MED LIST changes: +AMOX1TAB11 PO; +BUPR150T21 PO; -BUPR150T6 PO; +CYCL10TA19 PO; -CYCL10TA2 PO; +DICY20TA PO; -DICY20TA3 PO; -LISI2.5T PO; +LISI2.5T12 PO; -OMEP40CA45 PO; +OMEP40CA7 PO
[2021-06-09] MEDS ORDERED: ONDANSETRON PF 4 MG/2 ML VIAL. IVP ONE (08:45)
[2021-06-09] MEDS ORDERED: IV NORMAL SALINE 1000ML BAG 1,000 ML IV ONE (08:45)
[2021-06-09] MEDS ORDERED: MORPHINE SULFATE 4 MG/ML INJ. IV PRN (08:45)
--- NOTE | 2021-06-09 08:50 | PHYS DOC ---
Past Medical History Past Medical History: Cancer, Diabetes-Type II, Diverticulitis, GERD, High Cholesterol, Pneumonia, Other Additional Past Medical Histor: Ryan's esophogus,Sepsis,Vertigo,herniated disc,carcinoma in situ Past Surgical History: , Hysterectomy, Other Additional Past Surgical Histo: bilateral mastectomy w/reconstruction,tummy tuck,removal of pelvic tumor Smoking Status: Never Smoker Alcohol Use: None Drug Use: None Adult General Chief Complaint Chief Complaint: ABDOMINAL PAIN HPI HPI Patient is a 61 year old female presenting to the emergency department for evaluation of left lower quadrant pain diarrhea nausea that has been going on for the past 1 week. She says that it feels similar to when she has had diverticulitis in the past as she has had at least 3 prior courses over the past 3 to 4 years and was told by her primary care doctor that she may require surgery if she has further episodes. Patient says the diarrhea is nonbloody and she has had no fevers or vomiting. Patient denies being on antibiotics at this time. Patient is in no acute distress with normal vital signs. Review of Systems Review of Systems Constitutional: Denies fever or chills [] Eyes: Denies change in visual acuity, redness, or eye pain [] HENT: Denies nasal congestion or sore throat [] Respiratory: Denies cough or shortness of breath [] Cardiovascular: No additional information not addressed in HPI [] GI: + abdominal pain, nausea. No vomiting, bloody stools. + diarrhea [] : Denies dysuria or hematuria [] Musculoskeletal: Denies back pain or joint pain [] Integument: Denies rash or skin lesions [] Neurologic: Denies headache, focal weakness or sensory changes [] All other systems were reviewed and found to be within normal limits, except as documented in this note. Current Medications Current Medications Current Medications Medications (Trade) Dose Ordered Sig/Arie Start Time Stop Time Status Last Admin Dose Admin Info (CONTRAST GIVEN -- Rx MONITORING) 1 each PRN DAILY PRN 06/09/21 10:30 06/11/21 10:29 Iohexol (Omnipaque 300 Mg/ml) 75 ml 1X ONCE 06/09/21 10:30 06/09/21 10:31 DC 06/09/21 10:33 75 ML Morphine Sulfate (Morphine Sulfate) 4 mg 1X PRN 06/09/21 08:45 2/13/22 09:06 4 MG Ondansetron HCl (Zofran) 4 mg 1X ONCE 06/09/21 08:45 06/09/21 08:50 DC 06/09/21 09:05 4 MG Sodium Chloride 1,000 ml @ 1,000 mls/hr 1X ONCE 06/09/21 08:45 06/09/21 09:44 DC 06/09/21 09:05 1,000 MLS/HR Allergies Allergies Allergies Coded Allergies Type Severity Reaction Last Updated Verified No Known Drug Allergies 01/16/20 No Physical Exam Physical Exam Constitutional: Well developed, well nourished, no acute distress, non-toxic appearance. [] HENT: Normocephalic, atraumatic, bilateral external ears normal, oropharynx m oist, no oral exudates, nose normal. [] Eyes: PERRLA, EOMI, conjunctiva normal, no discharge. [] Neck: Normal range of motion, no tenderness, supple, no stridor. [] Cardiovascular:Heart rate regular rhythm, no murmur [] Lungs & Thorax: Bilateral breath sounds clear to auscultation [] Abdomen: Bowel sounds normal, soft, positive left lower quadrant tenderness to palpation with no rebound or guarding Skin: Warm, dry, no erythema, no rash. [] Back: No tenderness, no CVA tenderness. [] Extremities: No tenderness, no cyanosis, no clubbing, ROM intact, no edema. [] Neurologic: Alert and oriented X 3, normal motor function, normal sensory function, no focal deficits noted. [] Psychologic: Affect normal, judgement normal, mood normal. [] Current Patient Data Vital Signs Vital Signs Date Time Temp Pulse Resp B/P (MAP) Pulse Ox O2 Delivery O2 Flow Rate FiO2 06/09/21 10:01 70 12 150/66 (94) 99 Room Air 06/09/21 08:23 97.8 97.8 Lab Values Laboratory Tests Test 06/09/21 08:29 06/09/21 09:50 Urine Collection Type Void Urine Color Flor Urine Clarity Cloudy Urine pH 5.5 (<5.0-8.0) Urine Specific [place] 1.025 (1.000-1.030) Urine Protein >=300 mg/dL (NEG-TRACE) Urine Glucose (UA) 500 mg/dL (NEG) Urine Ketones (Stick) Negative mg/dL (NEG) Urine Blood Trace (NEG) Urine Nitrite Positive (NEG) Urine Bilirubin Negative (NEG) Urine Urobilinogen Dipstick 0.2 mg/dL (0.2 mg/dL) Urine Leukocyte Esterase Small (NEG) Urine RBC 0 /HPF (0-2) Urine WBC >40 /HPF (0-4) Urine Squamous Epithelial Cells Mod /LPF Urine Bacteria Many /HPF (0-FEW) Urine Mucus Slight /LPF White Blood Count 5.5 x10^3/uL (4.0-11.0) Red Blood Count 4.97 x10^6/uL (3.50-5.40) Hemoglobin 11.4 g/dL (12.0-15.5) L Hematocrit 37.4 % (36.0-47.0) Mean Corpuscular Volume 75 fL (79-100) L Mean Corpuscular Hemoglobin 23 pg (25-35) L Mean Corpuscular Hemoglobin Concent 31 g/dL (31-37) Red Cell Distribution Width 17.1 % (11.5-14.5) H Platelet Count 196 x10^3/uL (140-400) Neutrophils (%) (Auto) 62 % (31-73) Lymphocytes (%) (Auto) 29 % (24-48) Monocytes (%) (Auto) 7 % (0-9) Eosinophils (%) (Auto) 2 % (0-3) Basophils (%) (Auto) 1 % (0-3) Neutrophils # (Auto) 3.4 x10^3/uL (1.8-7.7) Lymphocytes # (Auto) 1.6 x10^3/uL (1.0-4.8) Monocytes # (Auto) 0.4 x10^3/uL (0.0-1.1) Eosinophils # (Auto) 0.1 x10^3/uL (0.0-0.7) Basophils # (Auto) 0.0 x10^3/uL (0.0-0.2) Sodium Level 138 mmol/L (136-145) Potassium Level 4.7 mmol/L (3.5-5.1) Chloride Level 104 mmol/L (98-107) Carbon Dioxide Level 26 mmol/L (21-32) Anion Gap 8 (6-14) Blood Urea Nitrogen 9 mg/dL (7-20) Creatinine 0.8 mg/dL (0.6-1.0) Estimated GFR (Cockcroft-Gault) 73.4 BUN/Creatinine Ratio 11 (6-20) Glucose Level 307 mg/dL (70-99) H Calcium Level 8.5 mg/dL (8.5-10.1) Total Bilirubin 0.3 mg/dL (0.2-1.0) Aspartate Amino Transferase (AST) 28 U/L (15-37) Alanine Aminotransferase (ALT) 41 U/L (14-59) Alkaline Phosphatase 91 U/L (46-116) Total Protein 7.9 g/dL (6.4-8.2) Albumin 2.8 g/dL (3.4-5.0) L Albumin/Globulin Ratio 0.5 (1.0-1.7) L Lipase 479 U/L (73-393) H Laboratory Tests 06/09/21 09:50 Laboratory Tests 06/09/21 09:50 EKG EKG [] Radiology/Procedures Radiology/Procedures [] Course & Med Decision Making Course & Med Decision Making Patient with left lower quadrant pain that could be consistent with diverticulitis I will check labs imaging treat symptoms and reassess. Patient does have findings of mild early acute diverticulitis but no perforation or abscess or other surgical complication. She does have multiple incidental findings I discussed with her the need for follow-up including hyperglycemia and that she is also low on proteins but there is no signs of dehydration or other electrolyte abnormality. Patient feels much better after treatment in the emergency department and her repeat abdominal exam is benign and she has no foc al tenderness rebound or guarding. Patient will be treated supportively as an outpatient with Ansley Martínez and Shayy and I will give her referral to the general surgeon and she says she would like to someone about having a hemicolectomy given the frequency of her diverticulitis although 4 episodes in 4 years does not sound severe but I will give her that option with an outpatient surgeon. Patient told to drink plenty of fluids and eat a balanced diet and come back to emergency department sooner with worsening pain fevers vomiting or other general concerns. Patient aware and agreeable with plan for discharge and verbalized understanding of the above instructions. Dragon Disclaimer Dragon Disclaimer This electronic medical record was generated, in whole or in part, using a voice recognition dictation system. Departure Departure Impression: Primary Impression: Hyperglycemia Additional Impression: Acute diverticulitis Disposition: HOME / SELF CARE / HOMELESS Condition: IMPROVED Referrals: DINORAH STEWART MD (PCP) PRAVEEN SPICER MD Patient Instructions: Diverticulitis Additional Instructions: Drink plenty of fluids and take ibuprofen and Tylenol for pain and the [place] for breakthrough pain. Follow with primary care provider and surgeon and come back to emergency department sooner with worsening pain fevers vomiting or other general concerns. Scripts Ondansetron (ONDANSETRON ODT) 4 Mg Tab.rapdis 1 TAB PO PRN Q6-8HRS, #16 TAB Prov: BLAKE FRANK DO 06/09/21 Hydrocodone/Acetaminophen (Hydrocodone-Acetamin 5-325 mg) 1 Each Tablet 1 EACH PO Q6HRS PRN for PAIN for 5 Days, #20 TAB Prov: BLAKE FRANK DO 06/09/21 Metronidazole (METRONIDAZOLE) 500 Mg Tablet 1 TAB PO TID for 7 Days, #21 TAB 0 Refills Prov: BLAKE FRANK DO 06/09/21 Ciprofloxacin Hcl (CIPROFLOXACIN HCL) 500 Mg Tablet 1 TAB PO BID, #14 TAB Prov: BLAKE FRANK DO 06/09/21 Problem Qualifiers BLAKE FRANK DO Jun 09, 2021 08:50
[2021-06-09 08:54] LABS: BILIRUBIN,URINE NEGATIVE (NEG); CLARITY,URINE CLOUDY; COLOR,URINE AMBER; NITRITE,URINE POSITIVE (NEG); PH,URINE 5.5 (<5.0-8.0); PROTEIN,URINE >=300 mg/dL (NEG-TRACE); UROBILINOGEN,URINE 0.2 mg/dL (0.2 mg/dL)
[2021-06-09 09:19] LABS: BACTERIA,URINE MANY /HPF (0-FEW); RBC,URINE 0 /HPF (0-2); WBC,URINE >40 /HPF (0-4)
[2021-06-09 10:10] LABS: BASO % 1 % (0-3); EOS # 0.1 x10^3/uL (0.0-0.7); EOS % 2 % (0-3); HEMATOCRIT 37.4 % (36.0-47.0); HEMOGLOBIN 11.4 g/dL (12.0-15.5); LYMPH # 1.6 x10^3/uL (1.0-4.8); LYMPH % 29 % (24-48); MEAN CORPUSCULAR HEMOGLOBIN 23 pg (25-35); MEAN CORPUSCULAR HGB CONC 31 g/dL (31-37); MEAN CORPUSCULAR VOLUME 75 fL (79-100); MONO # 0.4 x10^3/uL (0.0-1.1); MONO % 7 % (0-9); NEUT # 3.4 x10^3/uL (1.8-7.7); NEUT % 62 % (31-73); PLATELET COUNT 196 x10^3/uL (140-400); RED BLOOD COUNT 4.97 x10^6/uL (3.50-5.40); RED CELL DISTRIBUTION WIDTH 17.1 % (11.5-14.5); WHITE BLOOD COUNT 5.5 x10^3/uL (4.0-11.0)
[2021-06-09 10:19] LABS: CALCIUM 8.5 mg/dL (8.5-10.1); CREATININE 0.8 mg/dL (0.6-1.0); GFR 73.4; POTASSIUM 4.7 mmol/L (3.5-5.1)
[2021-06-09 10:25] LABS: ALBUMIN 2.8 g/dL (3.4-5.0); ALBUMIN/GLOBULIN RATIO 0.5 (1.0-1.7); TOTAL BILIRUBIN 0.3 mg/dL (0.2-1.0); TOTAL PROTEIN 7.9 g/dL (6.4-8.2)
[2021-06-09] MEDS ORDERED: CONTRAST GIVEN. MC PRN (10:30)
[2021-06-09] MEDS ORDERED: IOHEXOL 300 MG/ML 100ML VIAL. IV ONE (10:30)
--- NOTE | 2021-06-09 11:01 | RAD ---
EXAM: CT Abdomen and Pelvis with IV contrast CLINICAL HISTORY: Reason: LLQ pain / Spl. Instructions: IV omni 300 75 mls / History: . COMPARISON: 10/19/2020 TECHNIQUE: Helical CT of the abdomen and pelvis was performed following the administration of intrave nous contrast. Axial, coronal and sagittal reformatted images were generated. PQRS compliance statement - One or more of the following individualized dose reduction techniques wer e utilized for this study: 1. Automated exposure control 2. Adjustment of the mA and/or kV according to patient size 3. Use of iterative reconstruction technique FINDINGS: Lower Chest: Visualized lung bases are clear. Abdomen and Pelvis: Liver is normal in size and attenuation. Normal gallbladder is present. No biliary ductal dilation. T he spleen, adrenals, and pancreas are unremarkable. Kidneys are normal. No hydronephrosis. Urinary bl adder is normal. Small hernia. Stomach is decompressed but unremarkable. No evidence of bowel obstruction. Diverticula predominantly in the descending and sigmoid colon with associated wall thickening. There is a very f aint amount of pericolonic stranding at the proximal sigmoid colon. No free intra-abdominal air or fr ee fluid. Appendix is not definitely visualized. Small bowel is unremarkable. No pathologically enlarged abdomi nal or pelvic adenopathy. Vasculature appears normal in course and caliber. Uterus is absent. No suspicious adnexal masses. There is a calcified umbilical subcutaneous nodules favoring sequela of fat necrosis redemonstrated n o evidence of acute abnormality in the anterior abdominal wall. No acute osseous abnormalities. IMPRESSION: 1. Distal descending/sigmoid colon diverticuli with associated wall thickening and a subtle amount of pericolonic fat stranding. This may represent sequela from prior diverticulitis or early acute diver ticulitis. GI consultation for nonemergent colonoscopy may also be of benefit to exclude underlying m alignancy. 2. Other chronic/incidental findings, as above. Electronically signed by: Thiago Mendieta DO (06/09/2021 10:58 AM) [facility]
[2021-06-09] MEDS ORDERED: METR-34 PO (11:22)
[2021-06-09] MEDS ORDERED: CIPR500T2 PO (11:22)
[2021-06-09] MEDS ORDERED: HYDR-2759 PO (11:22)
[2021-06-09] MEDS ORDERED: ONDA4TAB12 PO (11:22)
[2021-06-09 11:28] VITALS: BP 172/73
== END 2021-06-09 11:47 | disposition home or self-care (01) ==
LOC: ER 08:18
DX: K57.92 Diverticulitis of intestine, part unspecified, without perforation or abscess without bleeding (principal); E11.65 Type 2 diabetes mellitus with hyperglycemia; K21.9 Gastro-esophageal reflux disease without esophagitis; E78.00 Pure hypercholesterolemia, unspecified; Z90.710 Acquired absence of both cervix and uterus
CPT/HCPCS: 36415; 74177; 80053; 81001; 83690; 85025; 87086; 96361; 96374; 96375; 99285; J2270; J2405; J7030; Q9967; 87077; 87186

== ENCOUNTER 2021-07-05 09:13 | Inpatient (IN) | payer BC, OTHER ==
[~2021-07-05] VITALS: Ht 165.1 cm; Wt 77.4 kg
[~2021-07-05 09:13] MED LIST changes: +CIPR250T30 PO; +CIPR500T2 PO; +EMPA25TA3 PO; +HYDR-2759 PO; +METR-34 PO; +SEMA0.25 SQ; +SERT-267 PO; +ZOLP5TAB PO
[2021-07-05] MEDS ORDERED: ONDANSETRON PF 4 MG/2 ML VIAL. IVP ONE (09:45)
[2021-07-05] MEDS ORDERED: IV NORMAL SALINE 1000ML BAG 1,000 ML IV ONE (09:45)
[2021-07-05] MEDS ORDERED: MORPHINE SULFATE 4 MG/ML INJ. IVP ONE ×2 (09:45→12:45)
[2021-07-05 09:55] LABS: BILIRUBIN,URINE NEGATIVE (NEG); CLARITY,URINE CLEAR; COLOR,URINE YELLOW; PH,URINE 5.5 (<5.0-8.0)
[2021-07-05 09:56] LABS: BACTERIA,URINE 0 /HPF (0-FEW); NITRITE,URINE NEGATIVE (NEG); PROTEIN,URINE 100 mg/dL (NEG-TRACE); RBC,URINE 0 /HPF (0-2); UROBILINOGEN,URINE 0.2 mg/dL (0.2 mg/dL); WBC,URINE OCC /HPF (0-4)
[2021-07-05 10:23] LABS: CALCIUM 10.3 mg/dL (8.5-10.1); CREATININE 1.2 mg/dL (0.6-1.0); POTASSIUM 4.3 mmol/L (3.5-5.1)
[2021-07-05 10:24] LABS: BASO # 0.1 x10^3/uL (0.0-0.2); BASO % 1 % (0-3); EOS # 0.1 x10^3/uL (0.0-0.7); EOS % 2 % (0-3); HEMATOCRIT 42.6 % (36.0-47.0); HEMOGLOBIN 13.3 g/dL (12.0-15.5); LYMPH # 1.8 x10^3/uL (1.0-4.8); LYMPH % 22 % (24-48); MEAN CORPUSCULAR HEMOGLOBIN 23 pg (25-35); MEAN CORPUSCULAR HGB CONC 31 g/dL (31-37); MEAN CORPUSCULAR VOLUME 75 fL (79-100); MONO # 0.5 x10^3/uL (0.0-1.1); MONO % 6 % (0-9); NEUT # 5.9 x10^3/uL (1.8-7.7); NEUT % 70 % (31-73); PLATELET COUNT 356 x10^3/uL (140-400); RED BLOOD COUNT 5.67 x10^6/uL (3.50-5.40); RED CELL DISTRIBUTION WIDTH 18.4 % (11.5-14.5); WHITE BLOOD COUNT 8.5 x10^3/uL (4.0-11.0)
[2021-07-05 10:29] LABS: ALBUMIN/GLOBULIN RATIO 0.7 (1.0-1.7); MAGNESIUM 1.7 mg/dL (1.8-2.4); TOTAL BILIRUBIN 0.5 mg/dL (0.2-1.0); TOTAL PROTEIN 9.8 g/dL (6.4-8.2)
[2021-07-05] MEDS ORDERED: CONTRAST GIVEN. MC PRN (10:45)
[2021-07-05] MEDS ORDERED: IOHEXOL 300 MG/ML 100ML VIAL. IV ONE (10:45)
--- NOTE | 2021-07-05 11:03 | RAD ---
PQRS Compliance Statement: One or more of the following individualized dose reduction techniques were utilized for this examinat ion: 1. Automated exposure control 2. Adjustment of the mA and/or kV according to patient size 3. Use of iterative reconstruction technique CT ABDOMEN+PELVIS W Clinical Indication: Reason: epig pain / Spl. Instructions: omni 300 60ml / History: Comparison: CT abdomen and pelvis of contrast, 2021. Technique: Helical CT imaging of the abdomen and pelvis is performed after 60 cc of Omnipaque 300 IV contrast. Oral contrast not administered. Findings: Lung bases are clear. Cardiac size is normal. The liver, gallbladder, spleen, pancreas, adrenal glands, abdominal aorta, and kidneys are normal. The stomach is unremarkable. There is no dilated small bowel. Appendix is not seen, no secondary sign s of appendicitis. There are diverticula of the descending and sigmoid colon. Previously seen sigmoid diverticulitis has resolved. No perforation or abscess is seen. No colon wall thickening is seen. No abdominal adenopathy or free fluid. Urinary bladder is mostly decompressed. Hysterectomy. No pelvic free fluid. 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 IMPRESSION: 1. No acute abdominal or pelvic abnormality. 2. Distal colon diverticulosis. Electronically signed by: George King MD (07/05/2021 11:01 AM) [id number]
--- NOTE | 2021-07-05 11:21 | RAD ---
XR CHEST 1V Clinical Indication: Reason: EPIGASTRIC PAIN / Spl. Instructions: / History: Comparison: AP chest January 16, 2020. Findings: Stable partially calcified granuloma right midlung. The cardiomediastinal silhouette is normal. Lungs are clear. There is no pneumothorax. No pleural effusion is appreciated. No acute bone abnormality. There are surgical clips in the left breast, unchanged. IMPRESSION: No acute cardiopulmonary process. Electronically signed by: George King MD (07/05/2021 11:19 AM) [id number]
--- NOTE | 2021-07-05 12:50 | EKG ---
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
--- NOTE | 2021-07-05 12:56 | PHYS DOC ---
Past Medical History Past Medical History: Cancer, Diabetes-Type II, Diverticulitis, GERD, High Cholesterol, Pneumonia, Other Additional Past Medical Histor: Ryan's esophogus,Sepsis,Vertigo,herniated disc,carcinoma in situ Past Surgical History: , Hysterectomy, Other Additional Past Surgical Histo: bilateral mastectomy w/reconstruction,tummy tuck,removal of pelvic tumor Smoking Status: Never Smoker Alcohol Use: None Drug Use: None Adult General Chief Complaint Chief Complaint: ABDOMINAL PAIN HPI HPI Patient is a 61 year old female with abdominal pain, nausea and vomiting. The patient states that she was diagnosed with diverticulitis a few weeks ago. She was placed on oral antibiotics but did not really much improvement. She had come back to the hospital and was hospitalized up until June 21, I believe from the to the and then discharged home again. The patient has had copious amounts of watery stool and increasing crampy epigastric pain for the last week and a half or so. She is not a fever that she is aware of and denies any chest pain or shortness of breath. Review of Systems Review of Systems Constitutional: Denies fever Eyes: Denies change in visual acuity or eye pain HENT: Denies sore throat Respiratory: Denies shortness of breath Cardiovascular: Denies chest pain GI: Reports abd pain : Denies dysuria Musculoskeletal: Denies back or extremity injury Integument: Denies rash or skin lesions Neurologic: Denies headache, focal weakness or sensory changes All other systems were reviewed and found to be within normal limits, except as documented in this note. Current Medications Current Medications Current Medications Medications (Trade) Dose Ordered Sig/Arie Start Time Stop Time Status Last Admin Dose Admin Info (CONTRAST GIVEN -- Rx MONITORING) 1 each PRN DAILY PRN 07/05/21 10:45 07/07/21 10:44 Iohexol (Omnipaque 300 Mg/ml) 60 ml 1X ONCE 07/05/21 10:45 07/05/21 10:46 DC 07/05/21 10:46 60 ML Morphine Sulfate (Morphine Sulfate) 4 mg 1X ONCE 07/05/21 12:45 07/05/21 12:46 Ondansetron HCl (Zofran) 4 mg 1X ONCE 07/05/21 09:45 07/05/21 09:46 DC 07/05/21 09:48 4 MG Sodium Chloride 1,000 ml @ 1,000 mls/hr 1X ONCE 07/05/21 09:45 07/05/21 10:44 DC 07/05/21 09:45 1,000 MLS/HR Allergies Allergies Allergies Coded Allergies Type Severity Reaction Last Updated Verified No Known Drug Allergies 07/05/21 No Physical Exam Physical Exam Constitutional: Well developed, well nourished, no acute distress, non-toxic appearance. HENT: Normocephalic, atraumatic, bilateral external ears normal, mucosa moist, nose normal. Eyes: EOMI, conjunctiva normal, no discharge. Neck: Normal range of motion, supple, no stridor, no meningeal signs. Cardiovascular: Regular rate and rhythm Lungs & Thorax: Bilateral breath sounds clear to auscultation Abdomen: Soft with voluntary guarding in the epigastrium, no obvious masses Skin: Warm, dry, no erythema, no rash. Extremities: No tenderness, no cyanosis, no clubbing, ROM intact, no edema. Neurologic: Alert and oriented, normal motor function, normal sensory function, no focal deficits noted. Psychologic: Affect normal, judgement normal, mood normal. Current Patient Data Vital Signs Vital Signs Date Time Temp Pulse Resp B/P (MAP) Pulse Ox O2 Delivery O2 Flow Rate FiO2 07/05/21 12:05 77 15 136/88 (104) 96 Room Air 07/05/21 09:15 98.0 98.0 Lab Values Laboratory Tests Test 07/05/21 09:35 07/05/21 09:40 Urine Collection Type Void Urine Color Yellow Urine Clarity Clear Urine pH 5.5 (<5.0-8.0) Urine Specific [place] 1.015 (1.000-1.030) Urine Protein 100 mg/dL (NEG-TRACE) Urine Glucose (UA) >=1000 mg/dL (NEG) Urine Ketones (Stick) Negative mg/dL (NEG) Urine Blood Negative (NEG) Urine Nitrite Negative (NEG) Urine Bilirubin Negative (NEG) Urine Urobilinogen Dipstick 0.2 mg/dL (0.2 mg/dL) Urine Leukocyte Esterase Negative (NEG) Urine RBC 0 /HPF (0-2) Urine WBC Occ /HPF (0-4) Urine Squamous Epithelial Cells Mod /LPF Urine Bacteria 0 /HPF (0-FEW) White Blood Count 8.5 x10^3/uL (4.0-11.0) Red Blood Count 5.67 x10^6/uL (3.50-5.40) H Hemoglobin 13.3 g/dL (12.0-15.5) Hematocrit 42.6 % (36.0-47.0) Mean Corpuscular Volume 75 fL (79-100) L Mean Corpuscular Hemoglobin 23 pg (25-35) L Mean Corpuscular Hemoglobin Concent 31 g/dL (31-37) Red Cell Distribution Width 18.4 % (11.5-14.5) H Platelet Count 356 x10^3/uL (140-400) Neutrophils (%) (Auto) 70 % (31-73) Lymphocytes (%) (Auto) 22 % (24-48) L Monocytes (%) (Auto) 6 % (0-9) Eosinophils (%) (Auto) 2 % (0-3) Basophils (%) (Auto) 1 % (0-3) Neutrophils # (Auto) 5.9 x10^3/uL (1.8-7.7) Lymphocytes # (Auto) 1.8 x10^3/uL (1.0-4.8) Monocytes # (Auto) 0.5 x10^3/uL (0.0-1.1) Eosinophils # (Auto) 0.1 x10^3/uL (0.0-0.7) Basophils # (Auto) 0.1 x10^3/uL (0.0-0.2) Sodium Level 135 mmol/L (136-145) L Potassium Level 4.3 mmol/L (3.5-5.1) Chloride Level 97 mmol/L (98-107) L Carbon Dioxide Level 24 mmol/L (21-32) Anion Gap 14 (6-14) Blood Urea Nitrogen 16 mg/dL (7-20) Creatinine 1.2 mg/dL (0.6-1.0) H Estimated GFR (Cockcroft-Gault) 46.0 BUN/Creatinine Ratio 13 (6-20) Glucose Level 188 mg/dL (70-99) H Lactic Acid Level 2.0 mmol/L (0.4-2.0) Calcium Level 10.3 mg/dL (8.5-10.1) H Magnesium Level 1.7 mg/dL (1.8-2.4) L Total Bilirubin 0.5 mg/dL (0.2-1.0) Aspartate Amino Transferase (AST) 75 U/L (15-37) H Alanine Aminotransferase (ALT) 59 U/L (14-59) Alkaline Phosphatase 78 U/L (46-116) Troponin I High Sensitivity 5 ng/L (4-50) Total Protein 9.8 g/dL (6.4-8.2) H Albumin 4.0 g/dL (3.4-5.0) Albumin/Globulin Ratio 0.7 (1.0-1.7) L Lipase 514 U/L (73-393) H Laboratory Tests 07/05/21 09:40 Laboratory Tests 07/05/21 09:40 EKG EKG Twelve-lead EKG demonstrates a sinus rhythm with a rate of 82. OH, QRS and QT corrected intervals are within normal limits. No ST segment elevation or depression, slow R wave progression, no clinically pertinent Q waves. [] Radiology/Procedures Radiology/Procedures [] Impressions: PATIENT: AUDREY BLANCO RACCOUNT: [id number]#: [id number] : 1960 LOCATION: ER AGE: 61 SEX: F EXAM STATUS: REG ER ORD. PHYSICIAN: FREDI LU MD REASON: EPIGASTRIC PAIN PROCEDURE: CHEST AP ONLY XR CHEST 1V Clinical Indication: Reason: EPIGASTRIC PAIN / Spl. Instructions: / History: Comparison: AP chest January 16, 2020. Findings: Stable partially calcified granuloma right midlung. The cardiomediastinal silhouette is normal. Lungs are clear. There is no pneumothorax. No pleural eff usion is appreciated. No acute bone abnormality. There are surgical clips in the left breast, unchanged. IMPRESSION: No acute cardiopulmonary process. Electronically signed by: George King MD (07/05/2021 11:19 AM) [id number] DICTATED and SIGNED BY: GEORGE KING MD DATE: 07/05/21 [id number] PATIENT: AUDREY BLANCO ACCOUNT: [id number] : 1960 LOCATION: ER AGE: 61 SEX: F EXAM STATUS: REG ER ORD. PHYSICIAN: FREDI LU MD REASON: epig pain PROCEDURE: CT ABD PELV W/ IV CONTRST ONLY PQRS Compliance Statement: One or more of the following individualized dose reduction techniques were utilized for this examination: 1. Automated exposure control 2. Adjustment of the mA and/or kV according to patient size 3. Use of iterative reconstruction technique CT ABDOMEN+PELVIS W Clinical Indication: Reason: epig pain / Spl. Instructions: omni 300 60ml / History: Comparison: CT abdomen and pelvis of contrast, 2021. Technique: Helical CT imaging of the abdomen and pelvis is performed after 60 cc of Omnipaque 300 IV contrast. Oral contrast not administered. Findings: Lung bases are clear. Cardiac size is normal. The liver, gallbladder, spleen, pancreas, adrenal glands, abdominal aorta, and kidneys are normal. The stomach is unremarkable. There is no dilated small bowel. Appendix is not seen, no secondary signs of appendicitis. There are diverticula of the descending and sigmoid colon. Previously seen sigmoid diverticulitis has resolved. No perforation or abscess is seen. No colon wall thickening is seen. No abdominal adenopathy or free fluid. Urinary bladder is mostly decompressed. Hysterectomy. No pelvic free fluid. 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 IMPRESSION: 1. No acute abdominal or pelvic abnormality. 2. Distal colon diverticulosis. Electronically signed by: George King MD (07/05/2021 11:01 AM) [id number] DICTATED and SIGNED BY: GEORGE KING MD DATE: 07/05/21 [id number] Course & Med Decision Making Course & Med Decision Making Pertinent Labs and Imaging studies reviewed. (See chart for details) [] Dragon Disclaimer Dragon Disclaimer This electronic medical record was generated, in whole or in part, using a voice recognition dictation system. Departure Departure Impression: Primary Impression: Abdominal pain Additional Impressions: N&V (nausea and vomiting) Generalized weakness Disposition: ADMITTED INPATIENT Condition: STABLE Referrals: DINORAH STEWART MD (PCP) Problem Qualifiers FREDI LU MD Jul 05, 2021 12:56
[2021-07-05] MEDS ORDERED: ONDANSETRON PF 4 MG/2 ML VIAL. IVP PRN (13:00)
[2021-07-05] MEDS ORDERED: MORPHINE SULFATE 2 MG/ML INJ. IVP PRN (13:00)
[2021-07-05 14:45] VITALS: BP 126/70
[2021-07-05] MEDS ORDERED: ZOLPIDEM 5 MG TABLET. PO PRN (17:15)
--- NOTE | 2021-07-05 18:29 | HP ---
DATE OF SERVICE: 07/05/2021 ADMIT DATE: 07/05/2021 CHIEF COMPLAINT: Abdominal pain, nausea. HISTORY OF PRESENT ILLNESS: The patient is a pleasant 61-year-old female well known to our service. She was here just a few weeks ago with diverticulitis. At that time, we gave her IV antibiotics and fluids and she did well and we got her home. Now, she presents once again with abdominal pain, but surprisingly, her CAT scan really does not show diverticulitis, although it does show diverticulosis. She does have an elevation of her lipase. We are concerned she could have pancreatitis or gallstones or both. We are going to admit the patient and consult GI. PAST MEDICAL HISTORY: Recent COVID-19, bilateral mastectomy with breast cancer, diabetes, hypertension, hyperlipidemia, GERD, diverticulitis, pneumonia, Ryan's esophagus, sepsis, vertigo, herniated disk, , hysterectomy, pelvic tumor. ALLERGIES: None. FAMILY HISTORY: Diabetes. SOCIAL HISTORY: She is recently . Her from COVID-19. She states she is depressed, does not drink, smoke or take drugs. MEDICATIONS: Reviewed, please refer to the MRAD. REVIEW OF SYSTEMS: GENERAL: No history of weight change, weakness or fevers. SKIN: No bruising, hair changes or rashes. EYES: No blurred, double or loss of vision. NOSE AND THROAT: No history of nosebleeds, hoarseness or sore throat. HEART: No history of palpitations, chest pain or shortness of breath on exertion. LUNGS: Denies cough, hemoptysis, wheezing or shortness of breath. GASTROINTESTINAL: She complains of abdominal pain. GENITOURINARY: No history of frequency, urgency, hesitancy or nocturia. NEUROLOGIC: Denies history of numbness, tingling, tremor or weakness. PSYCHIATRIC: No history of panic, anxiety or depression. ENDOCRINE: No history of heat or cold intolerance, polyuria or polydipsia. EXTREMITIES: Denies muscle weakness, joint pain, pain on walking or stiffness. PHYSICAL EXAMINATION: VITALS: Within normal limits and are stable. GENERAL: No apparent distress. Alert and oriented. HEENT: Normal cephalic atraumatic, external auditory canals are patent. Eyes: Extraocular muscles are intact, pupils are equally round and reactive to light and accommodation. MUSCULOSKELETAL: Well developed, well nourished, good range of motion. ENDOCRINE: No thyromegaly was palpated. LYMPHATICS: No cervical chain or axillary nodes were noted. HEMATOPOIETIC: No bruising. NECK: Supple, no JVD, no thyromegaly was noted. LUNGS: Clear to auscultation in all lung gutierrez without rhonchi or wheezing. HEART: RRR, S1, S2 present. Peripheral pulses intact, no obvious murmurs were noted. ABDOMEN: Soft, nontender. Positive bowel sounds, no organomegaly, normal bowel sounds. EXTREMITIES: Without any cyanosis, clubbing, or edema. Pedal pulses intact, Homans sign is negative. NEUROLOGIC: Normal speech, normal tone. A and O x 3, moves all extremities, no obvious focal deficits. PSYCHIATRIC: Normal affect, normal mood. Stable. SKIN: No ulcerations or rashes, good skin turgor, no jaundice. VASCULAR: Good capillary refill, neurovascular bundle appears to be intact. LABORATORY DATA: White count 8. Sodium is little low at 135. Lactic acid normal at 2, AST high at 75. Urinalysis negative. Abdominal CT shows diverticulosis. Chest x-ray negative. ASSESSMENT AND PLAN: Abdominal pain with elevated lipase, suspect possible gallstones or idiopathic pancreatitis. The patient has been admitted. We will check abdominal ultrasound. Regarding her hyponatremia, we will start normal saline at 75 mL an hour, p.r.n. Zofran, p.r.n. morphine, home meds. Deep venous thrombosis prophylaxis. Full code. SOTO/RONNIE/YESENIA DR: Elen TID: [id number]
[2021-07-05 19:00] VITALS: BP 106/57
[2021-07-05] MEDS: oxyCODONE/APAP 10/325 1 TAB TABLET PO PRN (20:04)
[2021-07-05] MEDS ORDERED: CIPROFLOXACIN HCL 250 MG TABLET. PO SCH (21:00)
[2021-07-05] MEDS ORDERED: metroNIDAZOLE 500 MG TABLET PO SCH (22:00)
[2021-07-05] MEDS: IV NORMAL SALINE 1000ML BAG 1,000 ML IV SCH (22:05)
[2021-07-05 23:00] VITALS: BP 121/57
[2021-07-06 03:00] VITALS: BP 103/46
[2021-07-06] MEDS: IV NORMAL SALINE 1000ML BAG 1,000 ML IV SCH ×3 (06:18→20:37)
[2021-07-06 07:00] VITALS: BP 111/53
[2021-07-06] MEDS: PANTOPRAZOLE 40 MG TABLET.DR. PO SCH (07:41)
[2021-07-06] MEDS: SERTRALINE 50 MG TABLET. PO SCH (09:52)
[2021-07-06] MEDS: DULoxetine HCL 30 MG CAPSULE.DR PO SCH (09:52)
[2021-07-06 11:18] VITALS: BP 113/57
[2021-07-06] MEDS: oxyCODONE/APAP 10/325 1 TAB TABLET PO PRN ×2 (12:59→20:38)
--- NOTE | 2021-07-06 13:03 | RAD ---
EXAM: Abdomen sonogram. HISTORY: Gallstones. TECHNIQUE: Sonographic imaging of the abdomen was performed. COMPARISON: CT dated 07/05/2021. FINDINGS: The liver is normal in size. No hepatic lesion is seen. The gallbladder wall is normal in t hickness. The gallbladder is distended, measuring 9.2 cm. The common bile duct is normal in caliber. The right kidney, pancreas and inferior cava are unremarkable. IMPRESSION: Distended gallbladder. There is no convincing cholelithiasis and there are no secondary f indings to suggest cholecystitis. Electronically signed by: Iris Atkinson MD (07/06/2021 1:01 PM) [id number]
[2021-07-06 15:02] VITALS: BP 128/44
--- NOTE | 2021-07-06 15:37 | PDOC2 ---
CONSULT Date of Consult Date of Consult DATE: 07/06/21 TIME: 15:30 Reason for Consult Reason for Consult: Diarrhea History of Present Illness Reason for Visit: This is a 61-year-old female who was recently discharged from the hospital with episode of recurrent diverticulitis requiring inpatient IV antibiotics. She was seen by my associate Dr. Connor and was scheduled for outpatient colonoscopy in the next few weeks after her diverticulitis resolved. She actually because of recurrent symptoms over the past years was being considered for elective sigmoid resection. She relates that over the past month she has had recurring diarrhea symptoms that have worsened dramatically over the past 2 weeks. She now has fecal incontinence. She has been exposed antibiotics significantly over the past few weeks to treat her diverticulitis, therefore putting her at risk for antibiotic associated diarrhea or even C. difficile. Other infections certainly cannot be excluded. However no colitis is noted on her CT scan imaging. She had a slight elevation in lipase on admission but her pancreas appears normal on imaging. Her gallbladder also was normal although slightly distended. No obvious gallstones or biliary dilation and liver function studies are normal. She expresses concerns about her diarrhea, about her blood pressure, about her recurrent diverticulitis, about a protuberance in her substernal region that turns out to be her sternum etc. Past Medical History Cardiovascular: HTN, Hyperlipidemia Pulmonary: Bronchitis CENTRAL NERVOUS SYSTEM: Periperal neuropathy GI: GERD, Other Heme/Onc: Anemia NOS, Cancer Hepatobiliary: No pertinent hx Psych: Depression Musculoskeletal: Osteoarthritis Rheumatologic: No pertinent hx Infectious disease: No pertinent hx Renal/: UTI Endocrine: Diabetes Past Surgical History Past Surgical History: , Mastectomy, Hysterectomy Family History Family History: Cancer, Coronary Artery Disease Social History ALCOHOL: none Drugs: None Lives: with Family Current Problem List Problem List Problems Medical Problems: (1) Abdominal pain Status: Acute (2) Generalized weakness Status: Acute (3) N&V (nausea and vomiting) Status: Acute Current Medications Current Medications Current Medications Sodium Chloride 1,000 ml @ 1,000 mls/hr 1X ONCE IV Last administered on 07/05/21at 09:45; Start 07/05/21 at 09:45; Stop 07/05/21 at 10:44; Status DC Morphine Sulfate (Morphine Sulfate) 4 mg 1X ONCE IVP Last administered on 07/05/21at 09:48; Start 07/05/21 at 09:45; Stop 07/05/21 at 09:46; Status DC Ondansetron HCl (Zofran) 4 mg 1X ONCE IVP Last administered on 07/05/21at 09:48; Start 07/05/21 at 09:45; Stop 07/05/21 at 09:46; Status DC Iohexol (Omnipaque 300 Mg/ml) 60 ml 1X ONCE IV Last administered on 07/05/21at 10:46; Start 07/05/21 at 10:45; Stop 07/05/21 at 10:46; Status DC Info (CONTRAST GIVEN -- Rx MONITORING) 1 each PRN DAILY PRN MC SEE COMMENTS; Start 07/05/21 at 10:45; Stop 07/07/21 at 10:44 Morphine Sulfate (Morphine Sulfate) 4 mg 1X ONCE IVP Last administered on 07/05/21at 12:45; Start 07/05/21 at 12:45; Stop 07/05/21 at 12:46; Status DC Ondansetron HCl (Zofran) 4 mg PRN Q8HRS PRN IVP NAUSEA/VOMITING; Start 07/05/21 at 13:00; Stop 07/06/21 at 12:59; Status DC Morphine Sulfate (Morphine Sulfate) 2 mg PRN Q2HR PRN IVP PAIN; Start 07/05/21 at 13:00; Stop 07/06/21 at 12:59; Status DC Sodium Chloride 1,000 ml @ 75 mls/hr [id number] IV Last administered on 07/06/21at 07:42; Start 07/05/21 at 17:15 Atorvastatin Calcium (Lipitor) 40 mg QHS PO ; Start 07/06/21 at 21:00 Ciprofloxacin (Cipro) 500 mg BID PO ; Start 07/05/21 at 21:00; Status UNV Duloxetine HCl (Cymbalta) 30 mg DAILY PO Last administered on 07/06/21at 09:52; Start 07/06/21 at 09:00 Metronidazole (Flagyl) 500 mg Q8HRS PO ; Start 07/05/21 at 22:00; Status UNV Sertraline HCl (Zoloft) 100 mg DAILY PO Last administered on 07/06/21at 09:52; Start 07/06/21 at 09:00 Zolpidem Tartrate (Ambien) 5 mg PRN QHS PRN PO insomnia; Start 07/05/21 at 17:15 Pantoprazole Sodium (Protonix) 40 mg DAILYAC PO Last administered on 07/06/21at 07:41; Start 07/06/21 at 07:30 Oxycodone/ Acetaminophen (Percocet 10/325) 1 tab PRN Q4HRS PRN PO PAIN Last administered on 07/06/21at 12:59; Start 07/05/21 at 18:45 Active Scripts Active Ambien (Zolpidem Tartrate) 5 Mg Tablet 5 Mg PO PRN QHS PRN 10 Days Sertraline Hcl 50 Mg Tablet 100 Mg PO DAILY 30 Days Reported Ozempic (Semaglutide) 0.25 Mg/0.2 Ml Pen.injctr Unknown Dose SQ QM Jardiance (Empaglifozin) 25 Mg Tablet Unknown Dose PO DAILY Atorvastatin Calcium 40 Mg Tablet 40 Mg PO DAILY Omeprazole 40 Mg Capsule.dr 40 Mg PO DAILY Cymbalta (Duloxetine Hcl) 30 Mg Capsule.dr 30 Mg PO DAILY Allergies Allergies: Coded Allergies: No Known Drug Allergies (Unverified , 07/05/21) Physical Exam General: Alert, Oriented X3, Cooperative HEENT: Atraumatic, PERRLA Lungs: Clear to auscultation Heart: Regular rate, Normal S1, Normal S2 Abdomen: Normal bowel sounds, Soft, No tenderness, No hepatosplenomegaly, No masses Extremities: No clubbing, No cyanosis Neuro: Normal gait, Normal speech Psych/Mental Status: Mental status NL Vitals VITALS Vital Signs Date Time Temp Pulse Resp B/P (MAP) Pulse Ox O2 Delivery O2 Flow Rate FiO2 07/06/21 15:02 97.8 66 16 128/44 (72) 96 Room Air 97.8 Labs Labs Laboratory Tests Test 07/05/21 09:35 07/05/21 09:40 07/06/21 11:13 Urine Collection Type Void Urine Color Yellow Urine Clarity Clear Urine pH 5.5 (<5.0-8.0) Urine Specific [place] 1.015 (1.000-1.030) Urine Protein 100 mg/dL (NEG-TRACE) Urine Glucose (UA) >=1000 mg/dL (NEG) Urine Ketones (Stick) Negative mg/dL (NEG) Urine Blood Negative (NEG) Urine Nitrite Negative (NEG) Urine Bilirubin Negative (NEG) Urine Urobilinogen Dipstick 0.2 mg/dL (0.2 mg/dL) Urine Leukocyte Esterase Negative (NEG) Urine RBC 0 /HPF (0-2) Urine WBC Occ /HPF (0-4) Urine Squamous Epithelial Cells Mod /LPF Urine Bacteria 0 /HPF (0-FEW) White Blood Count 8.5 x10^3/uL (4.0-11.0) Red Blood Count 5.67 x10^6/uL (3.50-5.40) Hemoglobin 13.3 g/dL (12.0-15.5) Hematocrit 42.6 % (36.0-47.0) Mean Corpuscular Volume 75 fL (79-100) Mean Corpuscular Hemoglobin 23 pg (25-35) Mean Corpuscular Hemoglobin Concent 31 g/dL (31-37) Red Cell Distribution Width 18.4 % (11.5-14.5) Platelet Count 356 x10^3/uL (140-400) Neutrophils (%) (Auto) 70 % (31-73) Lymphocytes (%) (Auto) 22 % (24-48) Monocytes (%) (Auto) 6 % (0-9) Eosinophils (%) (Auto) 2 % (0-3) Basophils (%) (Auto) 1 % (0-3) Neutrophils # (Auto) 5.9 x10^3/uL (1.8-7.7) Lymphocytes # (Auto) 1.8 x10^3/uL (1.0-4.8) Monocytes # (Auto) 0.5 x10^3/uL (0.0-1.1) Eosinophils # (Auto) 0.1 x10^3/uL (0.0-0.7) Basophils # (Auto) 0.1 x10^3/uL (0.0-0.2) Sodium Level 135 mmol/L (136-145) Potassium Level 4.3 mmol/L (3.5-5.1) Chloride Level 97 mmol/L (98-107) Carbon Dioxide Level 24 mmol/L (21-32) Anion Gap 14 (6-14) Blood Urea Nitrogen 16 mg/dL (7-20) Creatinine 1.2 mg/dL (0.6-1.0) Estimated GFR (Cockcroft-Gault) 46.0 BUN/Creatinine Ratio 13 (6-20) Glucose Level 188 mg/dL (70-99) Lactic Acid Level 2.0 mmol/L (0.4-2.0) Calcium Level 10.3 mg/dL (8.5-10.1) Magnesium Level 1.7 mg/dL (1.8-2.4) Total Bilirubin 0.5 mg/dL (0.2-1.0) Aspartate Amino Transf (AST/SGOT) 75 U/L (15-37) Alanine Aminotransferase (ALT/SGPT) 59 U/L (14-59) Alkaline Phosphatase 78 U/L (46-116) Troponin I High Sensitivity 5 ng/L (4-50) Total Protein 9.8 g/dL (6.4-8.2) Albumin 4.0 g/dL (3.4-5.0) Albumin/Globulin Ratio 0.7 (1.0-1.7) Lipase 514 U/L (73-393) Glucose (Fingerstick) 155 mg/dL (70-99) Laboratory Tests Test 07/06/21 11:13 Glucose (Fingerstick) 155 mg/dL (70-99) Images Images CT ABDOMEN+PELVIS W Clinical Indication: Reason: epig pain / Spl. Instructions: omni 300 60ml / History: Comparison: CT abdomen and pelvis of contrast, 2021. Technique: Helical CT imaging of the abdomen and pelvis is performed after 60 cc of Omnipaque 300 IV contrast. Oral contrast not administered. Findings: Lung bases are clear. Cardiac size is normal. The liver, gallbladder, spleen, pancreas, adrenal glands, abdominal aorta, and kidneys are normal. The stomach is unremarkable. There is no dilated small bowel. Appendix is not seen, no secondary signs of appendicitis. There are diverticula of the descending and sigmoid colon. Previously seen sigmoid diverticulitis has resolved. No perforation or abscess is seen. No colon wall thickening is seen. No abdominal adenopathy or free fluid. Urinary bladder is mostly decompressed. Hysterectomy. No pelvic free fluid. 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 IMPRESSION: 1. No acute abdominal or pelvic abnormality. 2. Distal colon diverticulosis. Assessment/Plan Assessment/Plan Diarrhea. This seems to be her latest complaint and has worsened recently. Certainly she has had extensive antibiotic exposure to treat her recurrent diverticulitis which certainly puts her at risk for altered gut nica with antibiotic associated diarrhea or even C. difficile. Other infections cannot be excluded as well. Stool studies are critical and we will order those today. Recurrent diverticulitis. Awaiting colonoscopy and then surgical evaluation for elective sigmoid resection. Plan: Stool studies Monitor labs As needed antidiarrheal meds in the outpatient setting Defer to Dr. Connor on timing of colonoscopy KILLIAN YANG MD Jul 06, 2021 15:36
[2021-07-06 19:15] VITALS: BP 134/57
[2021-07-06] MEDS: ATORVASTATIN CALCIUM 40 MG TABLET. PO SCH (20:38)
[2021-07-06 23:05] VITALS: BP 129/53
[2021-07-07 03:32] VITALS: BP 130/51
[2021-07-07 07:00] VITALS: BP 134/73
[2021-07-07] MEDS: PANTOPRAZOLE 40 MG TABLET.DR. PO SCH (09:02)
[2021-07-07] MEDS: SERTRALINE 50 MG TABLET. PO SCH (09:02)
[2021-07-07] MEDS: DULoxetine HCL 30 MG CAPSULE.DR PO SCH (09:02)
[2021-07-07] MEDS: IV NORMAL SALINE 1000ML BAG 1,000 ML IV SCH ×2 (09:15→22:50)
[2021-07-07 11:00] VITALS: BP 125/64
--- NOTE | 2021-07-07 14:46 | PDOC ---
GI PROGRESS NOTES Date of Service: Date/Time DATE: 07/07/21 TIME: 14:43 Subjective Subjective No bowel movement since admission in spite of her chronic diarrhea complaints. Continues to complain of generalized pain in her back, abdomen and feels "bad". Focused on a variety of details including the mildly elevated lipase on admission, this perception of an increased bulge in her sternal region which has improved overnight, etc. Objective Vitals Vital Signs Date Time Temp Pulse Resp B/P (MAP) Pulse Ox O2 Delivery O2 Flow Rate FiO2 07/07/21 11:00 97.6 66 17 125/64 (84) 94 Room Air 97.6 07/07/21 08:00 Room Air 07/07/21 07:00 97.6 60 17 134/73 (93) 95 Room Air 97.6 07/07/21 03:32 97.7 58 20 130/51 (77) 97 Room Air 97.7 07/06/21 23:05 97.9 68 18 129/53 (78) 95 Room Air 97.9 07/06/21 21:46 16 07/06/21 20:38 18 07/06/21 19:15 97.9 68 18 134/57 (82) 95 Room Air 97.9 07/06/21 15:50 96 07/06/21 15:02 97.8 66 16 128/44 (72) 96 Room Air 97.8 Labs Labs Laboratory Tests Test 07/06/21 16:10 07/06/21 20:50 07/07/21 07:20 07/07/21 11:24 Glucose (Fingerstick) 132 mg/dL (70-99) 150 mg/dL (70-99) 119 mg/dL (70-99) 125 mg/dL (70-99) Physical Exam Physical Exam Anxious Awake and alert Chest clear Abdomen soft, nontender, normal bowel sounds Assessment Assessment Chronic diarrhea. Of course since admission she has had no bowel movement so we're waiting for a bowel movement to test for a variety of possible pathogens including C. difficile. Abdominal pain and back pain. History of diverticulitis but no diverticulitis on CAT scan presently. Likely irritable bowel is playing a role with her recurrent symptoms in the past along with her recurrent diverticulitis. She did have a mildly elevated lipase on admission but her CAT scan was unrevealing. We will repeat the lipase since it is probably a lab curiosity and see what it shows. Plan Plan Repeat lipase Await stool studies before initiating any specific therapy for her diarrhea Dr. Connor will assume her GI care tomorrow and will decide on whether colonoscopy is warranted Justicifation of Admission Dx: Justifications for Admission: Justification of Admission Dx: Yes KILLIAN YANG MD Jul 07, 2021 14:46
[2021-07-07 14:48] VITALS: BP 137/52
--- NOTE | 2021-07-07 16:54 | PDOC ---
[facility] PROGRESS NOTE Date of Service DOS: Late entry for July 06 Chief Complaint Chief Complaint Abdominal pain with elevated lipase, suspect possible gallstones or idiopathic pancreatitis. The patient has been admitted. We will check abdominal ultrasound. Regarding her hyponatremia, we will start normal saline at 75 mL an hour, p.r.n. Zofran, p.r.n. morphine, home meds. GI consult deep venous thrombosis prophylaxis. Full code History of Present Illness History of Present Illness 07/06 Patient evaluated examined at bedside. Resting in bed reporting upper abdominal pain to me. Well-known to the service. Symptomatic treatment. GI con sultation. Vitals/I&O Vitals/I&O: Vital Signs Date Time Temp Pulse Resp B/P (MAP) Pulse Ox O2 Delivery O2 Flow Rate FiO2 07/07/21 14:48 97.8 77 17 137/52 (80) 95 Room Air 97.8 I & O 07/06/21 07/06/21 07/07/21 15:00 23:00 07:00 Intake Total 1000 ml 360 ml Balance 1000 ml 360 ml Physical Exam General: Alert, Oriented X3, Cooperative Heart: Regular rate, Normal S1, Normal S2 Lungs: Clear Abdomen: Normal bowel sounds, Soft, No tenderness, No hepatosplenomegaly, No masses Extremities: No clubbing, No cyanosis Labs Labs: Laboratory Tests Test 07/06/21 20:50 07/07/21 07:20 07/07/21 11:24 07/07/21 16:40 Glucose (Fingerstick) 150 mg/dL (70-99) 119 mg/dL (70-99) 125 mg/dL (70-99) 149 mg/dL (70-99) Assessment and Plan Assessmemt and Plan Problems Medical Problems: (1) Abdominal pain Status: Acute (2) Generalized weakness Status: Acute (3) N&V (nausea and vomiting) Status: Acute Comment Review of Relevant I have reviewed the following items malorie (where applicable) has been applied. Medications: Current Medications Medications (Trade) Dose Ordered Sig/Arie Route PRN Reason Start Time Stop Time Status Last Admin Dose Admin Atorvastatin Calcium (Lipitor) 40 mg QHS PO 07/06/21 21:00 07/06/21 20:38 Justifications for Admission Other Justification OSCAR ROWAN MD Jul 07, 2021 16:54
--- NOTE | 2021-07-07 16:55 | PDOC ---
[facility] PROGRESS NOTE Date of Service DOS: DATE: 07/07/21 TIME: 16:54 Chief Complaint Chief Complaint Abdominal pain with elevated lipase, suspect possible gallstones or idiopathic pancreatitis. The patient has been admitted. We will check abdominal ultrasound. Regarding her hyponatremia, we will start normal saline at 75 mL an hour, p.r.n. Zofran, p.r.n. morphine, home meds. GI consult deep venous thrombosis prophylaxis. Full code History of Present Illness History of Present Illness 07/06 Patient evaluated examined at bedside. Resting in bed reporting upper abdominal pain to me. Well-known to the service. Symptomatic treatment. GI consultation. 07/07 Evaluated examined at bedside. Complaining of ongoing pain. Very focused on her sternum but minimal concern on our part. GI following. No BM since admission. May need colonoscopy this admission? Vitals/I&O Vitals/I&O: Vital Signs Date Time Temp Pulse Resp B/P (MAP) Pulse Ox O2 Delivery O2 Flow Rate FiO2 07/07/21 14:48 97.8 77 17 137/52 (80) 95 Room Air 97.8 I & O 07/06/21 07/06/21 07/07/21 15:00 23:00 07:00 Intake Total 1000 ml 360 ml Balance 1000 ml 360 ml Physical Exam General: Alert, Oriented X3, Cooperative Heart: Regular rate, Normal S1, Normal S2 Lungs: Clear Abdomen: Normal bowel sounds, Soft, No tenderness, No hepatosplenomegaly, No masses Extremities: No clubbing, No cyanosis Labs Labs: Laboratory Tests Test 07/06/21 20:50 07/07/21 07:20 07/07/21 11:24 07/07/21 16:40 Glucose (Fingerstick) 150 mg/dL (70-99) 119 mg/dL (70-99) 125 mg/dL (70-99) 149 mg/dL (70-99) Assessment and Plan Assessmemt and Plan Problems Medical Problems: (1) Abdominal pain Status: Acute (2) Generalized weakness Status: Acute (3) N&V (nausea and vomiting) Status: Acute Comment Review of Relevant I have reviewed the following items malorie (where applicable) has been applied. Medications: Current Medications Medications (Trade) Dose Ordered Sig/Arie Route PRN Reason Start Time Stop Time Status Last Admin Dose Admin Atorvastatin Calcium (Lipitor) 40 mg QHS PO 07/06/21 21:00 07/06/21 20:38 Justifications for Admission Other Justification OSCAR ROWAN MD Jul 07, 2021 16:55
[2021-07-07 19:15] VITALS: BP 133/65
[2021-07-07] MEDS: ATORVASTATIN CALCIUM 40 MG TABLET. PO SCH (20:06)
[2021-07-07] MEDS: diphenhydrAMINE HCL 25 MG CAPSULE PO PRN (22:49)
[2021-07-07] MEDS: HYDROcodone/APAP 10/325 1 TAB TABLET PO PRN (22:50)
[2021-07-07 23:07] VITALS: BP 142/65
[2021-07-08] VITALS (7 sets, daily range): BP systolic 114–146; BP diastolic 54–68
[2021-07-08 05:16] LABS: ALBUMIN/GLOBULIN RATIO 0.7 (1.0-1.7); CALCIUM 9.2 mg/dL (8.5-10.1); CREATININE 0.8 mg/dL (0.6-1.0); GFR 73.4; POTASSIUM 4.4 mmol/L (3.5-5.1); TOTAL BILIRUBIN 0.2 mg/dL (0.2-1.0); TOTAL PROTEIN 7.5 g/dL (6.4-8.2)
[2021-07-08] MEDS: SERTRALINE 50 MG TABLET. PO SCH (08:17)
[2021-07-08] MEDS: DULoxetine HCL 30 MG CAPSULE.DR PO SCH (08:17)
[2021-07-08] MEDS: PANTOPRAZOLE 40 MG TABLET.DR. PO SCH (08:17)
--- NOTE | 2021-07-08 09:50 | PDOC ---
Date of Service: DATE: 07/08/21 TIME: 09:30 Subjective: Subjective: "I'm doin'." Prior to admission reports she had pain "going everywhere" (different from diverticulitis pain) and diarrhea/incontinence (occurred at night). Reports outpt C Diff w/ PCP was negative last week. She knows something is wrong. Asks about elevated lipase. She has no energy and feels very fatigued - "I couldn't even open a bottle of water." Lost "10 pounds in a week" at home. Another doctor said these symptoms could be related to a gallbladder problem. Has a lump that sticks out in upper abdomen - sometimes there, sometimes not. Some discomfort between shoulder blades. No n/v. Takes omeprazole QD at home. Here has been able to eat yogurt, eggs, fruit, soup, bagel, and grilled cheese. No longer has diarrhea - actually feels constipated but says she was able to leave a sample. Says she's only taking 1 pain pill a day (hydrocodone because she doesn't like Fentanyl, morphine, or oxycodone). Can't really say if abdominal pain is worse after eating. Does think it's worse before stooling (but she hasn't really stooled here). Objective: Objective: A1c was 12 in 09/2020. HIDA in 2018 showed GB EF 46%. Iron deficient in 2019. D/w nurse - no stools except for a small smear - not able to be sent for testing. Vital Signs: Vital Signs Date Time Temp Pulse Resp B/P (MAP) Pulse Ox O2 Delivery O2 Flow Rate FiO2 07/08/21 07:00 97.5 61 18 144/54 (84) 97 Room Air 97.5 Labs: Laboratory Tests Test 07/07/21 11:24 07/07/21 16:40 07/07/21 20:20 07/08/21 04:05 Glucose (Fingerstick) 125 mg/dL 149 mg/dL 155 mg/dL Sodium Level 138 mmol/L Potassium Level 4.4 mmol/L Chloride Level 104 mmol/L Carbon Dioxide Level 29 mmol/L Anion Gap 5 Blood Urea Nitrogen 9 mg/dL Creatinine 0.8 mg/dL Estimated GFR (Cockcroft-Gault) 73.4 BUN/Creatinine Ratio 11 Glucose Level 158 mg/dL Calcium Level 9.2 mg/dL Total Bilirubin 0.2 mg/dL Aspartate Amino Transf (AST/SGOT) 38 U/L Alanine Aminotransferase (ALT/SGPT) 39 U/L Alkaline Phosphatase 62 U/L Total Protein 7.5 g/dL Albumin 3.0 g/dL Albumin/Globulin Ratio 0.7 Lipase 488 U/L Test 07/08/21 07:13 Glucose (Fingerstick) 126 mg/dL Imaging: CT A/P 07/05 IMPRESSION: 1. No acute abdominal or pelvic abnormality. 2. Distal colon diverticulosis. CXR 07/05 IMPRESSION: No acute cardiopulmonary process. Abd US 07/05 IMPRESSION: Distended gallbladder. There is no convincing cholelithiasis and there are no secondary findings to suggest cholecystitis. PE: GEN: NAD LUNGS: CTAB HEART: RRR ABD: NABS, soft, non-specific mild discomfort across upper abdomen NEURO/PSYCH: A & O 3, depressed A/P: Abdominal pain Diarrhea Recurrent diverticulitis Weight loss Depression Mildly elevated lipase - unclear significance -- Significant time spent with her this morning. She has many non-specific complaints and concerns, indicates she wants more testing and to have an answer/solution, and wants to feel better and go back to work. She is tolerating her diet, no longer having diarrhea, and pain is improved/managed. I'm not sure further inpatient testing is needed at this time. She has outpt EGD and colonoscopy scheduled with Dr. Connor in July. Will review all with him. Justicifation of Admission Dx: Justifications for Admission: Justification of Admission Dx: Yes FAVIOLA LYNN Jul 08, 2021 09:49
--- NOTE | 2021-07-08 10:03 | NUR ---
SW following. Discussed with RN, pt from home, room air, clear liquid diet. GI following. RN advised no SW needs at this time. SW will continue to follow.
[2021-07-08] MEDS: IV NORMAL SALINE 1000ML BAG 1,000 ML IV SCH (11:55)
[2021-07-08] MEDS: HYDROcodone/APAP 10/325 1 TAB TABLET PO PRN ×2 (14:09→21:51)
--- NOTE | 2021-07-08 19:45 | PDOC ---
[facility] PROGRESS NOTE Date of Service DOS: DATE: 07/08/21 TIME: 19:40 Chief Complaint Chief Complaint Abdominal pain with elevated lipase, suspect possible gallstones or idiopathic pancreatitis. The patient has been admitted. We will check abdominal ultrasound. Regarding her hyponatremia, we will start normal saline at 75 mL an hour, p.r.n. Zofran, p.r.n. morphine, home meds. GI consult deep venous thrombosis prophylaxis. Full code History of Present Illness History of Present Illness 07/06 Patient evaluated examined at bedside. Resting in bed reporting upper abdominal pain to me. Well-known to the service. Symptomatic treatment. GI consultation. 07/07 Evaluated examined at bedside. Complaining of ongoing pain. Very focused on her sternum but minimal concern on our part. GI following. No BM since admission. May need colonoscopy this admission? 07/08 Patient evaluated examined at bedside. She was reporting ongoing abdominal pain. Presented with diarrhea and now constipation here now. She has many nonspecific complaints. Attempted to discuss with her that outpatient follow-up with scopes is the recommended ongoing treatment. Very difficult to reason with as she "wants something done." Again expressed that she is stable and needs to follow outpatient. With recent history suspect a psych component to this; essentially likely will have to force d/c on her. Vitals/I&O Vitals/I&O: Vital Signs Date Time Temp Pulse Resp B/P (MAP) Pulse Ox O2 Delivery O2 Flow Rate FiO2 07/08/21 15:00 98.0 65 18 133/56 (81) 94 Room Air 98.0 I & O 07/07/21 07/07/21 07/08/21 15:00 23:00 07:00 Intake Total 360 ml 1600 ml 120 ml Balance 360 ml 1600 ml 120 ml Physical Exam General: Alert, Oriented X3, Cooperative Heart: Regular rate, Normal S1, Normal S2 Lungs: Clear Abdomen: Normal bowel sounds, Soft, No tenderness, No hepatosplenomegaly, No masses Extremities: No clubbing, No cyanosis Labs Labs: Laboratory Tests Test 07/07/21 20:20 07/08/21 04:05 07/08/21 07:13 07/08/21 11:57 Glucose (Fingerstick) 155 mg/dL (70-99) 126 mg/dL (70-99) 118 mg/dL (70-99) Sodium Level 138 mmol/L (136-145) Potassium Level 4.4 mmol/L (3.5-5.1) Chloride Level 104 mmol/L (98-107) Carbon Dioxide Level 29 mmol/L (21-32) Anion Gap 5 (6-14) Blood Urea Nitrogen 9 mg/dL (7-20) Creatinine 0.8 mg/dL (0.6-1.0) Estimated GFR (Cockcroft-Gault) 73.4 BUN/Creatinine Ratio 11 (6-20) Glucose Level 158 mg/dL (70-99) Calcium Level 9.2 mg/dL (8.5-10.1) Total Bilirubin 0.2 mg/dL (0.2-1.0) Aspartate Amino Transf (AST/SGOT) 38 U/L (15-37) Alanine Aminotransferase (ALT/SGPT) 39 U/L (14-59) Alkaline Phosphatase 62 U/L (46-116) Total Protein 7.5 g/dL (6.4-8.2) Albumin 3.0 g/dL (3.4-5.0) Albumin/Globulin Ratio 0.7 (1.0-1.7) Lipase 488 U/L (73-393) Test 07/08/21 16:58 07/08/21 19:19 Glucose (Fingerstick) 144 mg/dL (70-99) 213 mg/dL (70-99) Assessment and Plan Assessmemt and Plan Problems Medical Problems: (1) Abdominal pain Status: Acute (2) Generalized weakness Status: Acute (3) N&V (nausea and vomiting) Status: Acute Comment Review of Relevant I have reviewed the following items malorie (where applicable) has been applied. Medications: Current Medications Medications (Trade) Dose Ordered Sig/Arie Route PRN Reason Start Time Stop Time Status Last Admin Dose Admin Diphenhydramine HCl (Benadryl) 25 mg PRN Q6HRS PRN PO ITCHING 07/07/21 22:30 07/07/21 22:49 Acetaminophen/ Hydrocodone Bitart (Lortab 10) 1 tab PRN Q6HRS PRN PO SEVERE PAIN 7-10 07/07/21 22:30 07/08/21 14:09 Justifications for Admission Other Justification OSCAR ROWAN MD Jul 08, 2021 19:45
[2021-07-08] MEDS: ATORVASTATIN CALCIUM 40 MG TABLET. PO SCH (21:49)
[2021-07-08] MEDS: diphenhydrAMINE HCL 25 MG CAPSULE PO PRN (21:49)
[2021-07-09] MEDS: IV NORMAL SALINE 1000ML BAG 1,000 ML IV SCH (01:15)
[2021-07-09 07:15] VITALS: BP 122/53
[2021-07-09] MEDS: DULoxetine HCL 30 MG CAPSULE.DR PO SCH (08:20)
[2021-07-09] MEDS: PANTOPRAZOLE 40 MG TABLET.DR. PO SCH (08:20)
[2021-07-09] MEDS: SERTRALINE 50 MG TABLET. PO SCH (08:20)
--- NOTE | 2021-07-09 10:08 | PDOC ---
Date of Service: DATE: 07/09/21 TIME: 09:57 Subjective: Subjective: Tolerating diet, pain improved, had some loose stools yesterday but none today. Wants to know what's wrong, feels like we haven't accomplished anything, no one has told her what the tests show. Objective: Vital Signs: Vital Signs Date Time Temp Pulse Resp B/P (MAP) Pulse Ox O2 Delivery O2 Flow Rate FiO2 07/09/21 08:00 Room Air 07/09/21 07:52 97.7 97.7 07/09/21 07:15 58 18 122/53 (76) 95 Labs: Laboratory Tests Test 07/08/21 11:57 07/08/21 16:58 07/08/21 19:19 07/09/21 07:31 Glucose (Fingerstick) 118 mg/dL 144 mg/dL 213 mg/dL 136 mg/dL PE: GEN: NAD LUNGS: CTAB HEART: RRR ABD: S/ND/NT NEURO/PSYCH: A & O 3 A/P: Abdominal pain, diarrhea - better H/o diverticulitis - not on CT this time Depression -- Significant time spent again - advised further workup as outpt as previously discussed/planned. DC per primary. Justicifation of Admission Dx: Justifications for Admission: Justification of Admission Dx: Yes FAVIOLA LYNN Jul 09, 2021 10:08
[2021-07-09 10:58] VITALS: BP 115/56
[2021-07-09] MEDS ORDERED: HYDR-2769 PO (11:03)
--- NOTE | 2021-07-09 11:38 | NUR ---
SW following. Chart reviewed, discharge order for home with self care. No SW needs identified.
== END 2021-07-09 12:11 | disposition home or self-care (01) | DRG 439 ==
LOC: ER 09:13 → 4 NORTH 12:45 → OBSVTOIN 07-06 23:26
PROVIDERS: ADMIT Internal Medicine; ATTEND Internal Medicine
DX: K85.90 Acute pancreatitis without necrosis or infection, unspecified (principal); E87.1 Hypo-osmolality and hyponatremia; K52.9 Noninfective gastroenteritis and colitis, unspecified; K21.9 Gastro-esophageal reflux disease without esophagitis; K57.90 Diverticulosis of intestine, part unspecified, without perforation or abscess without bleeding; E11.9 Type 2 diabetes mellitus without complications; E78.00 Pure hypercholesterolemia, unspecified; E78.5 Hyperlipidemia, unspecified; F32.A Depression, unspecified; I10 Essential (primary) hypertension; K22.70 Barrett's esophagus without dysplasia; K59.00 Constipation, unspecified; K82.8 Other specified diseases of gallbladder; R32 Unspecified urinary incontinence; Z82.49 Family history of ischemic heart disease and other diseases of the circulatory system; Z83.3 Family history of diabetes mellitus; Z85.3 Personal history of malignant neoplasm of breast; Z86.008 Personal history of in-situ neoplasm of other site; Z90.13 Acquired absence of bilateral breasts and nipples; Z90.710 Acquired absence of both cervix and uterus; D64.9 Anemia, unspecified; M19.90 Unspecified osteoarthritis, unspecified site
CPT/HCPCS: 36415; 71045; 74177; 76705; 80053; 81001; 82962; 83605; 83690; 83735; 84484; 85025; 93005; 96361; 96374; 96375; 96376; G0378; G0379; J2270; J2405; J7030; Q9967; 99285-25; Q0163